=== PATIENT | female | born 1945 | race Caucasian/White ===

== ENCOUNTER 2019-04-10 14:28 | Inpatient (IN) ==
[2019-04-10] MEDS ORDERED: SODIUM CHLORIDE 0.9% 1000ML 1,000 ML IV ONE ×2 (15:07→15:15)
[2019-04-10] MEDS ORDERED: PIPERACILL/TAZOBAC CONSULT ACTIVE PRN ×2 (15:15→19:28)
[2019-04-10] MEDS ORDERED: PIPERACILLIN/TAZOBACTAM 4.5 GM/120 ML BAG IV ONE (15:15)
--- NOTE | 2019-04-10 15:25 | XRay Report ---
XR chest 1V portable HISTORY: 73 years-old Female Sepsis acute sepsis COMPARISON: None available TECHNIQUE: Portable AP view of the chest FINDINGS: Cardiomediastinal and hilar silhouettes are within normal limits. No pneumothorax, pleural effusion, focal airspace consolidation or overt pulmonary edema. Mild right hemidiaphragmatic elevation. Degene rative changes of the shoulders and spine. IMPRESSION: No acute process. The above report was generated using voice recognition software. It may contain grammatical, syntax o r spelling errors. Electronically signed by: Sergio Badillo M.D. 04/10/2019 3:24 PM
[2019-04-10 15:39] LABS: Hematocrit (blood only) 36.5 % (37-47); Hemoglobin 12.3 g/dL (12.0-16.0); Immature Granulocytes # (auto) 0.03 K/uL (0.00-0.02); Immature Granulocytes % (auto) 0.3 %; Lymphocytes # (auto) 0.28 K/uL (1.2-3.4); Mean Corpuscular Hemoglobin 29.4 pg (25-34); Mean Corpuscular Hgb Conc 33.7 g/dL (32-36); Mean Corpuscular Volume 87.3 fL (80-100); Mean Platelet Volume 11.1 fL (7.4-10.4); Monocytes # (auto) 0.51 K/uL (0.11-0.59); Monocytes % (auto) 5.4 %; Neutrophils # (auto) 8.54 K/uL (1.4-6.5); Neutrophils % (auto) 91.3 %; Platelet Count 137 K/uL (130-400); RDW Coefficient of Variation 13.9 % (11.5-14.5); RDW Standard Deviation 44.4 fL (36.4-46.3); Red Blood Count 4.18 M/uL (4.2-5.4); White Blood Count 9.36 K/uL (4.8-10.8)
[2019-04-10 15:49] LABS: INR 1.1 (0.9-1.1); Partial Thromboplastin Ratio 1.1; Partial Thromboplastin Time 29.1 Seconds (21.0-31.0); Prothrombin Time 11.2 Seconds (9.0-12.0)
[2019-04-10 15:56] LABS: Albumin Level 3.6 gm/dl (3.4-5.0); Calcium 8.6 mg/dl (8.5-10.1); Creatinine Clr Calc Pharmacy 35.2 ml/min; Est GFR (African American) 42.1; Est GFR (Non-African American) 36.3; Potassium 3.5 mmol/L (3.5-5.1)
[2019-04-10 15:58] LABS: Albumin Globulin Ratio 0.9 (0.9-2); Bilirubin,Total 0.9 mg/dl (0.2-1); Total Protein 7.6 gm/dl (6.4-8.2)
[2019-04-10] MEDS ORDERED: IOVERSOL 100ml IV PRN (16:42)
--- NOTE | 2019-04-10 17:01 | CT Scan Report ---
CT OF THE ABDOMEN AND PELVIS WITH CONTRAST CLINICAL HISTORY: Abdominal pain and fever. History of bladder mass. COMPARISON STUDY: None. TECHNIQUE: Following IV administration of 92 mL of Optiray-320, axial images of the abdomen and pelvi s were obtained from the lung bases to the proximal femurs. Images were reviewed in the axial, sagitt al, and coronal planes. IV contrast was administered without complication. Automated exposure contro l was utilized for the study. A dose lowering technique was utilized adhering to the principles of A BARBARA. CT DOSE: 518.07 mGy.cm FINDINGS: A few tiny left lower lobe nodules measure up to 4 mm. A 3.8 cm cystic lateral segment hepa tic lesion measures near water attenuation. This contains a thin septation. An additional lateral seg ment lesion measures water attenuation and favors a cyst. There is probable fatty infiltration of the liver with slight nodularity of the liver surface. Mild dilatation of the common bile duct is noted, measuring 7 mm. The gallbladder is moderately distended with mild pericholecystic infiltration. Ther e is no peripancreatic infiltration. There is no pancreatic ductal dilatation. The spleen and adrenal glands are normal. There are bilateral parapelvic cysts. There are numerous subcentimeter bilateral renal lesions which are too small to characterize. No evidence for a bowel obstruction is noted. Ther e is colonic diverticulosis without evidence for acute diverticulitis. No suspicious osseous lesions are noted. There is no lymphadenopathy. Major vasculature is patent. IMPRESSION: 1. Findings highly suggestive of acute cholecystitis. Mild dilatation of the common bile duct. 2. 3.8 cm lateral segment hepatic cystic lesion. This contains a thin septation. This is probably chica ign however a follow-up nonemergent ultrasound is recommended to assess complexity. 3. Fatty infiltration liver with possible early cirrhosis. 4. No bowel obstruction. Colonic diverticulosis without evidence for acute diverticulitis. Electronically signed by: Marcus Bolden M.D. 04/10/2019 5:00 PM
[2019-04-10] MEDS ORDERED: metroNIDAZOLE 500 MG/100 ML BAG IV STA (17:41)
--- NOTE | 2019-04-10 18:43 | History & Physical Report ---
Date of Service April 10, 2019 Assessment & Plan (1) Acute calculous cholecystitis: 73-year-old female with acute calculus cholecystitis Admit to [facility] for laparoscopic cholecystectomy, possible cholangiogram tomorrow in the operating room The risk the procedure were discussed to include but not limited to bleeding, infection, retained stone, bile leak, conversion to open, damage to surrounding structures including common bile duct, need for future or more extensive surgery, and the risks of anesthesia Antibiotics Repeat labs in the morning Clear liquids tonight, n.p.o. after midnight Plan discussed the patient, all questions were answered, the patient expressed understanding agrees the plan of care as stated Present on Admission?: Yes (2) Hypothyroidism: Present on Admission?: Yes (3) Liver cyst: Repeat ultrasound as an outpatient Present on Admission?: Yes History of Present Illness Primary Care Provider: Antonia Harrell MD 73-year-old female presented to the emergency department with 2-day history of abdominal pain. Pain started Saturday. She had pancakes and baca for breakfast. She has had similar but not as severe pain in the past. The pain typically resolved on its own. She also had vomiting could not keep anything down. Her pain is diffuse but seems to be more centered in epigastrium. No prior abdominal surgeries. She is not on any blood thinners and is otherwise healthy except for some hypothyroidism. Allergies Allergy/AdvReac Type Severity Reaction Status Date / Time No Known Allergies Allergy Unverified 04/10/19 14:58 Home Medications Home Medications Medication Instructions Recorded Confirmed Type ibuprofen 800 mg PO DAILY 04/10/19 04/10/19 History levothyroxine [Synthroid] 25 mcg PO DAILY 04/10/19 04/10/19 History Past Med/Surg History Social History Preferred Language: Latvian Feels Safe at Home: Yes Smoking Status: Never smoker Review of Systems Review of Systems: All systems reviewed & are unremarkable except as noted in HPI & below Physical Exam Constitutional: WD/WN, vitals as above Eyes: PERRL, conjunctivae normal, anicteric sclerae ENMT: external ear and nose normal, oropharynx normal Neck: trachea midline, no thyromegaly Respiratory: normal respiratory effort, lungs clear to auscultation Cardiovascular: RRR, no murmur, no edema Gastrointestinal (Abdomen): Percussion/Palpation: + abdomen tender (Tender palpation in the epigastrium and right upper quadrant) and abdomen soft; no guarding, abdomen not rigid and no hepatosplenomegaly Musculoskeletal: no cyanosis or clubbing, extremities motor strength 5/5 Skin: no rashes, warm and dry Neurologic: PERRL, EOMI, accommodation nl, no face palsy, no dysarthria Psychiatric: A+Ox3, euthymic affect Lymphatic: no cervical or axillary lymphadenopathy Results & Data Vital Signs (Past 12 Hours) Vital Signs Temp Pulse Resp BP Pulse Ox 04/10/19 17:15 97 H 24 130/58 L 96 04/10/19 16:30 98 H 24 129/59 L 96 04/10/19 16:00 98 H 24 130/83 97 04/10/19 15:36 96 H 23 120/62 96 04/10/19 14:58 38 C H 111 H 20 105/61 96 Laboratory Results Laboratory Results - last 24 hr 04/10/19 04/10/19 04/10/19 15:26 15:26 15:26 WBC 9.36 RBC 4.18 L Hgb 12.3 Hct 36.5 L MCV 87.3 MCH 29.4 MCHC 33.7 RDW Std Deviation 44.4 RDW Coeff of Marlon 13.9 Plt Count 137 MPV 11.1 H Immature Gran % (Auto) 0.3 Neut % (Auto) 91.3 Lymph % (Auto) 3.0 [place] % (Auto) 5.4 Eos % (Auto) 0.0 Baso % (Auto) 0.0 Immature Gran # (Auto) 0.03 H Neut # (Auto) 8.54 H Lymph # (Auto) 0.28 L [place] # (Auto) 0.51 Eos # (Auto) 0.00 Baso # (Auto) 0.00 PT 11.2 INR 1.1 APTT 29.1 PTT Ratio 1.1 Sodium 133 L Potassium 3.5 Chloride 99 Carbon Dioxide 22 Anion Gap 12.0 H BUN 28 H Creatinine 1.41 H Est Cr Clr Drug Dosing 35.2 Est GFR ( Amer) 42.1 Est GFR (Non-Af Amer) 36.3 BUN/Creatinine Ratio 20.0 Glucose 155 H Lactate Calcium 8.6 Total Bilirubin 0.9 AST 27 ALT 26 Alkaline Phosphatase 64 Total Protein 7.6 Albumin 3.6 Globulin 4.0 Albumin/Globulin Ratio 0.9 04/10/19 15:26 WBC RBC Hgb Hct MCV MCH MCHC RDW Std Deviation RDW Coeff of Marlon Plt Count MPV Immature Gran % (Auto) Neut % (Auto) Lymph % (Auto) [place] % (Auto) Eos % (Auto) Baso % (Auto) Immature Gran # (Auto) Neut # (Auto) Lymph # (Auto) [place] # (Auto) Eos # (Auto) Baso # (Auto) PT INR APTT PTT Ratio Sodium Potassium Chloride Carbon Dioxide Anion Gap BUN Creatinine Est Cr Clr Drug Dosing Est GFR ( Amer) Est GFR (Non-Af Amer) BUN/Creatinine Ratio Glucose Lactate 2.0 Calcium Total Bilirubin AST ALT Alkaline Phosphatase Total Protein Albumin Globulin Albumin/Globulin Ratio Diagnostic Findings CT OF THE ABDOMEN AND PELVIS WITH CONTRAST CLINICAL HISTORY: Abdominal pain and fever. History of bladder mass. COMPARISON STUDY: None. TECHNIQUE: Following IV administration of 92 mL of Optiray-320, axial images of the abdomen and pelvis were obtained from the lung bases to the proximal femurs. Images were reviewed in the axial, sagittal, and coronal planes. IV contrast was administered without complication. Automated exposure control was utilized for the study. A dose lowering technique was utilized adhering to the principles of ALARA. CT DOSE: 518.07 mGy.cm FINDINGS: A few tiny left lower lobe nodules measure up to 4 mm. A 3.8 cm cystic lateral segment hepatic lesion measures near water attenuation. This contains a thin septation. An additional lateral segment lesion measures water attenuation and favors a cyst. There is probable fatty infiltration of the liver with slight nodularity of the liver surface. Mild dilatation of the common bile duct is noted, measuring 7 mm. The gallbladder is moderately distended with mild pericholecystic infiltration. There is no peripancreatic infiltration. There is no pancreatic ductal dilatation. The spleen and adrenal glands are normal. There are bilateral parapelvic cysts. There are numerous subcentimeter bilateral renal lesions which are too small to characterize. No evidence for a bowel obstruction is noted. There is colonic diverticulosis without evidence for acute diverticulitis. No suspicious osseous lesions are noted. There is no lymphadenopathy. Major vasculature is patent. IMPRESSION: 1. Findings highly suggestive of acute cholecystitis. Mild dilatation of the common bile duct. 2. 3.8 cm lateral segment hepatic cystic lesion. This contains a thin septation. This is probably benign however a follow-up nonemergent ultrasound is recommended to assess complexity. 3. Fatty infiltration liver with possible early cirrhosis. 4. No bowel obstruction. Colonic diverticulosis without evidence for acute diverticulitis. Code Status & VTE Plan VTE Prophylaxis Plan VTE Prophylaxis will be ordered: Yes PG Care Time/CCT Total # of Minutes Spent Total Time Spent: 60 Total Time Spent with Patient: Total time spent is greater than 50% in coordination of care (as documented) at patient's floor/unit and/or counseling patient:
[2019-04-10 19:05] LABS: Appearance Urine Clear (Clear); Bacteria Urine Automated Negative (Negative); Bilirubin Urine Negative (Negative); Blood Urine 2+ (Negative); Color Urine Yellow; Epithelial Cell Urine Auto >30 /lpf (0-5); Glucose Urine UA Negative (Negative); Ketones Urine 1+ (Negative); Leukocyte Esterase Urine Trace (Negative); Nitrite Urine Negative (Negative); Protein Urine 1+ (Negative); RBC Urine Automated 0-4 /hpf (0-4); Specific Gravity Urine > 1.045 (1.000-1.030); Urobilinogen Urine Negative (Negative)
[2019-04-10] MEDS: LACTATED RINGER'S 1,000 ML IV SCH (19:28)
[2019-04-10] MEDS ORDERED: MoRPHine SULFATE 4 MG/ML 1 ML CARP\\VIAL IV PRN (19:28)
--- NOTE | 2019-04-10 19:45 | Emergency Department Note ---
Entered by Concha Muniz acting as a scribe for History of Present Illness General Chief complaint: Vomiting Stated complaint: FEVER,VOMITING Source: patient History of Present Illness Onset (ago): day(s) 2 Location: abdomen Pain Consistency: + other (persistent) Quality: + other (vomiting) Exacerbated By: + eating Associated symptoms: + denies other symptoms (dysuria, open wounds or sores), + fever/chills (fever) and + other (rhinorrhea, abdominal pain, back pain); no cough The patient is a 73 year old female who presents to the Emergency Room with complaints of persistent vomiting starting 2 days ago. The patient states that 2 days ago she went to breakfast and when she got home, she started vomiting. She reports that she then developed a fever and rhinorrhea. She reports that today she went to her PCP because she was struggling to keep even water down. She states that while there they told her that her temperature was 103 and told her to come to the ED. The patient complains of abdominal pain that is worse with eating and back pain from vomiting. The patient denies cough, dysuria, and any open wounds or sores. Home Medications Home Medications Medication Instructions Recorded Confirmed Type ibuprofen 800 mg PO DAILY 04/10/19 04/10/19 History levothyroxine [Synthroid] 25 mcg PO DAILY 04/10/19 04/10/19 History Allergies Allergy/AdvReac Type Severity Reaction Status Date / Time No Known Allergies Allergy Unverified 04/10/19 14:58 Past Med/Surg History Medical History No known health problems Family History Other No significant family history Social History Preferred Language: Bengali marital status: Current Living Situation: Spouse current occupational status: retired Feels Safe at Home: Yes Smoking Status: Never smoker Review of Systems See HPI for pertinent positives & negatives. and A total of 10 systems reviewed and were otherwise negative Physical Exam Vital Signs Vital Signs - 24 hr 04/10/19 14:58 04/10/19 15:36 04/10/19 15:40 Temperature 38 C H Temperature Source Oral Sepsis Recent Fever Within 48 Hours Yes Sepsis New/Unexplained Change in Mental Status No Sepsis Action Taken by Nursing No Action Required Pulse Rate 111 H 96 H Pulse Rhythm Regular Pulse Strength Normal Respiratory Rate 20 23 Respiratory Effort / Characteristics Non-Labored Spontaneous Respiratory Depth Normal Respiratory Pattern Regular Blood Pressure 105/61 120/62 Blood Pressure Mean 75 81 Blood Pressure Position Sitting Pulse Oximetry 96 96 Oxygen Delivery Method Room Air Room Air Room Air 04/10/19 16:00 04/10/19 16:30 04/10/19 17:15 Temperature Temperature Source Sepsis Recent Fever Within 48 Hours Sepsis New/Unexplained Change in Mental Status Sepsis Action Taken by Nursing Pulse Rate 98 H 98 H 97 H Pulse Rhythm Pulse Strength Respiratory Rate 24 24 24 Respiratory Effort / Characteristics Respiratory Depth Respiratory Pattern Blood Pressure 130/83 129/59 L 130/58 L Blood Pressure Mean 98 82 82 Blood Pressure Position Pulse Oximetry 97 96 96 Oxygen Delivery Method Room Air Room Air Room Air 04/10/19 17:30 04/10/19 18:00 04/10/19 18:30 Temperature Temperature Source Sepsis Recent Fever Within 48 Hours Sepsis New/Unexplained Change in Mental Status Sepsis Action Taken by Nursing Pulse Rate 95 H 96 H 90 Pulse Rhythm Pulse Strength Respiratory Rate 22 18 12 Respiratory Effort / Characteristics Respiratory Depth Respiratory Pattern Blood Pressure 116/61 116/55 L 95/62 L Blood Pressure Mean 79 75 73 Blood Pressure Position Pulse Oximetry 97 97 96 Oxygen Delivery Method Room Air Room Air Room Air GENERAL: sitting up in bed, holding abdomen, in minimal distress EYE EXAM: normal conjunctiva OROPHARYNX: no exudate, no erythema, lips, buccal mucosa, and tongue normal and mucous membranes are moist NECK: supple, no nuchal rigidity, no adenopathy, non-tender LUNGS: Clear to auscultation. Normal chest wall mechanics HEART: Tachycardic, no murmurs, S1 normal and S2 normal ABDOMEN: abdomen soft, tender to palpation in left lower quadrant, normo-active bowel sounds, no masses, no rebound or guarding. BACK: Back is symmetrical on inspection and there is no deformity, no midline tenderness, no CVA tenderness. SKIN: no rashes and no bruising UPPER EXTREMITIES: upper extremities are grossly normal. LOWER EXTREMITIES: No pitting edema. NEURO EXAM: Normal sensorium, cranial nerves II-XII grossly intact, normal speech, no gross weakness of arms, no gross weakness of legs. Course ED COURSE: Vital signs were reviewed and showed tachycardia and febrile. The patients medical record was reviewed The above diagnostic studies were performed and reviewed. ED treatments and interventions as stated above. 1510: The patient was evaluated in room C2B. A complete history and physical examination was performed. 1722: Upon reevaluation, the patient is resting comfortably. I discussed my findings with the patient and she understands and agrees with the treatment plan. Based on the patients age, coexisting illnesses, exam and lab findings the decision to treat as an inpatient was made. The patient remained stable while under my care. The patient will be evaluated for further management. 1739: I discussed the patient's case with Dr. England- General Surgeon. He will evaluate the patient for further management. Consultations Consultation #1: I discussed the patient's case with Dr. England- General Surgeon. He will evaluate the patient for further management. Time: 17:39 Administered Medications Discontinued Medications Sodium Chloride (Nss 1000ml) 1,000 mls @ 999 mls/hr IV .Q1H1M ONE Stop: 04/10/19 16:07 Last Infusion: 04/10/19 16:29 Dose: 0 mls/hr Documented by: [id number] Admin: 04/10/19 15:26 Dose: 999 mls/hr Documented by: [id number] Piperacillin Sod/Tazobactam Sod (Zosyn) 4.5 gm in 120 mls @ 240 mls/hr IV NOW ONE Stop: 04/10/19 15:44 Last Infusion: 04/10/19 17:40 Dose: 0 mls/hr Documented by: [id number] Admin: 04/10/19 17:10 Dose: 240 mls/hr Documented by: [id number] Sodium Chloride (Nss 1000ml) 1,000 mls @ 999 mls/hr IV .Q1H1M ONE Stop: 04/10/19 16:15 Last Infusion: 04/10/19 18:50 Dose: 0 mls/hr Documented by: [id number] Admin: 04/10/19 17:10 Dose: 999 mls/hr Documented by: [id number] Metronidazole (Flagyl) 500 mg in 100 mls @ 100 mls/hr IV NOW STA Stop: 04/10/19 18:40 Last Admin: 04/10/19 18:50 Dose: 100 mls/hr Documented by: [id number] Ioversol (Optiray 320 100ml) 92 ml IV ONCE PRN PRN Reason: Interaction Checking Stop: 04/14/19 16:41 Last Admin: 04/10/19 16:42 Dose: 92 ml Documented by: [id number] Medical Decision Making Differential Diagnosis Differential diagnosis includes etiologies such as sepsis, UTI, pneumonia, metabolic, electrolyte abnormalities, cardiac sources, intracerebral event, toxicologic, neurologic, as well as others were entertained. Medical Records Attestation: I reviewed the patient's medical records. Home Medications Current Medication List: was personally reviewed by me Laboratory Data Attestation: I reviewed the patient's lab results. Result diagrams: 04/10/19 15:26 04/10/19 15:26 Lab Results 04/10/19 04/10/19 04/10/19 Range/Units 15:26 15:26 15:26 WBC 9.36 (4.8-10.8) K/uL RBC 4.18 L (4.2-5.4) M/uL Hgb 12.3 (12.0-16.0) g/dL Hct 36.5 L (37-47) % MCV 87.3 (80-100) fL MCH 29.4 (25-34) pg MCHC 33.7 (32-36) g/dL RDW Std Deviation 44.4 (36.4-46.3) fL RDW Coeff of Marlon 13.9 (11.5-14.5) % Plt Count 137 (130-400) K/uL MPV 11.1 H (7.4-10.4) fL Immature Gran % (Auto) 0.3 % Neut % (Auto) 91.3 % Lymph % (Auto) 3.0 % [place] % (Auto) 5.4 % Eos % (Auto) 0.0 % Baso % (Auto) 0.0 % Immature Gran # (Auto) 0.03 H (0.00-0.02) K/uL Neut # (Auto) 8.54 H (1.4-6.5) K/uL Lymph # (Auto) 0.28 L (1.2-3.4) K/uL [place] # (Auto) 0.51 (0.11-0.59) K/uL Eos # (Auto) 0.00 (0-0.5) K/uL Baso # (Auto) 0.00 (0-0.2) K/uL PT 11.2 (9.0-12.0) Seconds INR 1.1 (0.9-1.1) APTT 29.1 (21.0-31.0) Seconds PTT Ratio 1.1 Sodium 133 L (136-145) mmol/L Potassium 3.5 (3.5-5.1) mmol/L Chloride 99 (98-107) mmol/L Carbon Dioxide 22 (21-32) mmol/L Anion Gap 12.0 H (3-11) BUN 28 H (7-18) mg/dl Creatinine 1.41 H (0.6-1.2) mg/dl Est Cr Clr Drug Dosing 35.2 ml/min Est GFR ( Amer) 42.1 Est GFR (Non-Af Amer) 36.3 BUN/Creatinine Ratio 20.0 (10-20) Glucose 155 H (70-99) mg/dl Lactate (0.4-2.0) mmol/L Calcium 8.6 (8.5-10.1) mg/dl Total Bilirubin 0.9 (0.2-1) mg/dl AST 27 (15-37) U/L ALT 26 (12-78) U/L Alkaline Phosphatase 64 (45-117) U/L Total Protein 7.6 (6.4-8.2) gm/dl Albumin 3.6 (3.4-5.0) gm/dl Globulin 4.0 (2.5-4.0) gm/dl Albumin/Globulin Ratio 0.9 (0.9-2) 04/10/19 Range/Units 15:26 WBC (4.8-10.8) K/uL RBC (4.2-5.4) M/uL Hgb (12.0-16.0) g/dL Hct (37-47) % MCV (80-100) fL MCH (25-34) pg MCHC (32-36) g/dL RDW Std Deviation (36.4-46.3) fL RDW Coeff of Marlon (11.5-14.5) % Plt Count (130-400) K/uL MPV (7.4-10.4) fL Immature Gran % (Auto) % Neut % (Auto) % Lymph % (Auto) % [place] % (Auto) % Eos % (Auto) % Baso % (Auto) % Immature Gran # (Auto) (0.00-0.02) K/uL Neut # (Auto) (1.4-6.5) K/uL Lymph # (Auto) (1.2-3.4) K/uL [place] # (Auto) (0.11-0.59) K/uL Eos # (Auto) (0-0.5) K/uL Baso # (Auto) (0-0.2) K/uL PT (9.0-12.0) Seconds INR (0.9-1.1) APTT (21.0-31.0) Seconds PTT Ratio Sodium (136-145) mmol/L Potassium (3.5-5.1) mmol/L Chloride (98-107) mmol/L Carbon Dioxide (21-32) mmol/L Anion Gap (3-11) BUN (7-18) mg/dl Creatinine (0.6-1.2) mg/dl Est Cr Clr Drug Dosing ml/min Est GFR ( Amer) Est GFR (Non-Af Amer) BUN/Creatinine Ratio (10-20) Glucose (70-99) mg/dl Lactate 2.0 (0.4-2.0) mmol/L Calcium (8.5-10.1) mg/dl Total Bilirubin (0.2-1) mg/dl AST (15-37) U/L ALT (12-78) U/L Alkaline Phosphatase (45-117) U/L Total Protein (6.4-8.2) gm/dl Albumin (3.4-5.0) gm/dl Globulin (2.5-4.0) gm/dl Albumin/Globulin Ratio (0.9-2) Imaging Data Radiologist's Impression: Radiology results as stated below per my review and the radiologist's interpretation: XR chest 1V portable HISTORY: 73 years-old Female Sepsis acute sepsis COMPARISON: None available TECHNIQUE: Portable AP view of the chest FINDINGS: Cardiomediastinal and hilar silhouettes are within normal limits. No pneumothorax, pleural effusion, focal airspace consolidation or overt pulmonary edema. Mild right hemidiaphragmatic elevation. Degenerative changes of the shoulders and spine. IMPRESSION: No acute process. The above report was generated using voice recognition software. It may contain grammatical, syntax or spelling errors. Electronically signed by: Sergio Badillo M.D. 04/10/2019 3:[address] OF THE ABDOMEN AND PELVIS WITH CONTRAST CLINICAL HISTORY: Abdominal pain and fever. History of bladder mass. COMPARISON STUDY: None. TECHNIQUE: Following IV administration of 92 mL of Optiray-320, axial images of the abdomen and pelvis were obtained from the lung bases to the proximal femurs. Images were reviewed in the axial, sagittal, and coronal planes. IV contrast was administered without complication. Automated exposure control was utilized for the study. A dose lowering technique was utilized adhering to the principles of ALARA. CT DOSE: 518.07 mGy.cm FINDINGS: A few tiny left lower lobe nodules measure up to 4 mm. A 3.8 cm cystic lateral segment hepatic lesion measures near water attenuation. This contains a thin septation. An additional lateral segment lesion measures water attenuation and favors a cyst. There is probable fatty infiltration of the liver with slight nodularity of the liver surface. Mild dilatation of the common bile duct is noted, measuring 7 mm. The gallbladder is moderately distended with mild pericholecystic infiltration. There is no peripancreatic infiltration. There is no pancreatic ductal dilatation. The spleen and adrenal glands are normal. There are bilateral parapelvic cysts. There are numerous subcentimeter bilateral renal lesions which are too small to characterize. No evidence for a bowel obstruction is noted. There is colonic diverticulosis without evidence for acute diverticulitis. No suspicious osseous lesions are noted. There is no lymphadenopathy. Major vasculature is patent. IMPRESSION: 1. Findings highly suggestive of acute cholecystitis. Mild dilatation of the common bile duct. 2. 3.8 cm lateral segment hepatic cystic lesion. This contains a thin septation. This is probably benign however a follow-up nonemergent ultrasound is recommended to assess complexity. 3. Fatty infiltration liver with possible early cirrhosis. 4. No bowel obstruction. Colonic diverticulosis without evidence for acute diverticulitis. Electronically signed by: Marcus Bolden M.D. 04/10/2019 5:00 PM ECG Data Attestation: I personally reviewed and interpreted this ECG as follows: Indication: other (sepsis) Rate (beats per minute): 101 Rhythm: sinus tachycardia Findings: + other (normal axis); no PVC Blood Pressure Blood Pressure Findings: Normal blood pressure Blood Pressure Disposition: did not require urgent referral MDM Narrative Patient is a 73-year-old female who presents the ER febrile and tachycardic. She is complaining of mild abdominal pain and vomiting for the past 2 to 3 days. IV was established blood work was obtained shows no significant leukocytosis or anemia. INR is unremarkable. BMP was unremarkable. LFTs bilirubin was unremarkable as well. UA was contaminated. CT of the abdomen pelvis confirms acute cholecystitis. Patient was given IV fluids, IV Zosyn and Flagyl. Patient did not want anything for pain medications. Patient was updated bedside. Did discuss with hospitalist and patient was admitted for acute cholecystitis. Impression & Plan Cholecystitis, Sepsis Discharge Plan Visit Data *Final* Discharge Date/Time: 04/10/19 18:59 Chief Complaint: Vomiting Stated Complaint: FEVER,VOMITING ED Provider: Kahlil Lu Discharge Problem: Cholecystitis, Sepsis Patient Disposition: Admitted As Inpatient Discharge Instructions Interventions: ED Discharge Assessment Last Done: 04/10/19 18:59 Discharge Problem: Sepsis Qualifiers: Sepsis type: sepsis due to unspecified organism Sepsis acute organ dysfunction status: unspecified Qualified Code(s): A41.9 - Sepsis, unspecified organism The scribe's documentation has been prepared under my direction and personally reviewed by me in its entirety. I confirm that the note above accurately reflects all work, treatment, procedures, and medical decision making performed by me.
[2019-04-10] MEDS: ACETAMINOPHEN 1,000 MG/100 ML VIAL IV PRN (20:16)
[2019-04-10] MEDS: PIPERACILLIN/TAZOBACTAM 3.375 GM in DEXTROSE 5% 100 ML IV SCH (22:03)
[2019-04-11] MEDS: MoRPHine SULFATE 2 MG/ML CARP IV PRN ×2 (01:50→13:46)
[2019-04-11] MEDS: LACTATED RINGER'S 1,000 ML IV SCH ×4 (03:22→23:33)
[2019-04-11] MEDS: PIPERACILLIN/TAZOBACTAM 3.375 GM in DEXTROSE 5% 100 ML IV SCH ×3 (05:40→21:20)
[2019-04-11 06:53] LABS: Basophils # (auto) 0.01 K/uL (0-0.2); Basophils % (auto) 0.1 %; Hematocrit (blood only) 33.8 % (37-47); Hemoglobin 11.3 g/dL (12.0-16.0); Immature Granulocytes # (auto) 0.02 K/uL (0.00-0.02); Immature Granulocytes % (auto) 0.2 %; Lymphocytes # (auto) 0.48 K/uL (1.2-3.4); Lymphocytes % (auto) 5.8 %; Mean Corpuscular Hemoglobin 29.4 pg (25-34); Mean Corpuscular Hgb Conc 33.4 g/dL (32-36); Mean Corpuscular Volume 87.8 fL (80-100); Mean Platelet Volume 11.6 fL (7.4-10.4); Monocytes # (auto) 0.61 K/uL (0.11-0.59); Monocytes % (auto) 7.4 %; Neutrophils # (auto) 7.15 K/uL (1.4-6.5); Neutrophils % (auto) 86.5 %; Platelet Count 105 K/uL (130-400); Red Blood Count 3.85 M/uL (4.2-5.4); White Blood Count 8.27 K/uL (4.8-10.8)
[2019-04-11 07:51] LABS: Albumin Globulin Ratio 0.8 (0.9-2); Albumin Level 2.6 gm/dl (3.4-5.0); BUN Creatinine Ratio 19.5 (10-20); Bilirubin,Total 1.6 mg/dl (0.2-1); Calcium 7.8 mg/dl (8.5-10.1); Creatinine Clr Calc Pharmacy 50.2 ml/min; Est GFR (African American) 64.6; Est GFR (Non-African American) 55.7; Globulin 3.3 gm/dl (2.5-4.0); Potassium 3.2 mmol/L (3.5-5.1); Total Protein 5.9 gm/dl (6.4-8.2)
[2019-04-11] MEDS: ONDANSETRON INJ 2 MG/ML 2 ML VIAL IV PRN ×2 (08:23→15:08)
--- NOTE | 2019-04-11 08:30 | Anesthesiology Consultation ---
Date of Service April 11, 2019 Assessment & Plan (1) Encounter for pre-operative examination: History Surgery Operation Date: 04/11/19 08:30 Proposed Procedures p Laparoscopic Cholecystectomy possible cholangiogram - Malik England DO, FACS Height/Weight Height: 5 ft 5 in Weight: 76.5 kg Allergies Allergy/AdvReac Type Severity Reaction Status Date / Time No Known Allergies Allergy Unverified 04/10/19 14:58 Medications Home Medications Medication Instructions Recorded Confirmed Last Taken ibuprofen 800 mg PO DAILY 04/10/19 04/10/19 04/09/19 21:00 levothyroxine [Synthroid] 25 mcg PO DAILY 04/10/19 04/10/19 04/10/19 Active Medications Generic Name Dose Route Start Last Admin Trade Name Freq PRN Reason Stop Dose Admin Lactated Ringer's 1,000 mls @ 125 mls/hr 04/10/19 19:28 04/11/19 03:22 Lr IV 05/10/19 19:27 125 mls/hr .Q8H GEENA Administration Acetaminophen 1,000 mg in 100 mls @ 400 mls/hr 04/10/19 19:28 04/10/19 20:31 Ofirmev IV 05/10/19 19:27 Infused Q8H PRN Infusion MILD Pain (Scale 1,2,3) Piperacillin Sod/Tazobactam 115 mls @ 28.75 mls/hr 04/10/19 22:00 04/11/19 05:40 Sod 3.375 gm/ Dextrose IV 04/20/19 21:59 28.8 mls/hr Q8H GEENA Administration Protocol Morphine Sulfate 2 mg 04/10/19 19:28 04/11/19 01:50 Morphine Sulfate IV 04/24/19 19:27 2 mg Q3H PRN Administration MODERATE Pain (Scale 4,5,6) Ondansetron HCl 4 mg 04/10/19 19:28 04/11/19 08:23 Zofran IV 05/10/19 19:27 4 mg Q4H PRN Administration Nausea And Vomiting NPO Date Last Intake of Fluids: 04/10/19 Time Last Intake of Fluids: 23:59 Date Last Intake of Solids: 04/10/19 Time Last Intake of Solids: 23:59 Past Medical History Medical History Cholecystitis Hypothyroidism No known health problems Past Family History Family History Other No significant family history Social History Smoking Status: Never smoker Hx Alcohol Use: No Hx Substance Use: No Physical Exam Vital Signs Last Vital Signs Temp 36.4 C L 04/11/19 07:18 Pulse 84 04/11/19 07:18 Resp 16 04/11/19 07:18 BP 105/64 04/11/19 07:18 Pulse Ox 95 04/11/19 07:18 Testing Laboratory Results 04/11/19 05:55 04/11/19 05:55 PT 11.2 Seconds (9.0-12.0) 04/10/19 15:26 INR 1.1 (0.9-1.1) 04/10/19 15:26 APTT 29.1 Seconds (21.0-31.0) 04/10/19 15:26 Urine Color Yellow 04/10/19 18:45 Urine Appearance Clear (Clear) 04/10/19 18:45 Urine pH 5.0 (4.5-7.5) 04/10/19 18:45 Ur Specific Coleman > 1.045 (1.000-1.030) H 04/10/19 18:45 Urine Protein 1+ (Negative) H 04/10/19 18:45 Urine Glucose (UA) Negative (Negative) 04/10/19 18:45 Urine Ketones 1+ (Negative) H 04/10/19 18:45 Urine Nitrite Negative (Negative) 04/10/19 18:45 Ur Leukocyte Esterase Trace (Negative) H 04/10/19 18:45 Urine WBC (Auto) 1-5 /hpf (0-5) 04/10/19 18:45 Urine RBC (Auto) 0-4 /hpf (0-4) 04/10/19 18:45 U Hyaline Cast (Auto) 10-30 /lpf (0-5) H 04/10/19 18:45 U Epithel Cells (Auto) >30 /lpf (0-5) H 04/10/19 18:45 Urine Bacteria (Auto) Negative (Negative) 04/10/19 18:45 04/10/19 15:26 Aerobic Blood Culture - Preliminary Blood Gram negative bacilli Anaerobic Blood Culture - Preliminary Gram negative bacilli 04/10/19 15:13 Aerobic Blood Culture - Preliminary Blood Gram negative bacilli Electrocardiogram Date: 04/10/19 Findings: + ST @ (101) Chest X-Ray Date: 04/10/19 Findings: + NAD
[2019-04-11] MEDS ORDERED: HYDROmorphone INJ 1 MG/ML SYRINGE IV PRN (08:32)
[2019-04-11] MEDS ORDERED: fentaNYL citrate 100 MCG/2 ML VIAL IV PRN (08:32)
[2019-04-11] MEDS ORDERED: ePHEDrine sulfate 50 MG/ML AMP IV PRN (08:32)
[2019-04-11] MEDS ORDERED: ATROPINE SULFATE 0.1 MG/ML 10ML SYR IV PRN (08:32)
[2019-04-11] MEDS ORDERED: ONDANSETRON INJ 2 MG/ML 2 ML VIAL IV PRN (08:32)
[2019-04-11] MEDS ORDERED: LIDOCAINE HCL 2% 2 ML VIAL/AMP(20MG/ML) INFIL ONE (08:37)
[2019-04-11] MEDS ORDERED: ONDANSETRON INJ 2 MG/ML 2 ML VIAL ONE ×2 (08:37→10:27)
[2019-04-11] MEDS ORDERED: fentaNYL citrate 100 MCG/2 ML VIAL ONE (08:37)
[2019-04-11] MEDS ORDERED: ROCURONIUM BROMIDE 10 MG/ML 5 ML VIAL ONE (08:37)
[2019-04-11] MEDS ORDERED: DEXAMETHASONE SOD INJ 4 MG/ML VIAL ONE (08:37)
[2019-04-11] MEDS ORDERED: PROPOFOL IV EMULSION 10 MG/ML 20 ML VIAL IV ONE (08:37)
[2019-04-11] MEDS ORDERED: CONRAY 60% 50 ML VIAL ONE (08:45)
[2019-04-11] MEDS ORDERED: BUPIVACAINE 0.5 % 5 MG/1 ML MPF 30ML VIAL ONE (08:45)
--- NOTE | 2019-04-11 08:48 | Surgery Progress Note ---
Date of Service April 11, 2019 Assessment & Plan (1) Acute calculous cholecystitis: 73-year-old female with acute calculus cholecystitis Plan for laparoscopic cholecystectomy, possible cholangiogram today The risks of the procedure were discussed to include but not limited to bleeding, infection, retained stone, bile leak, conversion to open, damage to surrounding structures including common bile duct, need for future or more extensive surgery, and the risks of anesthesia + blood cultures, consult ID, continue zosyn post op Plan discussed the patient, all questions were answered, the patient expressed understanding agrees the plan of care as stated (2) Hypothyroidism: (3) Liver cyst: Repeat ultrasound as an outpatient (4) Gram negative sepsis: Subjective 73 y/o female admitted with cholecystitis. NO changes overnight. Called with +blood cultures. On abx. Review of Systems Review of Systems: All systems reviewed & are unremarkable except as noted in HPI & below Physical Exam Constitutional: WD/WN, vitals as above Eyes: PERRL, conjunctivae normal, anicteric sclerae ENMT: external ear and nose normal, oropharynx normal Neck: trachea midline, no thyromegaly Respiratory: normal respiratory effort, lungs clear to auscultation Cardiovascular: RRR, no murmur, no edema Gastrointestinal (Abdomen): Percussion/Palpation: + abdomen tender (Tender palpation in the epigastrium and right upper quadrant) and abdomen soft; no guarding, abdomen not rigid and no hepatosplenomegaly Musculoskeletal: no cyanosis or clubbing, extremities motor strength 5/5 Skin: no rashes, warm and dry Neurologic: PERRL, EOMI, accommodation nl, no face palsy, no dysarthria Psychiatric: A+Ox3, euthymic affect Lymphatic: no cervical or axillary lymphadenopathy Results & Data Vital Signs (Past 12 Hours) Vital Signs Temp Pulse Resp BP Pulse Ox 04/11/19 07:18 36.4 C L 84 16 105/64 95 04/10/19 23:13 36.4 C L 69 16 89/53 L 94 Laboratory Results Laboratory Results - last 24 hr 04/10/19 04/10/19 04/10/19 15:26 15:26 15:26 WBC 9.36 RBC 4.18 L Hgb 12.3 Hct 36.5 L MCV 87.3 MCH 29.4 MCHC 33.7 RDW Std Deviation 44.4 RDW Coeff of Marlon 13.9 Plt Count 137 MPV 11.1 H Immature Gran % (Auto) 0.3 Neut % (Auto) 91.3 Lymph % (Auto) 3.0 Gentry % (Auto) 5.4 Eos % (Auto) 0.0 Baso % (Auto) 0.0 Immature Gran # (Auto) 0.03 H Neut # (Auto) 8.54 H Lymph # (Auto) 0.28 L Gentry # (Auto) 0.51 Eos # (Auto) 0.00 Baso # (Auto) 0.00 PT 11.2 INR 1.1 APTT 29.1 PTT Ratio 1.1 Sodium 133 L Potassium 3.5 Chloride 99 Carbon Dioxide 22 Anion Gap 12.0 H BUN 28 H Creatinine 1.41 H Est Cr Clr Drug Dosing 35.2 Est GFR ( Amer) 42.1 Est GFR (Non-Af Amer) 36.3 BUN/Creatinine Ratio 20.0 Glucose 155 H Lactate Calcium 8.6 Total Bilirubin 0.9 AST 27 ALT 26 Alkaline Phosphatase 64 Total Protein 7.6 Albumin 3.6 Globulin 4.0 Albumin/Globulin Ratio 0.9 Urine Color Urine Appearance Urine pH Ur Specific [place] Urine Protein Urine Glucose (UA) Urine Ketones Urine Blood Urine Nitrite Urine Bilirubin Urine Urobilinogen Ur Leukocyte Esterase Urine WBC (Auto) Urine RBC (Auto) U Hyaline Cast (Auto) U Epithel Cells (Auto) Urine Bacteria (Auto) Granular Casts Urine Yeast 04/10/19 04/10/19 04/11/19 15:26 18:45 05:55 WBC 8.27 RBC 3.85 L Hgb 11.3 L Hct 33.8 L MCV 87.8 MCH 29.4 MCHC 33.4 RDW Std Deviation 45.0 RDW Coeff of Marlon 14.0 Plt Count 105 L MPV 11.6 H Immature Gran % (Auto) 0.2 Neut % (Auto) 86.5 Lymph % (Auto) 5.8 Gentry % (Auto) 7.4 Eos % (Auto) 0.0 Baso % (Auto) 0.1 Immature Gran # (Auto) 0.02 Neut # (Auto) 7.15 H Lymph # (Auto) 0.48 L Gentry # (Auto) 0.61 H Eos # (Auto) 0.00 Baso # (Auto) 0.01 PT INR APTT PTT Ratio Sodium Potassium Chloride Carbon Dioxide Anion Gap BUN Creatinine Est Cr Clr Drug Dosing Est GFR ( Amer) Est GFR (Non-Af Amer) BUN/Creatinine Ratio Glucose Lactate 2.0 Calcium Total Bilirubin AST ALT Alkaline Phosphatase Total Protein Albumin Globulin Albumin/Globulin Ratio Urine Color Yellow Urine Appearance Clear Urine pH 5.0 Ur Specific [place] > 1.045 H Urine Protein 1+ H Urine Glucose (UA) Negative Urine Ketones 1+ H Urine Blood 2+ H Urine Nitrite Negative Urine Bilirubin Negative Urine Urobilinogen Negative Ur Leukocyte Esterase Trace H Urine WBC (Auto) 1-5 Urine RBC (Auto) 0-4 U Hyaline Cast (Auto) 10-30 H U Epithel Cells (Auto) >30 H Urine Bacteria (Auto) Negative Granular Casts 1-5 H Urine Yeast Not Reportable 04/11/19 05:55 WBC RBC Hgb Hct MCV MCH MCHC RDW Std Deviation RDW Coeff of Marlon Plt Count MPV Immature Gran % (Auto) Neut % (Auto) Lymph % (Auto) Gentry % (Auto) Eos % (Auto) Baso % (Auto) Immature Gran # (Auto) Neut # (Auto) Lymph # (Auto) Gentry # (Auto) Eos # (Auto) Baso # (Auto) PT INR APTT PTT Ratio Sodium 137 Potassium 3.2 L Chloride 105 Carbon Dioxide 23 Anion Gap 9.0 BUN 19 H Creatinine 0.99 D Est Cr Clr Drug Dosing 50.2 Est GFR ( Amer) 64.6 Est GFR (Non-Af Amer) 55.7 BUN/Creatinine Ratio 19.5 Glucose 105 H Lactate Calcium 7.8 L Total Bilirubin 1.6 H D AST 79 H ALT 44 Alkaline Phosphatase 65 Total Protein 5.9 L D Albumin 2.6 L Globulin 3.3 Albumin/Globulin Ratio 0.8 L Urine Color Urine Appearance Urine pH Ur Specific [place] Urine Protein Urine Glucose (UA) Urine Ketones Urine Blood Urine Nitrite Urine Bilirubin Urine Urobilinogen Ur Leukocyte Esterase Urine WBC (Auto) Urine RBC (Auto) U Hyaline Cast (Auto) U Epithel Cells (Auto) Urine Bacteria (Auto) Granular Casts Urine Yeast Procedure Result Verified Site Blood Culture Aerobic Preliminary 04/11/19-0318 Organism 1 Gram negative bacilli Sens Sensitivities Dependent on Further Identification Blood Culture Anaerobic Preliminary 04/11/19-0200 Organism 1 Gram negative bacilli Sens No Sensitivities to Follow Phoned positive Blood Culture Gram Stain report to JESSICA COBOS on 04/11/19 at 0159 [place] [id number]. [place] [id number]. PG Care Time/CCT Total # of Minutes Spent Total Time Spent with Patient: Total time spent is greater than 50% in coordination of care (as documented) at patient's floor/unit and/or counseling patient:
--- NOTE | 2019-04-11 10:04 | Fluoroscopy Report ---
INTRAOPERATIVE CHOLANGIOGRAM HISTORY: Post cholecystectomy. FLUOROSCOPY TIME: 8 seconds. FINDINGS: Fluoroscopy was provided for an intraoperative cholangiogram status post cholecystectomy. C ontrast was injected through the cystic duct remnant. The common bile duct is normal in course and ca liber. There are no filling defects seen within the common bile duct to suggest a retained stone. Co ntrast extends into the small bowel. There is no intrahepatic bile duct dilatation. IMPRESSION: Fluoroscopy provided for an intraoperative cholangiogram status post cholecystectomy. No filling defects within the common bile duct. Electronically signed by: Savage Wakefield M.D. 04/11/2019 10:02 AM
[2019-04-11] MEDS ORDERED: GLYCOPYRROLATE 0.2 MG/ML VIAL ONE (10:27)
[2019-04-11] MEDS ORDERED: NEOSTIGMINE METHYLSULFATE 5 MG/5 ML SYR ONE (10:27)
--- NOTE | 2019-04-11 10:33 | Operative Report ---
PG Post Operative Report Pre & Post Diagnosis Operation Date: 04/11/19 08:30 Pre-Op Diagnosis: CHOLECYSTITIS Post-Op Diagnosis: CHOLECYSTITIS, possible cirrhosis Procedure Operation Date: 04/11/19 08:30 Laparoscopic cholecystectomy with cholangiogram, liver biopsy Surgeon Malik England DO, FACS Pleating Machine Operator Angela Menon Estimated Blood Loss 15 Findings Consistent with Post-Op Diagnosis Acute cholecystitis. Cholangiogram performed and showed patent biliary system. Critical view of safety obtained, cystic duct and artery doubly clipped and divided. Liver had a mottled appearance to it, a liver biopsy was performed. Good hemostasis. Specimens Gallbladder Liver Anesthesia Type General Complications none Disposition Accompanied Patient To Recovery: No Disposition: Recovery Room Indications 73-year-old female presented to the emergency department with signs and symptoms of acute cholecystitis along with blood cultures growing gram-negative bacteria. She was treated with antibiotics overnight, plan for laparoscopic cholecystectomy with cholangiogram. The risks of the procedure were discussed, all questions were answered, and the patient agreed to proceed with surgery as planned. Description of Procedure The patient was properly identified, consented, and taken to the operating room where she was placed in the supine position. General endotracheal anesthesia was induced. SCDs and a safety belt were placed. Preoperative antibiotics were administered. The patient's abdomen was prepped and draped in the standard sterile fashion. A surgical timeout was performed and all parties were in agreement that this was the correct patient and procedure to be performed and we continued as planned. An incision was made superior and to the left of the umbilicus overlying the rectus muscle and the Veress needle was inserted. Saline drop test confirmed entry into the peritoneum. The abdomen was insufflated with carbon dioxide which the patient tolerated without incident. The abdomen was then entered using the Optiview technique and a 5 mm trocar. The laparoscope was inserted and no damage from initial trocar or Veress needle placement was noted, no gross abnormalities were noted within the 4 quadrants of the abdomen. An 11 mm port was placed in the subxiphoid position and two 5 mm ports were then placed in the right subcostal position. The patient was placed in reverse Trendelenburg position and rotated towards the left. The gallbladder was acutely inflamed and very friable. It tore during retraction and dark bilious liquid was drained. The liver also appeared mottled consistent with signs of possible early cirrhosis. The dome of the gallbladder was retracted towards the left upper quadrant and the infundibulum was retracted toward the right lower quadrant revealing Calot's triangle. Peritoneal attachments were taken down with electrocautery and blunt dissection. The cystic duct and artery were circumferentially dissected. A window of safety was obtained showing the cystic duct entering the gallbladder with no aberrant structures noted. The Espinoza cholangiocatheter was then used to perform an intraoperative cholangiogram which showed no filling defects, and good filling of the duodenum and hepatic radicals with contrast. The cystic duct and artery were doubly clipped and divided. The gallbladder was then lifted off the gallbladder fossa with electrocautery. The gallbladder was placed in an Endo Catch bag and removed through the subxiphoid port site. Using the harmonic scalpel liver biopsy was performed. The right upper quadrant was irrigated and hemostasis was found to be good. 5 mm trochars were removed under direct visualization and the abdomen was allowed to collapse. The subxiphoid port site fascia was closed with 0 Vicryl suture utilizing the Сергей-Vero device. The wound was irrigated, and the skin of all ports was closed with 4-0 Monocryl subcuticular sutures. Dermabond was placed over the wounds. The patient was extubated in the operating room and taken to the PACU where she recovered without apparent incident. All sponge, instrument and needle counts were correct at the conclusion of the procedure. The patient tolerated the procedure well. The physician's orthodontist assistant was present and scrubbed for the entirety of the case and was essential in positioning the patient, prepping and draping, retraction and exposure, driving the laparoscope, removal of the gallbladder, closure the incisions, and placement of the dressings. I attest to the content of the Intraoperative Record and any orders documented therein. Any exceptions are noted below.
--- NOTE | 2019-04-11 11:19 | Anesthesiology Progress Note ---
Date of Service April 11, 2019 Anesthesia Post Procedure Vital Signs Vital Signs: Temp Pulse Pulse Pulse Resp BP BP 04/11/19 11:10 83 18 127/60 04/11/19 11:00 83 18 127/60 04/11/19 10:50 80 16 126/61 04/11/19 10:44 37.1 C 92 H 18 135/67 04/11/19 07:18 36.4 C L 84 16 105/64 04/10/19 23:13 36.4 C L 69 16 89/53 L 04/10/19 19:15 36.9 C 91 H 18 109/68 04/10/19 18:30 90 12 95/62 L 04/10/19 18:00 96 H 18 116/55 L 04/10/19 17:30 95 H 22 116/61 04/10/19 17:15 97 H 24 130/58 L 04/10/19 16:30 98 H 24 129/59 L 04/10/19 16:00 98 H 24 130/83 04/10/19 15:36 96 H 23 120/62 04/10/19 14:58 38 C H 111 H 20 105/61 Pulse Ox 04/11/19 11:10 100 04/11/19 11:00 100 04/11/19 10:50 100 04/11/19 10:44 98 04/11/19 07:18 95 04/10/19 23:13 94 04/10/19 19:15 96 04/10/19 18:30 96 04/10/19 18:00 97 04/10/19 17:30 97 04/10/19 17:15 96 04/10/19 16:30 96 04/10/19 16:00 97 04/10/19 15:36 96 04/10/19 14:58 96 Pain Intensity Back: Pain Intensity: 5 Bilateral Abdomen: Pain Intensity: 5 Transfer of Care Handoff Completed per policy Notes Mental Status: alert / awake / arousable and participated in evaluation Patient Amnestic to Procedure: Yes Nausea / Vomiting: adequately controlled Pain: adequately controlled Airway Patency, RR, SpO2: stable & adequate BP & HR: stable & adequate Hydration State: stable & adequate Anesthetic Complications: no major complications apparent and Pt Satisfied with anesthetic care
[2019-04-11] MEDS ORDERED: OXYCODONE/ACETAMINOPHEN 5mg/325mg TAB PO PRN ×2 (11:44)
[2019-04-11] MEDS: DiphenhydrAMINE HCL 50 MG/ML VIAL IV PRN (22:15)
[2019-04-12 06:08] LABS: Eosinophils # (auto) 0.01 K/uL (0-0.5); Eosinophils % (auto) 0.1 %; Hematocrit (blood only) 28.7 % (37-47); Hemoglobin 9.5 g/dL (12.0-16.0); Immature Granulocytes # (auto) 0.02 K/uL (0.00-0.02); Immature Granulocytes % (auto) 0.3 %; Lymphocytes # (auto) 0.51 K/uL (1.2-3.4); Lymphocytes % (auto) 6.8 %; Mean Corpuscular Hemoglobin 29.1 pg (25-34); Mean Corpuscular Hgb Conc 33.1 g/dL (32-36); Mean Platelet Volume 11.6 fL (7.4-10.4); Monocytes # (auto) 0.65 K/uL (0.11-0.59); Monocytes % (auto) 8.6 %; Neutrophils # (auto) 6.35 K/uL (1.4-6.5); Neutrophils % (auto) 84.2 %; Platelet Count 107 K/uL (130-400); RDW Standard Deviation 45.1 fL (36.4-46.3); Red Blood Count 3.26 M/uL (4.2-5.4); White Blood Count 7.54 K/uL (4.8-10.8)
[2019-04-12] MEDS: PIPERACILLIN/TAZOBACTAM 3.375 GM in DEXTROSE 5% 100 ML IV SCH (06:08)
[2019-04-12] MEDS: LEVOTHYROXINE SODIUM 25 MCG TABLET PO SCH (06:08)
[2019-04-12 06:38] LABS: Albumin Level 2.3 gm/dl (3.4-5.0); BUN Creatinine Ratio 22.9 (10-20); Bilirubin Direct 0.4 mg/dl (0-0.2); Calcium 8.2 mg/dl (8.5-10.1); Est GFR (Non-African American) 39.7; Potassium 3.6 mmol/L (3.5-5.1)
[2019-04-12 06:46] LABS: Bilirubin,Total 0.7 mg/dl (0.2-1); Total Protein 5.4 gm/dl (6.4-8.2)
[2019-04-12] MEDS ORDERED: Nursing to Pharmacy Communication ONE (07:29)
[2019-04-12] MEDS: LACTATED RINGER'S 1,000 ML IV SCH ×2 (07:43→21:39)
--- NOTE | 2019-04-12 07:45 | Infectious Disease Consult ---
Date of Consultation April 12, 2019 Assessment & Plan (1) Gram negative sepsis: repeat blood cultures, change to IV levaquin, stop zosyn. when eating full diet and ready for d/c can change to po levaquin 500mg daily to complete 14 days. suggest probiotics as well. (2) Cholecystitis: History of Present Illness Attending Physician: Malik England DO, FACS pt admitted with abd pain, ct revealed cholecystitis. Underwent lapchole yesterday, tolerated well. In ER had temp 38, blood cultures obtained, growing serritia, intermediate to zosyn only. She is on zosyn and tolerating well. ambulating in room on my exam. wbc normal. creat normal. denies f/c denies cp, sob, cough, no abd pain currently, overall much improved, no n/v/d. no gu symptoms Allergies Allergy/AdvReac Type Severity Reaction Status Date / Time No Known Allergies Allergy Unverified 04/10/19 14:58 Home Medications Home Medications Medication Instructions Recorded Confirmed Type ibuprofen 800 mg PO DAILY 04/10/19 04/10/19 History levothyroxine [Synthroid] 25 mcg PO DAILY 04/10/19 04/10/19 History oxycodone-acetaminophen [Percocet] 1 - 2 tab PO .every 4-6 hours PRN 04/11/19 Rx #15 tab Patient History Medical History Cholecystitis Hypothyroidism No known health problems Family History Other No significant family history Social History Preferred Language: Albanian Communication Ability: Effective Pulping Machine Operator Required: No Beliefs That Will Affect Care: None marital status: Current Living Situation: Spouse current occupational status: retired Feels Safe at Home: Yes Smoking Status: Never smoker Hx Alcohol Use: No Hx Substance Use: No Review of Systems Review of Systems: All systems reviewed & are unremarkable except as noted in HPI & below Physical Exam Constitutional: WD/WN, vitals as above Eyes: PERRL, conjunctivae normal, anicteric sclerae ENMT: external ear and nose normal, oropharynx normal Neck: normal visual inspection Respiratory: normal respiratory effort, lungs clear to auscultation Cardiovascular: RRR, no murmur, no edema Gastrointestinal (Abdomen): normal bowel sounds, soft, nontender, no hepatosplenomegaly Musculoskeletal: no cyanosis or clubbing, extremities motor strength 5/5 Skin: no rashes, warm and dry Psychiatric: A+Ox3, euthymic affect Results & Data Vital Signs (Past 12 Hours) Vital Signs Temp Pulse Resp BP Pulse Ox 04/12/19 07:22 36.5 C 62 18 105/53 L 91 04/12/19 03:03 36.7 C 74 16 96/61 L 93 04/11/19 22:57 36.7 C 71 16 95/60 L 93 Laboratory Results Microbiology 04/10/19 15:26 Blood Aerobic Blood Culture - Preliminary Serratia marcescens 04/10/19 15:26 Blood Anaerobic Blood Culture - Preliminary Serratia marcescens 04/10/19 15:13 Blood Aerobic Blood Culture - Preliminary Serratia marcescens 04/10/19 15:13 Blood Anaerobic Blood Culture - Final 04/10/19 18:45 Urine,Clean Catch Urine Culture - Preliminary No growth - Less than 1,000 colonies/mL, Final report to follow. PG Care Time/CCT Total # of Minutes Spent Total Time Spent with Patient: Total time spent is greater than 50% in coordination of care (as documented) at patient's floor/unit and/or counseling patient:
--- NOTE | 2019-04-12 09:22 | Surgery Progress Note ---
Date of Service April 12, 2019 Assessment & Plan (1) Acute calculous cholecystitis: POD #1 laparoscopic cholecystectomy, doing well. Given her bacteremia, we will keep her for 1 more day with plans for discharge tomorrow morning if she continues to do well. Her antibiotics have been changed to Levaquin, and she will complete a 14-day course. Advance diet as tolerated IV Levaquin today, transition to oral Levaquin tomorrow Repeat labs in a.m. She will need repeat outpatient ultrasound of the liver cysts that was seen on imaging (2) Liver cyst: (3) Gram negative sepsis: Subjective 73-year-old female admitted with cholecystitis, POD #1 laparoscopic cholecystectomy. This morning she is feeling well tolerated her diet. Her blood cultures are growing Serratia marcescens, and infectious disease was consulted and is made recommendations. The symptoms that she had prior to admission are gone. Physical Exam Constitutional: WD/WN, vitals as above Gastrointestinal (Abdomen): normal bowel sounds, soft, nontender, no hepatosplenomegaly Inspection/Auscultation: + abdominal surgical incision (Incisions healing well, no evidence of infection) Results & Data Vital Signs (Past 12 Hours) Vital Signs Temp Pulse Resp BP Pulse Ox Pulse Ox 04/12/19 07:45 91 04/12/19 07:22 36.5 C 62 18 105/53 L 91 04/12/19 03:03 36.7 C 74 16 96/61 L 93 04/11/19 22:57 36.7 C 71 16 95/60 L 93 Laboratory Results Laboratory Results - last 24 hr 04/12/19 04/12/19 05:57 05:57 WBC 7.54 RBC 3.26 L Hgb 9.5 L Hct 28.7 L MCV 88.0 MCH 29.1 MCHC 33.1 RDW Std Deviation 45.1 RDW Coeff of Marlon 14.0 Plt Count 107 L MPV 11.6 H Immature Gran % (Auto) 0.3 Neut % (Auto) 84.2 Lymph % (Auto) 6.8 [place] % (Auto) 8.6 Eos % (Auto) 0.1 Baso % (Auto) 0.0 Immature Gran # (Auto) 0.02 Neut # (Auto) 6.35 Lymph # (Auto) 0.51 L A[place] # (Auto) 0.65 H Eos # (Auto) 0.01 Baso # (Auto) 0.00 Sodium 136 Potassium 3.6 Chloride 104 Carbon Dioxide 26 Anion Gap 7.0 BUN 30 H D Creatinine 1.31 H D Est Cr Clr Drug Dosing 38.0 Est GFR ( Amer) 46.0 Est GFR (Non-Af Amer) 39.7 BUN/Creatinine Ratio 22.9 H Glucose 140 H Calcium 8.2 L Total Bilirubin 0.7 D Direct Bilirubin 0.4 H AST 74 H ALT 59 Alkaline Phosphatase 69 Total Protein 5.4 L Albumin 2.3 L Diagnostic Findings Procedure Result Verified Site Blood Culture Aerobic Preliminary 04/12/19 Organism 1 Serratia marcescens Sens No Sensitivities to Follow Please see culture number [id number] for sensitivities. Blood Culture Anaerobic Preliminary 04/12/19 Organism 1 Serratia marcescens Sens No Sensitivities to Follow Phoned positive Blood Culture Gram Stain report to JESSICA COBOS on 04/11/19 at 0159 [place] [id number]. [place] [id number]. PG Care Time/CCT Total # of Minutes Spent Total Time Spent with Patient: Total time spent is greater than 50% in coordination of care (as documented) at patient's floor/unit and/or counseling patient:
[2019-04-12] MEDS ORDERED: LEVOFLOXACIN/D5W 500 MG/100 ML BAG IV ONE (10:00)
--- NOTE | 2019-04-12 10:37 | Anesthesiology Progress Note ---
Date of Service April 12, 2019 Anesthesia Post Procedure Vital Signs Vital Signs: Temp Pulse Pulse Resp BP Pulse Ox Pulse Ox 04/12/19 07:45 91 04/12/19 07:22 36.5 C 62 18 105/53 L 91 04/12/19 03:03 36.7 C 74 16 96/61 L 93 04/11/19 22:57 36.7 C 71 16 95/60 L 93 04/11/19 19:02 36.7 C 77 17 101/61 92 04/11/19 15:13 37 C 82 18 108/64 95 04/11/19 13:47 73 16 107/65 97 04/11/19 12:49 73 16 115/72 97 04/11/19 12:16 73 16 111/70 97 04/11/19 11:40 36.7 C 78 16 113/69 95 04/11/19 11:28 36.8 C 67 15 118/65 98 04/11/19 11:19 36.8 C 71 16 125/62 100 04/11/19 11:10 83 18 127/60 100 04/11/19 11:00 83 18 127/60 100 04/11/19 10:50 80 16 126/61 100 04/11/19 10:44 37.1 C 92 H 18 135/67 98 Notes Mental Status: alert / awake / arousable and participated in evaluation Nausea / Vomiting: adequately controlled Pain: adequately controlled Airway Patency, RR, SpO2: stable & adequate BP & HR: stable & adequate Hydration State: stable & adequate
[2019-04-12] MEDS: ACETAMINOPHEN 1,000 MG/100 ML VIAL IV PRN (16:26)
[2019-04-12] MEDS: ONDANSETRON INJ 2 MG/ML 2 ML VIAL IV PRN (21:40)
[2019-04-12] MEDS: DiphenhydrAMINE HCL 50 MG/ML VIAL IV PRN (22:45)
[2019-04-12 23:27] VITALS: TEMP 98.6
[2019-04-13] MEDS: LEVOTHYROXINE SODIUM 25 MCG TABLET PO SCH (06:00)
[2019-04-13 06:38] LABS: Hematocrit (blood only) 30.6 % (37-47); Hemoglobin 10.4 g/dL (12.0-16.0); Immature Granulocytes # (auto) 0.02 K/uL (0.00-0.02); Immature Granulocytes % (auto) 0.3 %; Lymphocytes # (auto) 0.77 K/uL (1.2-3.4); Lymphocytes % (auto) 10.9 %; Mean Corpuscular Hemoglobin 29.5 pg (25-34); Mean Corpuscular Volume 86.7 fL (80-100); Mean Platelet Volume 11.7 fL (7.4-10.4); Monocytes # (auto) 0.79 K/uL (0.11-0.59); Monocytes % (auto) 11.2 %; Neutrophils # (auto) 5.46 K/uL (1.4-6.5); Neutrophils % (auto) 77.6 %; Platelet Count 140 K/uL (130-400); RDW Coefficient of Variation 14.3 % (11.5-14.5); RDW Standard Deviation 45.1 fL (36.4-46.3); Red Blood Count 3.53 M/uL (4.2-5.4); White Blood Count 7.04 K/uL (4.8-10.8)
[2019-04-13 07:12] LABS: BUN Creatinine Ratio 24.3 (10-20); Calcium 8.2 mg/dl (8.5-10.1); Creatinine Clr Calc Pharmacy 51.3 ml/min; Est GFR (African American) 66.2; Est GFR (Non-African American) 57.1; Potassium 3.3 mmol/L (3.5-5.1)
--- NOTE | 2019-04-13 07:29 | Anesthesiology Progress Note ---
Date of Service April 13, 2019 Anesthesia Post Procedure Vital Signs Vital Signs: Temp Pulse Resp BP Pulse Ox Pulse Ox 04/12/19 23:24 37.0 C 77 16 147/73 H 97 04/12/19 14:55 36.8 C 63 17 113/60 96 04/12/19 07:45 91 Pain Intensity Back: Pain Intensity: 5 Bilateral Abdomen: Pain Intensity: 2 Notes Mental Status: alert / awake / arousable and participated in evaluation Nausea / Vomiting: adequately controlled Pain: adequately controlled Airway Patency, RR, SpO2: stable & adequate BP & HR: stable & adequate Hydration State: stable & adequate Anesthetic Complications: no major complications apparent and Pt Satisfied with anesthetic care
[2019-04-13 08:25] VITALS: BP 138/77; PULSE 74; O2SAT 95
[2019-04-13] MEDS ORDERED: POTASSIUM CHLORIDE 20 MEQ TABCR PO STA (08:38)
--- NOTE | 2019-04-13 09:52 | Surgery Progress Note ---
Date of Service April 13, 2019 Assessment & Plan (1) Cholecystitis: POD#2 laparoscopic cholecystectomy Progressing well, tolerating regular diet, pain controlled WBC: 7 today; will replete potassium this AM ID saw patient and recommending 14day course of po Levaquin for bacteremia Patient stable for discharge to home with plans to follow up in clinic within 2 weeks Supervising Physician Co-Signing Physician Notes Patient seen and examined, agree with above. Status post laparoscopic cholecystectomy for cholecystitis, also with Serratia marcescens in her blood cultures. Doing well, afebrile, tolerating diet. Transition to oral Levaquin, follow-up in clinic in 2 weeks. Activity restrictions and wound care instructions reviewed. Return precautions given, call with questions or concerns. Place potassium prior to discharge. Subjective Patient feels much better each day and is ambulating the halls. Pain is manageable. She is passing gas, no bowel movement yet. Tolerating a regular diet without nausea/vomiting. Physical Exam Physical Exam: awake/alert/ambulating Respiratory: normal respiratory effort Gastrointestinal (Abdomen): Inspection/Auscultation: + abdominal surgical incision (c/d/i with dermabond overtop); abdomen not distended Percussion/Palpation: abdomen soft; abdomen nontender Results & Data Vital Signs (Past 12 Hours) Vital Signs Temp Pulse Resp BP Pulse Ox 04/13/19 08:24 37.0 C 74 18 138/77 95 04/12/19 23:24 37.0 C 77 16 147/73 H 97 PG Care Time/CCT Total # of Minutes Spent Total Time Spent with Patient: Total time spent is greater than 50% in coordination of care (as documented) at patient's floor/unit and/or counseling patient:
[2019-04-13] MEDS ORDERED: LEVOFLOXACIN/D5W 250 MG/50 ML BAG IV SCH (10:00)
--- NOTE | 2019-04-15 10:04 | Discharge Summary ---
Date of Service April 15, 2019 Admission HPI Per Admitting Provider 73-year-old female presented to the emergency department with 2-day history of abdominal pain. Pain started Saturday. She had pancakes and baca for breakfast. She has had similar but not as severe pain in the past. The pain typically resolved on its own. She also had vomiting could not keep anything down. Her pain is diffuse but seems to be more centered in epigastrium. No prior abdominal surgeries. She is not on any blood thinners and is otherwise healthy except for some hypothyroidism. Principal Diagnosis acute cholecystitis Discharge Exam awake/alert Respiratory normal respiratory effort Gastrointestinal (Abdomen) Inspection/Auscultation: + abdominal surgical incision (c/d/i with dermabond overtop); abdomen not distended Percussion/Palpation: abdomen soft; abdomen nontender Discharge Data Allergies Allergy/AdvReac Type Severity Reaction Status Date / Time No Known Allergies Allergy Unverified 04/10/19 14:58 Consultations 04/10/19 17:41 Consult General Surgery Stat 04/11/19 11:44 Consult Infectious Diseases Routine 04/13/19 10:18 Burn CD for patient Routine Procedures Performed Operation Date: 04/11/19 08:30 Actual Procedures p Laparoscopic Cholecystectomy - Malik England, , FACS Ordered Studies 04/10/19 15:14 CT abd pelvis IV con only Stat 04/11/19 07:00 [place] cholangiogram OR Routine Hospital Course (1) Cholecystitis: This is a 73yF who presented to the [facility] ED on the evening of 04/10/19 with abdominal pain, fevers, nausea/vomiting. Workup in the ED included a CT abd/pelvis that revealed findings concerning for acute cholecystitis. Tbili 0.9 and other LFT's unremarkable. The patient was made NPO with IVF and started on IV zosyn. On the AM of 04/11 the patient went to the OR with Dr. England for a laparoscopic cholecystectomy with intraoperative cholangiogram. Patient tolerated the procedure well, see operative report for full details. Post operatively the patient's diet was advanced as tolerated to regular. Pain was well managed, she was voiding spontaneously, and ambulating the halls without issues. Blood cultures from the ED, taken because she was febrile, returned as positive for serratia marcesens, therefore infectious disease was consulted. Her cultures were sensitive to Levaquin and on POD#1 she was switched from IV zosyn to IV levaquin for 24 hours.On POD#2 (04/13) the patient was deemed stable for discharge to home. She was sent out on 14 days po levaquin to complete a full course for her bacteremia. Subsequent blood cultures returned negative. She was instructed to follow up in clinic within 1-2 weeks for a post op check. Total Time Total Time Spent Total Time Spent (In Minutes): 15 Discharge Plan Discharge Items Patient Disposition: Home - Self-Care Reason For Visit: CHOLECYSTITIS Discharge Diagnosis: laparoscopic cholecystectomy Activity: Per Instructions section Lifting: No more than 10 pounds Bathing Comment: you may shower starting today; no soaking in tubs for 2 weeks Exercise/Sports: Wait until after follow-up appointment Exercise Comment: light activity for 3 weeks Driving/Machine Use: please do not resume driving while taking narcotics for pain Non-emergency contact: Surgeon Call non-emergency contact if: you have any medication questions, your symptoms worsen, your pain is not controlled, your pain is worsening, your pain is unusual for you, you have a fever, your temperature is above 101.5, your wound has increased redness, your wound has increased drainage and your wound pain has increased Follow-up/Referrals: Malik England DO, FACS [Physician] - (Please call to schedule follow up in clinic within 2 weeks. You may call the office sooner if you have any questions/concerns.) Antonia Harrell MD [Primary Care Provider] - Diet: Regular Addtl Attending Provider Instructions: Please complete your full course of antibiotics Pending Studies at Discharge: No Stand-Alone Forms: My [facility] Medications and DC Order Prescriptions: New oxycodone-acetaminophen [Percocet] 5-325 mg tablet 1 - 2 tab PO .every 4-6 hours PRN (Reason: pain, for initial therapy) Qty: 15 RF: 0 levofloxacin [Levaquin] 500 mg tablet 500 mg PO DAILY 14 Days Qty: 14 RF: 0 Continued levothyroxine [Synthroid] 25 mcg tablet 25 mcg PO DAILY RF: 0 ibuprofen 200 mg Tablet 800 mg PO DAILY RF: 0 Discharge Orders: Discharge Order (Routine); Ordered 04/13/19 Ordered By: Angela Naranjo/Other Patient Handouts: Levofloxacin Oral tablet Admission Data Admit Date/Time: 04/10/19 18:36 Attending Provider: Malik England Admit Provider: Malik England Primary Care Provider: Antonia Harrell Other Providers: Toi Mcgovern ; Malik England Other Interventions: Discharge Summary Assessment (RN) Last Done: 04/13/19 10:30 DC Date/Time DO NOT enter until pt leaves facility: 04/13/19 11:39
== END 2019-04-13 11:39 | disposition home or self-care (01) | DRG 854 ==
LOC: ED 14:28 → 3W 18:36

== ENCOUNTER 2020-04-15 09:50 | Inpatient (IN) ==
[2020-04-15] MEDS ORDERED: metroNIDAZOLE 500 MG/100 ML BAG IV STA (10:13)
[2020-04-15] MEDS ORDERED: CEFEPIME 2,000 MG/20 ML VIAL IV STA (10:13)
[2020-04-15] MEDS ORDERED: SODIUM CHLORIDE 0.9% 1000ML 1,000 ML IV SCH ×2 (10:15→11:14)
--- NOTE | 2020-04-15 10:16 | Emergency Department Note ---
History of Present Illness General Chief complaint: Infection Stated complaint: BLOOD INFECTION Time Seen by Provider: 04/15/20 09:58 History of Present Illness This is a 74-year-old female that presents to the emergency department via private vehicle for evaluation of positive blood cultures resulting from blood drawn yesterday where she was evaluated for chief complaint then of "throwing up for 2 days, fever". The patient returned from [place] this past Saturday and she felt okay but then on Saturday evening developed a fever followed by vomiting. At that time her T-max was 101 F orally. Since then she has had chills and nausea with vomiting and was seen here by myself in the emergency department. She had fluids and a work-up at that time and was pending a COVID test. We then called her with positive blood cultures this morning and she came in to be evaluated. She notes that since discharge she now feels a bit more short of breath and overall fatigue. There has been no more vomiting. She notes that she feels very dry and thirsty despite drinking water this morning. She denies any pain at this time, rather noting that she does feels fatigued. Home Medications Home Medications Medication Instructions Recorded Confirmed Type levothyroxine [Synthroid] 25 mcg PO QAM 04/10/19 04/15/20 History ondansetron 4 mg PO Q8H PRN #10 tab 04/14/20 04/15/20 Rx acetaminophen [Tylenol] 325 mg PO QID PRN 04/15/20 04/15/20 History Allergies Allergy/AdvReac Type Severity Reaction Status Date / Time No Known Allergies Allergy Unverified 04/15/20 10:37 Past Med/Surg History Medical History (Updated 04/15/20 @ 14:32 by Charly Burden PA-C) CKD (chronic kidney disease), stage III Hypothyroidism Surgical History History of cholecystectomy 04/11/19 - lap cholecystectomy. Dr England at [facility] Family History (Updated 04/15/20 @ 11:35 by June Guevara PA-C) Other Asthma Diabetes Social History Smoking Status: Never smoker Hx Alcohol Use: No Hx Substance Use: No Preferred Language: Polish Communication Ability: Effective Insurance Collector Required: No Beliefs That Will Affect Care: None marital status: Current Living Situation: Spouse current occupational status: retired Other Information That Helps Us Care for You: No Feels Safe at Home: Yes Safety Concerns: Feels Safe At This Time Assistive Devices: Glasses and Hearing Aid - Bilateral Review of Systems A total of 10 systems reviewed and were otherwise negative Physical Exam Vital Signs Vital Signs - 24 hr 04/15/20 10:14 Temperature 37.6 C H Temperature Source Oral Pulse Rate 101 H Pulse Rhythm Regular Pulse Strength Normal Respiratory Rate 20 Respiratory Effort / Characteristics Non-Labored Spontaneous Respiratory Depth Normal Blood Pressure 138/71 Blood Pressure Mean 93 Blood Pressure Position Right Lateral Pulse Oximetry 98 Oxygen Delivery Method Room Air Sepsis Recent Fever Within 48 Hours No Sepsis New/Unexplained Change in Mental Status N/A Sepsis Action Taken by Nursing No Action Required VITAL SIGNS - Vital signs and nursing notes were reviewed. Mildly tachycardic, otherwise stable. GENERAL - 74-year-old female appearing her stated age who is in no acute distress but appears fatigued/tired and is mildly dyspneic. Communicates well with provider and answers questions appropriately. SKIN - Without rashes. No meningeal or petechial rash. HEAD - NC/AT. EYES - PERRL with EOMI bilaterally. Sclera anicteric. Palpebral conjunctiva pink and moist with no injection noted. EARS - No deformities of external structures noted on gross examination bilaterally. No pain elicited with palpation of the tragus bilaterally. External auditory canals without discharge or otorrhea. Tympanic membranes pearly gomez without retraction or bulging. No fluid or purulent material visualized behind the TM. Handle of malleus, umbo, cone of light, pars tensa/flaccid all easily visualized. NOSE - Midline and without cyanosis. No epistaxis or purulent drainage noted. MOUTH/OROPHARYNX - Without perioral cyanosis. Buccal mucosa pink and moist and without leukoplakia. Tongue midline with equal elevation of palate bilaterally. The teeth are overall in poor repair however there is no evidence of abscess. NECK - Neck with FROM. Supple to palpation. No lymphadenopathy noted. No nuchal rigidity. LUNGS - Chest wall symmetric without accessory muscle use, intercostals retractions, or central cyanosis. Normal vesicular breath sounds CTA B/L. No wheezes, rales, or rhonchi appreciated. CARDIAC - RRR with S1/S2. No murmur, rubs, or gallops appreciated. ABDOMEN - Abdominal contour normal without pulsations or visible masses. BS normoactive all four quadrants. No tenderness, palpable masses, hepatosplenomegaly, or ascites noted. EXTREMITIES - No clubbing or peripheral cyanosis. No pretibial edema present. +5/5 strength noted in UE/LE bilaterally. NEUROLOGIC - Cranial nerves II through XII grossly intact. Sensory intact to light touch throughout. PSYCH - A&O, and cooperates fully with examiner. Pt is very pleasant and interacts well with examiner. Course Administered Medications Discontinued Medications Sodium Chloride (Nss 1000ml) 250 mls @ 999 mls/hr IV .Q16M GEENA Stop: 04/15/20 13:12 Last Infusion: 04/15/20 14:06 Dose: 0 mls/hr Documented by: [id number] Admin: 04/15/20 13:38 Dose: 999 mls/hr Documented by: [id number] Infusion: 04/15/20 13:38 Dose: 999 mls/hr Documented by: [id number] Admin: 04/15/20 13:38 Dose: 999 mls/hr Documented by: [id number] Infusion: 04/15/20 13:38 Dose: 999 mls/hr Documented by: [id number] Admin: 04/15/20 13:38 Dose: 999 mls/hr Documented by: [id number] Infusion: 04/15/20 13:38 Dose: 999 mls/hr Documented by: [id number] Admin: 04/15/20 13:36 Dose: 999 mls/hr Documented by: [id number] Sodium Chloride (Nss 1000ml) 1,000 mls @ 999 mls/hr IV .Q1H1M GEENA Stop: 04/15/20 11:13 Last Infusion: 04/15/20 13:20 Dose: 0 mls/hr Documented by: [id number] Admin: 04/15/20 10:45 Dose: 999 mls/hr Documented by: [id number] Sodium Chloride (Nss 1000ml) 1,000 mls @ 999 mls/hr IV .Q1H1M GEENA Stop: 04/15/20 12:13 Last Infusion: 04/15/20 13:20 Dose: 0 mls/hr Documented by: [id number] Admin: 04/15/20 10:45 Dose: 999 mls/hr Documented by: [id number] Cefepime HCl (Maxipime) 2,000 mg in 20 mls @ 5 mls/min IV NOW STA; Protocol Stop: 04/15/20 10:16 Last Admin: 04/15/20 10:45 Dose: 5 mls/min Documented by: [id number] Metronidazole (Flagyl) 500 mg in 100 mls @ 100 mls/hr IV NOW STA Stop: 04/15/20 11:12 Last Infusion: 04/15/20 13:20 Dose: 0 mls/hr Documented by: [id number] Admin: 04/15/20 10:45 Dose: 100 mls/hr Documented by: [id number] Medical Decision Making Laboratory Data Result diagrams: 04/15/20 10:40 04/15/20 10:40 Lab Results 04/15/20 04/15/20 04/15/20 Range/Units 10:40 10:40 10:40 WBC 7.85 (4.8-10.8) K/uL RBC 3.65 L (4.2-5.4) M/uL Hgb 10.5 L (12.0-16.0) g/dL Hct 31.3 L (37-47) % MCV 85.8 (80-100) fL MCH 28.8 (25-34) pg MCHC 33.5 (32-36) g/dL RDW Std Deviation 45.2 (36.4-46.3) fL RDW Coeff of Marlon 14.3 (11.5-14.5) % Plt Count 108 L (130-400) K/uL MPV 11.3 H (7.4-10.4) fL Immature Gran % (Auto) 0.3 % Neut % (Auto) 87.7 % Lymph % (Auto) 5.2 % Cross % (Auto) 6.8 % Eos % (Auto) 0.0 % Baso % (Auto) 0.0 % Neut # (Auto) 6.89 H (1.4-6.5) K/uL Lymph # (Auto) 0.41 L (1.2-3.4) K/uL Cross # (Auto) 0.53 (0.11-0.59) K/uL Eos # (Auto) 0.00 (0-0.5) K/uL Baso # (Auto) 0.00 (0-0.2) K/uL Immature Gran # (Auto) 0.02 (0.00-0.02) K/uL PT 10.9 (9.0-12.0) Seconds INR 1.0 (0.9-1.1) APTT 28.8 (21.0-31.0) Seconds PTT Ratio 1.0 Sodium 136 (136-145) mmol/L Potassium 3.3 L (3.5-5.1) mmol/L Chloride 103 (98-107) mmol/L Carbon Dioxide 24 (21-32) mmol/L Anion Gap 9.0 (3-11) BUN 25 H (7-18) mg/dl Creatinine 1.20 (0.6-1.2) mg/dl Est Cr Clr Drug Dosing 40.2 ml/min Est GFR ( Amer) 50.8 Est GFR (Non-Af Amer) 43.9 BUN/Creatinine Ratio 20.5 H (10-20) Glucose 177 H (70-99) mg/dl Lactate (0.4-2.0) mmol/L Calcium 8.5 (8.5-10.1) mg/dl Magnesium 2.1 (1.8-2.4) mg/dl Total Bilirubin 1.0 (0.2-1) mg/dl AST 34 (15-37) U/L ALT 51 (12-78) U/L Alkaline Phosphatase 124 H (45-117) U/L Total Protein 6.5 (6.4-8.2) gm/dl Albumin 2.5 L (3.4-5.0) gm/dl Globulin 4.0 (2.5-4.0) gm/dl Albumin/Globulin Ratio 0.6 L (0.9-2) 04/15/20 Range/Units 10:40 WBC (4.8-10.8) K/uL RBC (4.2-5.4) M/uL Hgb (12.0-16.0) g/dL Hct (37-47) % MCV (80-100) fL MCH (25-34) pg MCHC (32-36) g/dL RDW Std Deviation (36.4-46.3) fL RDW Coeff of Marlon (11.5-14.5) % Plt Count (130-400) K/uL MPV (7.4-10.4) fL Immature Gran % (Auto) % Neut % (Auto) % Lymph % (Auto) % Cross % (Auto) % Eos % (Auto) % Baso % (Auto) % Neut # (Auto) (1.4-6.5) K/uL Lymph # (Auto) (1.2-3.4) K/uL Cross # (Auto) (0.11-0.59) K/uL Eos # (Auto) (0-0.5) K/uL Baso # (Auto) (0-0.2) K/uL Immature Gran # (Auto) (0.00-0.02) K/uL PT (9.0-12.0) Seconds INR (0.9-1.1) APTT (21.0-31.0) Seconds PTT Ratio Sodium (136-145) mmol/L Potassium (3.5-5.1) mmol/L Chloride (98-107) mmol/L Carbon Dioxide (21-32) mmol/L Anion Gap (3-11) BUN (7-18) mg/dl Creatinine (0.6-1.2) mg/dl Est Cr Clr Drug Dosing ml/min Est GFR ( Amer) Est GFR (Non-Af Amer) BUN/Creatinine Ratio (10-20) Glucose (70-99) mg/dl Lactate 1.4 (0.4-2.0) mmol/L Calcium (8.5-10.1) mg/dl Magnesium (1.8-2.4) mg/dl Total Bilirubin (0.2-1) mg/dl AST (15-37) U/L ALT (12-78) U/L Alkaline Phosphatase (45-117) U/L Total Protein (6.4-8.2) gm/dl Albumin (3.4-5.0) gm/dl Globulin (2.5-4.0) gm/dl Albumin/Globulin Ratio (0.9-2) Imaging Data Radiologist's Impression: XR chest 1V portable HISTORY: SEPSIS COMPARISON: Chest 04/14/2020. FINDINGS: The lungs are clear. Cardiac silhouette is normal in size. No pleural effusions. No pneumothorax. IMPRESSION: No acute process. ACT 112: Negative or not required by law. Electronically signed by: Savage Wakefield M.D. 04/15/2020 10:48 AM MDM Narrative Patient was seen and evaluated as above in room C4. Review was performed of nursing notes and vital signs. I did review pertinent previous visits and patient history. After obtaining a thorough history and physical examination the above work up was performed. I personally took care of this patient yesterday and ordered blood cultures which resulted today and were both positive. This was for gram-negative bacilli. I did have our case management team checked the [employer] system. The cover test was negative. At this time the patient is bacteremic, and will initiate sepsis order set given presentation here today. This will require inpatient management for further work-up. Case discussed with the attending physician as well as the hospitalist. Please refer to further documentation regarding her stay. Case was discussed with the attending physician. The sepsis order set was added and she was given empiric cefepime/Flagyl for coverage after discussing this with the clinical pharmacist. Weight-based fluids were ordered. No emergent leukocytosis. Hemoglobin is 10.5. Mild hypokalemia at 3.3. Urinalysis does reveal possible UTI however this certainly is a contaminated sample. Continuous cardiac monitoring ordered and reveals sinus rhythm at a rate of 97 bpm. EKG was obtained and reveals normal sinus rhythm at rate of 97 bpm. No ectopy or ischemic change. No significant change compared to yesterday's EKG. QTc 427. No ST elevation. GCS: 15 In the evaluation and treatment of this patient the following differential diagnoses were entertained: Bacteremia, sepsis, UTI, pneumonia, [place], PE, pericarditis, meningitis, encephalitis, postoperative infection, among others Impression & Plan Gram-negative bacteremia Discharge Plan Visit Data Chief Complaint: Infection Stated Complaint: BLOOD INFECTION ED Provider: Derrick Suárez ED Midlevel Provider: Charly Burden Discharge Problem: Gram-negative bacteremia Patient Disposition: Admitted As Inpatient Condition: Good Discharge Instructions Interventions: ED Discharge Assessment Last Done: 04/15/20 11:21
--- NOTE | 2020-04-15 10:49 | XRay Report ---
XR chest 1V portable HISTORY: SEPSIS COMPARISON: Chest 04/14/2020. FINDINGS: The lungs are clear. Cardiac silhouette is normal in size. No pleural effusions. No pneumot horax. IMPRESSION: No acute process. ACT 112: Negative or not required by law. Electronically signed by: Savage Wakefield M.D. 04/15/2020 10:48 AM
[2020-04-15 10:58] LABS: Hematocrit (blood only) 31.3 % (37-47); Hemoglobin 10.5 g/dL (12.0-16.0); Immature Granulocytes # (auto) 0.02 K/uL (0.00-0.02); Immature Granulocytes % (auto) 0.3 %; Lymphocytes # (auto) 0.41 K/uL (1.2-3.4); Lymphocytes % (auto) 5.2 %; Mean Corpuscular Hemoglobin 28.8 pg (25-34); Mean Corpuscular Hgb Conc 33.5 g/dL (32-36); Mean Corpuscular Volume 85.8 fL (80-100); Mean Platelet Volume 11.3 fL (7.4-10.4); Monocytes # (auto) 0.53 K/uL (0.11-0.59); Monocytes % (auto) 6.8 %; Neutrophils # (auto) 6.89 K/uL (1.4-6.5); Neutrophils % (auto) 87.7 %; Platelet Count 108 K/uL (130-400); RDW Coefficient of Variation 14.3 % (11.5-14.5); RDW Standard Deviation 45.2 fL (36.4-46.3); Red Blood Count 3.65 M/uL (4.2-5.4); White Blood Count 7.85 K/uL (4.8-10.8)
[2020-04-15 11:08] LABS: Partial Thromboplastin Time 28.8 Seconds (21.0-31.0); Prothrombin Time 10.9 Seconds (9.0-12.0)
[2020-04-15 11:14] LABS: Albumin Level 2.5 gm/dl (3.4-5.0); BUN Creatinine Ratio 20.5 (10-20); Calcium 8.5 mg/dl (8.5-10.1); Creatinine Clr Calc Pharmacy 40.2 ml/min; Est GFR (African American) 50.8; Est GFR (Non-African American) 43.9; Magnesium 2.1 mg/dl (1.8-2.4); Potassium 3.3 mmol/L (3.5-5.1)
[2020-04-15 11:17] LABS: Albumin Globulin Ratio 0.6 (0.9-2); Total Protein 6.5 gm/dl (6.4-8.2)
--- NOTE | 2020-04-15 11:28 | History & Physical Report ---
Date of Service April 15, 2020 Assessment & Plan (1) Gram-negative bacteremia: This is a 74-year-old female with PMH of hypothyroidism, CKD III and history of cholecystectomy last year who presents to ED after being called back with positive blood cultures from yesterday's visit. -Preliminary blood cultures from 2 sites on 04/14 growing gram-negative bacilli -Temperature elevated at 37.6 C, no leukocytosis, lactic acid within normal limits -COVID negative as of yesterday, chest x-ray without acute abnormality, UA pending -CT abdomen pelvis with contrast from 04/14 with minimal stranding within the cholecystectomy bed, scarring vs. mild inflammation - history of cholecystectomy in Mar 2019 -Started empirically on cefepime and Flagyl in ED. Plan to continue. Follow blood cultures. Continue IV fluids (2) Hypothyroidism: Continue levothyroxine (3) CKD (chronic kidney disease), stage III: Kidney function at baseline. Continue to monitor daily BMP DVT Ppx: SQ heparin Code status: FULL PCP: Julio Cesar Dispo: Admitted to PCU. Plan to return home once medically stable. Patient seen in collaboration with Dr. Garcia. Please see addendum. History of Present Illness Chief Complaint: Positive blood cultures, called back to ER Primary Care Provider: Antonia Harrell MD This is a 74-year-old female with PMH of hypothyroidism, CKD III and history of cholecystectomy last year who presents to ED after being called back with positive blood cultures from yesterday's visit. Patient was recently in [place] and returned this past Saturday. By Saturday, patient developed fever with Tmax of 101 F orally with nausea and vomiting. Had outpatient COVID test that returned negative yesterday. Was seen in ED yesterday and received IV fluids and blood cultures obtained. Also had CT abdomen pelvis at that time that showed minimal stranding within the cholecystectomy bed, decreased since CT of April 18, 2019. Scarring is favored. Mild inflammation could appear similar. No operative bed fluid collection. Preliminary blood cultures resulted today from 2 sites growing gram-negative bacilli. Patient feels more short of breath and fatigued since yesterday with chills. Temperature 37.6 C in ED. Denies any lightheadedness, cough, nausea, vomiting or abdominal pain. Denies any chest pain or palpitations. No dysuria, diarrhea or constipation. Does also endorse tooth ache of left upper molar for the past week. Allergies Allergy/AdvReac Type Severity Reaction Status Date / Time No Known Allergies Allergy Unverified 04/15/20 10:37 Home Medications Home Medications Medication Instructions Recorded Confirmed Type levothyroxine [Synthroid] 25 mcg PO QAM 04/10/19 04/15/20 History ondansetron 4 mg PO Q8H PRN #10 tab 04/14/20 04/15/20 Rx acetaminophen [Tylenol] 325 mg PO QID PRN 04/15/20 04/15/20 History Past Med/Surg History Medical History (Updated 04/15/20 @ 11:36 by June Guevara PA-C) CKD (chronic kidney disease), stage III Hypothyroidism Surgical History History of cholecystectomy 04/11/19 - lap cholecystectomy. Dr England at [facility] Family History (Updated 04/15/20 @ 11:35 by June Guevara PA-C) Other Asthma Diabetes Social History Smoking Status: Never smoker Hx Alcohol Use: No Hx Substance Use: No Preferred Language: Arabic Communication Ability: Effective Boiler Room Operator Required: No Beliefs That Will Affect Care: None marital status: Current Living Situation: Spouse current occupational status: retired Feels Safe at Home: Yes Assistive Devices: Glasses Review of Systems Review of Systems: At least ten systems reviewed and negative except as noted in the HPI. Physical Exam Physical Exam: General Appearance: WD/WN, vitals as above, appears acutely ill, sitting up in bed, pleasant, conversing easily Head: normocephalic, atraumatic Eyes: normal inspection, PERRL, conjunctivae normal, anicteric sclerae ENT: external ear and nose normal, oropharynx normal. + Poor dentition Neck: normal visual inspection, trachea midline, no thyromegaly Respiratory: normal respiratory effort, lungs clear to auscultation, no wheeze, rales, rhonchi. No accessory muscle use Cardiovascular: Tachycardic, regular, rhythm, no murmur, normal peripheral pulses, no BLE edema. Vessels: no JVD Chest: normal inspection of chest Abdomen/GI: normal bowel sounds, soft, nontender, no hepatosplenomegaly Extremities/Musculoskeletal: no cyanosis or clubbing, extremities motor strength 5/5 Neurologic: PERRL, EOMI, accommodation nl, no face palsy, no dysarthria, CN's II-XI intact bilaterally and moves all extremities Psychiatric: A+Ox3, euthymic affect Skin: no rashes, normal color, warm/dry Results & Data Results & Data ([facility]) Vital Signs (Past 12 Hours) Vital Signs Temp Pulse Resp BP Pulse Ox 04/15/20 10:14 37.6 C H 101 H 20 138/71 98 Laboratory Results Short CBC 04/15/20 Range/Units 10:40 WBC 7.85 (4.8-10.8) K/uL Hgb 10.5 L (12.0-16.0) g/dL Hct 31.3 L (37-47) % Plt Count 108 L (130-400) K/uL BMP 04/15/20 10:40 Sodium 136 Potassium 3.3 L Chloride 103 Carbon Dioxide 24 BUN 25 H Creatinine 1.20 Glucose 177 H Calcium 8.5 Liver Function 04/15/20 Range/Units 10:40 Total Bilirubin 1.0 (0.2-1) mg/dl AST 34 (15-37) U/L ALT 51 (12-78) U/L Alkaline Phosphatase 124 H (45-117) U/L Albumin 2.5 L (3.4-5.0) gm/dl Diagnostic Findings CXR: IMPRESSION: No acute process. Code Status & VTE Plan VTE Prophylaxis Plan VTE Prophylaxis will be ordered: Yes Supervising Physician Co-Signing Physician Notes I, Dr. Jose Garcia, have seen and examined the patient Gita Vega and also discussed the plans with physician classroom assistant On Physical Exam General: talking in full sentences and answers all questions appropriately but appears fatigued and sometimes needing more time to concentrate when talking Mouth: multiple teeth fillings Heart: regular rate Lung: no crackles, no wheezing Abdomen: soft, nontender Neuro/Extremities: moves all extremities. Assessment and Plan -that this is a patient with around 1 week of left upper tooth pain, then traveled out of state, and after the travels, patient with vomiting and fever. Patient had outpatient COVID-19 screening test on 04/13/2020 that is negative. patient initially seen in the ED on 04/14/2020 and after supportive care she was discharged. The blood cultures from 04/14/2020 returned as positive for gram negative bacteremia and patient returns to the ED on 04/15/2020 for hospital admission -continue IV antibiotics as IV cefepime, IV metronidazole, IV fluids, prn anti- emetics. -patient has history of cholecystectomy 1 year ago in April 2019. there current abdominal CT does not identify sources of infection but given then gram negative blood cultures, this is why IV metronidazole being continued with the Cefepime for anaerobic coverage -patient has outpatient dental evaluation in 2 weeks. at this time will treat patient to clear bacteremia. give Magic mouthwash to relieve left upper tooth pain. 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 -Full Code Status -agree with other assessment and plans as documented by physician classroom assistant in regards to kidney function and thyroid function -My colleague Dr. Barrera will be the hospitalist attending starting on 04/16/2020
[2020-04-15] MEDS ORDERED: POLYETHYLENE (MIRALAX) 17 GM PACK PO PRN (12:59)
[2020-04-15] MEDS ORDERED: ACETAMINOPHEN 325 MG TAB PO PRN (12:59)
[2020-04-15] MEDS: SODIUM CHLORIDE 0.9% 1000ML 250 ML IV SCH ×2 (13:36→13:38)
[2020-04-15 13:52] LABS: Appearance Urine Turbid (Clear); Bacteria Urine Automated Negative (Negative); Blood Urine 3+ (Negative); Color Urine Dark Yellow; Epithelial Cell Urine Auto >30 /lpf (0-5); Glucose Urine UA Negative (Negative); Ketones Urine Trace (Negative); Leukocyte Esterase Urine 2+ (Negative); Nitrite Urine Negative (Negative); Protein Urine 2+ (Negative); Specific Gravity Urine 1.028 (1.000-1.030); Urobilinogen Urine Negative (Negative)
[2020-04-15 14:11] LABS: Bilirubin Urine Negative (Negative); Ictotest Urine Negative (Negative)
[2020-04-15 14:18] LABS: Mucus Urine Present (None Prsent)
[2020-04-15 14:21] LABS: Amorphous Sediment Urine Present (None Prsent)
[2020-04-15] MEDS: HEPARIN SOD 5,000 UNIT/0.5 ML VIAL SQ SCH ×2 (14:33→20:20)
[2020-04-15] MEDS: metroNIDAZOLE 500 MG/100 ML BAG IV SCH (20:18)
--- NOTE | 2020-04-15 22:54 | Electrocardiogram Report ---
Test Reason : Blood Pressure : / mmHG Vent. Rate : 097 BPM Atrial Rate : 097 BPM P-R Int : 134 ms QRS Dur : 080 ms QT Int : 334 ms P-R-T Axes : 037 031 034 degrees QTc Int : 424 ms Normal sinus rhythm Normal ECG When compared with ECG of 14-APR-2020 09:26, No significant change was found Confirmed by Yuan Floyd ([id number]) on 04/15/2020 10:53:51 PM Referred By: Confirmed By:Yuan Floyd
[2020-04-15] MEDS: CEFEPIME 2,000 MG in SYRINGE 0 ML IV SCH (23:19)
[2020-04-15] MEDS: ONDANSETRON INJ 2 MG/ML 2 ML VIAL IV PRN (23:27)
[2020-04-16] MEDS: metroNIDAZOLE 500 MG/100 ML BAG IV SCH ×3 (03:14→20:06)
[2020-04-16] MEDS: LEVOTHYROXINE SODIUM 25 MCG TABLET PO SCH (06:11)
[2020-04-16 06:20] LABS: Basophils # (auto) 0.01 K/uL (0-0.2); Basophils % (auto) 0.1 %; Eosinophils # (auto) 0.02 K/uL (0-0.5); Eosinophils % (auto) 0.3 %; Hematocrit (blood only) 28.7 % (37-47); Hemoglobin 9.6 g/dL (12.0-16.0); Immature Granulocytes # (auto) 0.01 K/uL (0.00-0.02); Immature Granulocytes % (auto) 0.1 %; Lymphocytes # (auto) 0.89 K/uL (1.2-3.4); Lymphocytes % (auto) 12.1 %; Mean Corpuscular Hemoglobin 28.9 pg (25-34); Mean Corpuscular Hgb Conc 33.4 g/dL (32-36); Mean Corpuscular Volume 86.4 fL (80-100); Mean Platelet Volume 11.3 fL (7.4-10.4); Monocytes # (auto) 1.14 K/uL (0.11-0.59); Monocytes % (auto) 15.6 %; Neutrophils # (auto) 5.26 K/uL (1.4-6.5); Neutrophils % (auto) 71.8 %; Platelet Count 118 K/uL (130-400); RDW Coefficient of Variation 14.7 % (11.5-14.5); Red Blood Count 3.32 M/uL (4.2-5.4); White Blood Count 7.33 K/uL (4.8-10.8)
[2020-04-16] MEDS: HEPARIN SOD 5,000 UNIT/0.5 ML VIAL SQ SCH ×3 (06:40→21:13)
[2020-04-16 06:53] LABS: Albumin Level 1.9 gm/dl (3.4-5.0); BUN Creatinine Ratio 27.4 (10-20); Calcium 8.4 mg/dl (8.5-10.1); Creatinine Clr Calc Pharmacy 52.4 ml/min; Est GFR (African American) 69.2; Est GFR (Non-African American) 59.7; Potassium 3.1 mmol/L (3.5-5.1)
[2020-04-16 06:56] LABS: Albumin Globulin Ratio 0.5 (0.9-2); Bilirubin,Total 0.6 mg/dl (0.2-1); Globulin 3.6 gm/dl (2.5-4.0); Total Protein 5.5 gm/dl (6.4-8.2)
[2020-04-16] MEDS ORDERED: POTASSIUM PHOS 3 MMOL/1 ML INFUSION IV STA (07:54)
[2020-04-16] MEDS ORDERED: POTASSIUM PHOSPHATE 40 MMOL in SODIUM CHLORIDE 0.9% 1000ML 1,000 ML IV ONE (08:00)
[2020-04-16] MEDS: CEFEPIME 2,000 MG in SYRINGE 0 ML IV SCH ×2 (11:29→21:13)
--- NOTE | 2020-04-16 11:57 | Hospitalist Progress Note ---
Date of Service April 16, 2020 Assessment & Plan (1) Gram-negative bacteremia: 74-year-old female with PMH of hypothyroidism, CKD III and history of cholecystectomy last year who presents to ED after being called back with positive blood cultures from prior visit -Preliminary blood cultures from 2 sites on 04/14 growing gram-negative bacilli. Repeat blood culture on admission still growing GNR -On admission, temperature was 37.6 C, no leukocytosis, lactic acid within normal limits -COVID negative from 04/13/20 -chest x-ray without acute abnormality, UA pending -CT abdomen pelvis with contrast from 04/14 with minimal stranding within the cholecystectomy bed, scarring vs. mild inflammation - history of cholecystectomy in Mar 2019 -No significant finding on abdominal exam Patient has GNR bacteremia with unclear source as of now -Continue cefepime and Flagyl for now -UA on admission has leuk esterase, WBC 10-30 -Follow up urine cultures and blood culture speciation/sensitivities (2) Hypothyroidism: Continue levothyroxine (3) CKD (chronic kidney disease), stage III: Kidney function at baseline. Continue to monitor daily BMP DVT Ppx: SQ heparin Code status: FULL PCP: Julio Cesar Discussed with Daughter, Clari who was on the phone about plan of care Admission and Anticipated Discharge Date Admission Date: April 15, 2020 Subjective Patient seen and examined. Reports malaise, fatigue. Stated she had headache earlier in the morning Reports occasional diaphoresis. Denied any chest pain, SOB, MERA Denied any cough, chills Denied any dysuria, freq, urgency, hematuria Denied any dizziness Denied any nausea, vomiting,abd pain, diarrhea Reports she has a tooth ache only when she chews sometimes. No jaw swelling/pain/discharge Physical Exam Constitutional: well nourished and + well hydrated; no acute distress Eyes: PERRL, conjunctivae normal, anicteric sclerae ENMT: Poor dental hygiene. No obvious drainage. No tenderness/swelling on palpation of gum and jaw Respiratory: normal respiratory effort, lungs clear to auscultation Cardiovascular: Rate/Rhythm: regular rate and regular rhythm Heart Sounds: normal S1 and normal S2 Extremities: no pedal edema Gastrointestinal (Abdomen): normal bowel sounds, soft, nontender, no hep atosplenomegaly Musculoskeletal: no cyanosis or clubbing, extremities motor strength 5/5 Neurologic: PERRL, EOMI, accommodation nl, no face palsy, no dysarthria Psychiatric: A+Ox3, euthymic affect Results & Data Results & Data ([facility]) Vital Signs (Past 12 Hours) Vital Signs Temp Pulse Pulse Resp BP Pulse Ox 04/16/20 07:42 65 04/16/20 07:05 36.5 C 61 18 97/60 L 97 04/16/20 05:15 37.1 C 66 18 99/60 L 98 Laboratory Results Laboratory Results - last 24 hr 04/16/20 04/16/20 05:51 05:51 WBC 7.33 RBC 3.32 L Hgb 9.6 L Hct 28.7 L MCV 86.4 MCH 28.9 MCHC 33.4 RDW Std Deviation 47.0 H RDW Coeff of Marlon 14.7 H Plt Count 118 L MPV 11.3 H Immature Gran % (Auto) 0.1 Neut % (Auto) 71.8 Lymph % (Auto) 12.1 [place] % (Auto) 15.6 Eos % (Auto) 0.3 Baso % (Auto) 0.1 Neut # (Auto) 5.26 Lymph # (Auto) 0.89 L [place] # (Auto) 1.14 H Eos # (Auto) 0.02 Baso # (Auto) 0.01 Immature Gran # (Auto) 0.01 Sodium 140 Potassium 3.1 L Chloride 110 H Carbon Dioxide 23 Anion Gap 7.0 BUN 25 H Creatinine 0.93 Est Cr Clr Drug Dosing 52.4 Est GFR ( Amer) 69.2 Est GFR (Non-Af Amer) 59.7 BUN/Creatinine Ratio 27.4 H Glucose 105 H Calcium 8.4 L Total Bilirubin 0.6 AST 25 ALT 37 Alkaline Phosphatase 102 Total Protein 5.5 L Albumin 1.9 L Globulin 3.6 Albumin/Globulin Ratio 0.5 L
[2020-04-17] MEDS: metroNIDAZOLE 500 MG/100 ML BAG IV SCH ×3 (03:00→20:16)
[2020-04-17] MEDS: HEPARIN SOD 5,000 UNIT/0.5 ML VIAL SQ SCH ×3 (05:42→23:05)
[2020-04-17] MEDS: LEVOTHYROXINE SODIUM 25 MCG TABLET PO SCH (05:42)
[2020-04-17 05:53] LABS: Hematocrit (blood only) 29.9 % (37-47); Mean Corpuscular Hemoglobin 28.8 pg (25-34); Mean Corpuscular Hgb Conc 33.4 g/dL (32-36); Mean Corpuscular Volume 86.2 fL (80-100); Platelet Count 160 K/uL (130-400); RDW Coefficient of Variation 14.9 % (11.5-14.5); RDW Standard Deviation 47.1 fL (36.4-46.3); Red Blood Count 3.47 M/uL (4.2-5.4)
[2020-04-17 06:16] LABS: BUN Creatinine Ratio 26.6 (10-20); Calcium 7.8 mg/dl (8.5-10.1); Creatinine Clr Calc Pharmacy 64.1 ml/min; Est GFR (African American) 88.3; Est GFR (Non-African American) 76.2; Magnesium 2.2 mg/dl (1.8-2.4); Potassium 3.5 mmol/L (3.5-5.1)
[2020-04-17 06:17] LABS: Phosphorus 2.6 mg/dl (2.5-4.9)
--- NOTE | 2020-04-17 08:56 | Hospitalist Progress Note ---
Date of Service April 17, 2020 Assessment & Plan (1) Gram-negative bacteremia: 74-year-old female with PMH of hypothyroidism, CKD III and history of cholecystectomy last year who presents to ED after being called back with positive blood cultures from prior visit -Preliminary blood cultures from 2 sites on 04/14 growing gram-negative bacilli. Repeat blood culture on admission 04/15/20 still growing GNR -On admission, temperature was 37.6 C, no leukocytosis, lactic acid within normal limits -COVID negative from 04/13/20 -chest x-ray without acute abnormality -CT abdomen pelvis with contrast from 04/14 with minimal stranding within the cholecystectomy bed, scarring vs. mild inflammation - history of cholecystectomy in Mar 2019 -No significant finding on abdominal exam Patient has GNR bacteremia with unclear source as of now. Possible source Urinary due to UA -Continue cefepime and Flagyl for now -UA on admission has leuk esterase, WBC 10-30 -Awaiting results of urine cultures and blood culture speciation/sensitivities (2) Hypothyroidism: Continue levothyroxine (3) CKD (chronic kidney disease), stage III: Kidney function at baseline. Continue to monitor daily BMP DVT Ppx: SQ heparin Code status: FULL PCP: Julio Cesar Admission and Anticipated Discharge Date Admission Date: April 15, 2020 Subjective Patient seen and examined Reports she is feeling better. Fatigue is improving Had nausea earlier which had resolved and she was able to finish her breakfast Denied any chills, vomiting Denied any abd pain, diarrhea. Reports feeling constipated Denied any dysuria, freq, urgency, hematuria Physical Exam Constitutional: well nourished and + well hydrated; no acute distress Eyes: PERRL, conjunctivae normal, anicteric sclerae Respiratory: normal respiratory effort, lungs clear to auscultation Cardiovascular: Rate/Rhythm: regular rate and regular rhythm Heart Sounds: normal S1 and normal S2 Extremities: no pedal edema Gastrointestinal (Abdomen): normal bowel sounds, soft, nontender, no hepatosplenomegaly Musculoskeletal: no cyanosis or clubbing, extremities motor strength 5/5 Neurologic: PERRL, EOMI, accommodation nl, no face palsy, no dysarthria Psychiatric: A+Ox3, euthymic affect Results & Data Results & Data ([facility]) Vital Signs (Past 12 Hours) Vital Signs Temp Pulse Pulse Resp BP BP Pulse Ox 04/17/20 08:28 36.7 C 61 18 105/63 98 04/17/20 04:27 36.9 C 62 18 115/68 97 04/16/20 23:59 68 04/16/20 23:49 37.2 C 66 18 124/68 97 Laboratory Results Laboratory Results - last 24 hr 04/17/20 04/17/20 05:20 05:20 WBC 7.60 RBC 3.47 L Hgb 10.0 L Hct 29.9 L MCV 86.2 MCH 28.8 MCHC 33.4 RDW Std Deviation 47.1 H RDW Coeff of Marlon 14.9 H Plt Count 160 MPV 11.0 H Sodium 143 Potassium 3.5 Chloride 112 H Carbon Dioxide 24 Anion Gap 7.0 BUN 20 H Creatinine 0.76 Est Cr Clr Drug Dosing 64.1 Est GFR ( Amer) 88.3 Est GFR (Non-Af Amer) 76.2 BUN/Creatinine Ratio 26.6 H Glucose 103 H Calcium 7.8 L Phosphorus 2.6 Magnesium 2.2
[2020-04-17] MEDS: CEFEPIME 2,000 MG in SYRINGE 0 ML IV SCH ×2 (10:36→23:02)
[2020-04-17] MEDS: POLYETHYLENE (MIRALAX) 17 GM PACK PO SCH (12:02)
[2020-04-17] MEDS: ONDANSETRON INJ 2 MG/ML 2 ML VIAL IV PRN (20:17)
[2020-04-18] MEDS: metroNIDAZOLE 500 MG/100 ML BAG IV SCH ×3 (03:56→20:00)
[2020-04-18 05:58] LABS: Hematocrit (blood only) 30.5 % (37-47); Hemoglobin 10.1 g/dL (12.0-16.0); Mean Corpuscular Hemoglobin 28.7 pg (25-34); Mean Corpuscular Hgb Conc 33.1 g/dL (32-36); Mean Corpuscular Volume 86.6 fL (80-100); Mean Platelet Volume 11.1 fL (7.4-10.4); Platelet Count 187 K/uL (130-400); RDW Coefficient of Variation 15.2 % (11.5-14.5); RDW Standard Deviation 48.4 fL (36.4-46.3); Red Blood Count 3.52 M/uL (4.2-5.4); White Blood Count 8.03 K/uL (4.8-10.8)
[2020-04-18] MEDS: LEVOTHYROXINE SODIUM 25 MCG TABLET PO SCH (06:15)
[2020-04-18] MEDS: HEPARIN SOD 5,000 UNIT/0.5 ML VIAL SQ SCH ×3 (06:15→20:15)
[2020-04-18 06:37] LABS: BUN Creatinine Ratio 21.4 (10-20); Calcium 8.5 mg/dl (8.5-10.1); Creatinine Clr Calc Pharmacy 67.1 ml/min; Est GFR (African American) 92.7; Potassium 3.6 mmol/L (3.5-5.1)
[2020-04-18] MEDS: POLYETHYLENE (MIRALAX) 17 GM PACK PO SCH (09:05)
--- NOTE | 2020-04-18 11:35 | Hospitalist Progress Note ---
Date of Service April 18, 2020 Assessment & Plan (1) Gram-negative bacteremia: 74-year-old female with PMH of hypothyroidism, CKD III and history of cholecystectomy last year who presents to ED after being called back with positive blood cultures from prior visit -Preliminary blood cultures from 2 sites on 04/14 growing gram-negative bacilli. Repeat blood culture on admission 04/15/20 still growing GNR -On admission, temperature was 37.6 C, no leukocytosis, lactic acid within normal limits -COVID negative from 04/13/20 -chest x-ray without acute abnormality -CT abdomen pelvis with contrast from 04/14 with minimal stranding within the cholecystectomy bed, scarring vs. mild inflammation - history of cholecystectomy in Mar 2019 -No significant finding on abdominal exam Patient has GNR bacteremia with unclear source as of now. Possible source Urinary due to UA -Continue cefepime and Flagyl for now -UA on admission has leuk esterase, WBC 10-30 -Awaiting results of urine cultures and blood culture speciation/sensitivities. Called lab and was told cultures were sent to outside lab Will follow up with microbiologist in AM Will appreciate ID recommendations (2) Hypothyroidism: Continue levothyroxine (3) CKD (chronic kidney disease), stage III: Kidney function at baseline. Continue to monitor daily BMP DVT Ppx: SQ heparin Code status: FULL PCP: Julio Cesar Admission and Anticipated Discharge Date Admission Date: April 15, 2020 Subjective Patient seen and examined Reports feeling better States she feels stronger today. Fatigue is resolving No fevers, chills, nausea, vomiting No abd pain, dysuria, freq, urgency No diarrhea or constipation No cough, chest pain, SOB, MERA Physical Exam Constitutional: well nourished and + well hydrated; no acute distress Eyes: PERRL, conjunctivae normal, anicteric sclerae Respiratory: normal respiratory effort, lungs clear to auscultation Cardiovascular: Rate/Rhythm: regular rate and regular rhythm Heart Sounds: normal S1 and normal S2 Extremities: no pedal edema Gastrointestinal (Abdomen): normal bowel sounds, soft, nontender, no hepatosp lenomegaly Musculoskeletal: no cyanosis or clubbing, extremities motor strength 5/5 Neurologic: PERRL, EOMI, accommodation nl, no face palsy, no dysarthria Psychiatric: A+Ox3, euthymic affect Results & Data Results & Data ([facility]) Vital Signs (Past 12 Hours) Vital Signs Temp Pulse Pulse Resp BP Pulse Ox 04/18/20 08:02 36.8 C 63 17 108/65 97 04/18/20 08:00 64 04/18/20 04:00 36.6 C 61 16 106/56 L 97 Laboratory Results Laboratory Results - last 24 hr 04/18/20 04/18/20 05:34 05:34 WBC 8.03 RBC 3.52 L Hgb 10.1 L Hct 30.5 L MCV 86.6 MCH 28.7 MCHC 33.1 RDW Std Deviation 48.4 H RDW Coeff of Marlon 15.2 H Plt Count 187 MPV 11.1 H Sodium 141 Potassium 3.6 Chloride 110 H Carbon Dioxide 26 Anion Gap 6.0 BUN 16 Creatinine 0.73 Est Cr Clr Drug Dosing 67.1 Est GFR ( Amer) 92.7 Est GFR (Non-Af Amer) 80.0 BUN/Creatinine Ratio 21.4 H Glucose 106 H Calcium 8.5
[2020-04-18] MEDS: CEFEPIME 2,000 MG in SYRINGE 0 ML IV SCH ×2 (11:59→23:00)
[2020-04-19] MEDS: metroNIDAZOLE 500 MG/100 ML BAG IV SCH ×2 (02:34→11:25)
[2020-04-19] MEDS: HEPARIN SOD 5,000 UNIT/0.5 ML VIAL SQ SCH ×3 (05:22→22:20)
[2020-04-19] MEDS: LEVOTHYROXINE SODIUM 25 MCG TABLET PO SCH (05:50)
[2020-04-19] MEDS: POLYETHYLENE (MIRALAX) 17 GM PACK PO SCH (09:43)
--- NOTE | 2020-04-19 10:50 | Hospitalist Progress Note ---
Date of Service April 19, 2020 Assessment & Plan (1) Gram-negative bacteremia: 74-year-old female with PMH of hypothyroidism, CKD III and history of cholecystectomy last year who presents to ED after being called back with positive blood cultures from prior visit -Preliminary blood cultures from 2 sites on 04/14 growing gram-negative bacilli. Repeat blood culture on admission 04/15/20 still growing GNR -On admission, temperature was 37.6 C, no leukocytosis, lactic acid within normal limits -COVID negative from 04/13/20 -chest x-ray without acute abnormality -CT abdomen pelvis with contrast from 04/14 with minimal stranding within the cholecystectomy bed, scarring vs. mild inflammation - history of cholecystectomy in Mar 2019 -No significant finding on abdominal exam Patient has GNR bacteremia with unclear source as of now. Possible source Urinary due to UA -Continue cefepime and Flagyl for now -UA on admission has leuk esterase, WBC 10-30 -Awaiting results of blood culture speciation/sensitivities. Called lab and was told cultures were sent to outside lab Spoke with DEIDRA Davis, who will evaluate and give recommendations (2) Hypothyroidism: Continue levothyroxine (3) CKD (chronic kidney disease), stage III: Kidney function at baseline. Continue to monitor daily BMP DVT Ppx: SQ heparin Code status: FULL PCP: Julio Cesar Admission and Anticipated Discharge Date Admission Date: April 15, 2020 Subjective Patient seen and examined Reports feeling better No nausea, vomiting, abd pain, diarrhea, constipation No dysuria, freq, urgency, hematuria No fevers, chills Physical Exam Constitutional: well nourished and + well hydrated; no acute distress Eyes: PERRL, conjunctivae normal, anicteric sclerae Respiratory: normal respiratory effort, lungs clear to auscultation Cardiovascular: Rate/Rhythm: regular rate and regular rhythm Heart Sounds: normal S1 and normal S2 Extremities: no pedal edema Gastrointestinal (Abdomen): normal bowel sounds, soft, nontender, no hepatosplenomegaly Musculoskeletal: no cyanosis or clubbing, extremities motor strength 5/5 Neurologic: PERRL, EOMI, accommodation nl, no face palsy, no dysarthria Psychiatric: A+Ox3, euthymic affect Results & Data Results & Data ([facility]) Vital Signs (Past 12 Hours) Vital Signs Temp Pulse Pulse Resp BP Pulse Ox 04/19/20 08:18 36.7 C 62 18 118/60 96 10/06/20 07:45 57 L 04/19/20 03:36 36.4 C L 59 L 16 111/66 98 04/18/20 23:56 36.4 C L 59 L 16 102/53 L 99 04/18/20 23:26 61
[2020-04-19] MEDS: CEFEPIME 2,000 MG in SYRINGE 0 ML IV SCH ×2 (11:25→22:20)
[2020-04-20] MEDS: LEVOTHYROXINE SODIUM 25 MCG TABLET PO SCH (06:06)
[2020-04-20] MEDS: HEPARIN SOD 5,000 UNIT/0.5 ML VIAL SQ SCH ×3 (06:07→21:09)
[2020-04-20] MEDS: POLYETHYLENE (MIRALAX) 17 GM PACK PO SCH (08:43)
[2020-04-20] MEDS: CEFEPIME 2,000 MG in SYRINGE 0 ML IV SCH ×2 (11:51→22:01)
--- NOTE | 2020-04-20 19:34 | Hospitalist Progress Note ---
Date of Service April 20, 2020 Assessment & Plan (1) Gram-negative bacteremia: per Dr. Barrera's notes: 74-year-old female with PMH of hypothyroidism, CKD III and history of cholecystectomy last year who presents to ED after being called back with positive blood cultures from prior visit -Preliminary blood cultures from 2 sites on 04/14 growing gram-negative bacilli. Repeat blood culture on admission 04/15/20 still growing GNR -On admission, temperature was 37.6 C, no leukocytosis, lactic acid within normal limits -COVID negative from 04/13/20 -chest x-ray without acute abnormality -CT abdomen pelvis with contrast from 04/14 with minimal stranding within the cholecystectomy bed, scarring vs. mild inflammation - history of cholecystectomy in Mar 2019 -No significant finding on abdominal exam Patient has GNR bacteremia with unclear source as of now. Possible source Urinary due to UA -Continue cefepime and Flagyl for now -UA on admission has leuk esterase, WBC 10-30 -Awaiting results of blood culture speciation/sensitivities. Called lab and was told cultures were sent to outside lab Spoke with ID , who will evaluate and give recommendations 04/20/20 Blood cultures sent for ID to [facility] (+) Acinetobacter, sens pending patient clinically improving continue IV Cefepime (2) Hypothyroidism: Continue levothyroxine (3) CKD (chronic kidney disease), stage III: Kidney function at baseline. Continue to monitor daily BMP plan of care discussed with patient in detail and at length all questions answered she is understanding, agreeable, comfortable with the plan of care DVT Ppx: SQ heparin Code status: FULL PCP: Julio Cesar Admission and Anticipated Discharge Date Admission Date: April 15, 2020 Subjective ff up for bacteremia seen sitting up in bed, comfortable not in distress states she feels fine overall denies headache, fever/chills, cough, SOB, abdominal pain, problems with urination or BM no other symptoms Review of Systems Review of Systems: All systems reviewed & are unremarkable except as noted in Subjective Physical Exam Physical Exam: General- oriented x 3, not in distress, speaks in sentences with no effort or accessory muscle use Eyes- anicteric Neck- no JVD Lungs- clear breath sounds bilaterally, no rales/wheezes Heart- normal rate, regular rhythm; no murmurs Abdomen- normal bowel sounds, nondistended, soft, nontender Extremities- no pretibial edema, no calf tenderness Neuro- alert, oriented x 3; no gross focal neurologic deficits Skin- warm & dry Results & Data Results & Data ([facility]) Vital Signs (Past 12 Hours) Vital Signs Temp Pulse Resp BP Pulse Ox 04/20/20 15:26 36.5 C 59 L 16 119/68 98 04/20/20 07:37 36.5 C 65 18 122/72 97
[2020-04-21] MEDS: HEPARIN SOD 5,000 UNIT/0.5 ML VIAL SQ SCH ×2 (05:57→13:59)
[2020-04-21] MEDS: LEVOTHYROXINE SODIUM 25 MCG TABLET PO SCH (05:57)
[2020-04-21 06:11] LABS: Hemoglobin 10.2 g/dL (12.0-16.0); Mean Corpuscular Hemoglobin 29.1 pg (25-34); Mean Corpuscular Hgb Conc 32.9 g/dL (32-36); Mean Corpuscular Volume 88.6 fL (80-100); Mean Platelet Volume 10.8 fL (7.4-10.4); Platelet Count 297 K/uL (130-400); RDW Coefficient of Variation 15.3 % (11.5-14.5); RDW Standard Deviation 49.5 fL (36.4-46.3); White Blood Count 9.17 K/uL (4.8-10.8)
[2020-04-21 08:41] LABS: BUN Creatinine Ratio 16.3 (10-20); Calcium 8.7 mg/dl (8.5-10.1); Creatinine Clr Calc Pharmacy 69.9 ml/min; Est GFR (African American) 97.5; Est GFR (Non-African American) 84.2
[2020-04-21] MEDS: POLYETHYLENE (MIRALAX) 17 GM PACK PO SCH (08:54)
[2020-04-21] MEDS: CEFEPIME 2,000 MG in SYRINGE 0 ML IV SCH ×2 (11:36→17:56)
--- NOTE | 2020-04-21 16:16 | Hospitalist Progress Note ---
Date of Service April 21, 2020 Assessment & Plan (1) Gram-negative bacteremia: per Dr. Barrera's notes: 74-year-old female with PMH of hypothyroidism, CKD III and history of cholecystectomy last year who presents to ED after being called back with positive blood cultures from prior visit -Preliminary blood cultures from 2 sites on 04/14 growing gram-negative bacilli. Repeat blood culture on admission 04/15/20 still growing GNR -On admission, temperature was 37.6 C, no leukocytosis, lactic acid within normal limits -COVID negative from 04/13/20 -chest x-ray without acute abnormality -CT abdomen pelvis with contrast from 04/14 with minimal stranding within the cholecystectomy bed, scarring vs. mild inflammation - history of cholecystectomy in Mar 2019 -No significant finding on abdominal exam Patient has GNR bacteremia with unclear source as of now. Possible source Urinary due to UA -Continue cefepime and Flagyl for now -UA on admission has leuk esterase, WBC 10-30 -Awaiting results of blood culture speciation/sensitivities. Called lab and was told cultures were sent to outside lab Spoke with ID , who will evaluate and give recommendations 04/20/20 Blood cultures sent for ID to [facility] (+) Acinetobacter, sens pending patient clinically improving continue IV Cefepime 04/21/20 discussed with Micro Lab [facility] sent in preliminary sensitivities for Acinetobacter: Cefepime < 2, Ceftri Intermediate discussed with patient, she prefers to be discharged today on empiric Cipro PO tomorrow, then start Cefepime IV on Saturday (no home health SVC available tomorrow) if final sensitivities reveal Acinetobacter is sensitive to Cipro, will call patient to change Cefepime to PO Cipro advised to hydrate well, probiotics daily ff up with PCP in 1 week for CBC, BMP (2) Hypothyroidism: Continue levothyroxine (3) CKD (chronic kidney disease), stage III: Kidney function at baseline repeat BMP on ff up with PCP next week plan of care discussed with patient in detail and at length all questions answered she is understanding, agreeable, comfortable with the plan of care Disposition d/c home ff up with PCP next week per DC instructions Admission and Anticipated Discharge Date Admission Date: April 15, 2020 Subjective ff up for bacteremia seen sitting up in bed, comfortable states she feels fine overall denies headache, fever/chills, palpitations, dizzines ambulating with no problems denies other symptoms Review of Systems Review of Systems: All systems reviewed & are unremarkable except as noted in Subjective Physical Exam Physical Exam: General- oriented x 3, not in distress, speaks in sentences with no effort or accessory muscle use Eyes- anicteric Neck- no JVD Lungs- clear breath sounds BL Heart- normal rate, regular rhythm; no murmurs Abdomen- normal bowel sounds, nondistended, soft, nontender Extremities- no pretibial edema, no calf tenderness IV site left antecubital fossa: no issues Neuro- alert, oriented x 3; no gross focal neurologic deficits Skin- warm & dry Results & Data Results & Data ([facility]) Vital Signs (Past 12 Hours) Vital Signs Temp Pulse Resp BP Pulse Ox 04/21/20 07:30 36.5 C 56 L 16 120/70 98
[2020-04-21] MEDS ORDERED: CIPROFLOXACIN 500MG HOME PACK PO ONE (16:45)
--- NOTE | 2020-04-21 16:50 | Discharge Summary ---
Date of Service April 21, 2020 Admission HPI Per Admitting Provider This is a 74-year-old female with PMH of hypothyroidism, CKD III and history of cholecystectomy last year who presents to ED after being called back with positive blood cultures from yesterday's visit. Patient was recently in [place] and returned this past Saturday. By Saturday, patient developed fever with Tmax of 101 F orally with nausea and vomiting. Had outpatient COVID test that returned negative yesterday. Was seen in ED yesterday and received IV fluids and blood cultures obtained. Also had CT abdomen pelvis at that time that showed minimal stranding within the cholecystectomy bed, decreased since CT of April 18, 2019. Scarring is favored. Mild inflammation could appear similar. No operative bed fluid collection. Preliminary blood cultures resulted today from 2 sites growing gram-negative bacilli. Patient feels more short of breath and fatigued since yesterday with chills. Temperature 37.6 C in ED. Denies any lightheadedness, cough, nausea, vomiting or abdominal pain. Denies any chest pain or palpitations. No dysuria, diarrhea or constipation. Does also endorse tooth ache of left upper molar for the past week. Admission Exam Per Admitting Provider General Appearance: WD/WN, vitals as above, appears acutely ill, sitting up in bed, pleasant, conversing easily Head: normocephalic, atraumatic Eyes: normal inspection, PERRL, conjunctivae normal, anicteric sclerae ENT: external ear and nose normal, oropharynx normal. + Poor dentition Neck: normal visual inspection, trachea midline, no thyromegaly Respiratory: normal respiratory effort, lungs clear to auscultation, no wheeze, rales, rhonchi. No accessory muscle use Cardiovascular: Tachycardic, regular, rhythm, no murmur, normal peripheral pul ses, no BLE edema. Vessels: no JVD Chest: normal inspection of chest Abdomen/GI: normal bowel sounds, soft, nontender, no hepatosplenomegaly Extremities/Musculoskeletal: no cyanosis or clubbing, extremities motor strength 5/5 Neurologic: PERRL, EOMI, accommodation nl, no face palsy, no dysarthria, CN's II-XI intact bilaterally and moves all extremities Psychiatric: A+Ox3, euthymic affect Skin: no rashes, normal color, warm/dry Principal Diagnosis ACINETOBACTER BACTEREMIA Discharge Exam General- oriented x 3, not in distress, speaks in sentences with no effort or accessory muscle use Eyes- anicteric Neck- no JVD Lungs- clear breath sounds BL Heart- normal rate, regular rhythm; no murmurs Abdomen- normal bowel sounds, nondistended, soft, nontender Extremities- no pretibial edema, no calf tenderness IV site left antecubital fossa: no issues Neuro- alert, oriented x 3; no gross focal neurologic deficits Skin- warm & dry Discharge Data Allergies Allergy/AdvReac Type Severity Reaction Status Date / Time No Known Allergies Allergy Unverified 04/15/20 10:37 Consultations 04/15/20 10:34 ED Decision to Admit Stat 04/18/20 10:28 Consult Infectious Diseases Routine Hospital Course (1) Gram-negative bacteremia: per Dr. Barrera's notes: 74-year-old female with PMH of hypothyroidism, CKD III and history of cholecystectomy last year who presents to ED after being called back with positive blood cultures from prior visit -Preliminary blood cultures from 2 sites on 04/14 growing gram-negative bacilli. Repeat blood culture on admission 04/15/20 still growing GNR -On admission, temperature was 37.6 C, no leukocytosis, lactic acid within normal limits -COVID negative from 04/13/20 -chest x-ray without acute abnormality -CT abdomen pelvis with contrast from 04/14 with minimal stranding within the cholecystectomy bed, scarring vs. mild inflammation - history of cholecystectomy in Mar 2019 -No significant finding on abdominal exam Patient has GNR bacteremia with unclear source as of now. Possible source Urinary due to UA -Continue cefepime and Flagyl for now -UA on admission has leuk esterase, WBC 10-30 -Awaiting results of blood culture speciation/sensitivities. Called lab and was told cultures were sent to outside lab Spoke with ID , who will evaluate and give recommendations 04/20/20 Blood cultures sent for ID to [facility] (+) Acinetobacter, sens pending patient clinically improving continue IV Cefepime 04/21/20 discussed with Micro Lab [facility] sent in preliminary sensitivities for Acinetobacter: Cefepime < 2, Ceftri Intermediate discussed with patient, she prefers to be discharged today on empiric Cipro PO tomorrow, then start Cefepime IV on Saturday, X 7 days (no home health SVC available tomorrow) if final sensitivities reveal Acinetobacter is sensitive to Cipro, will call patient to change Cefepime to PO Cipro x 7 days advised to hydrate well, probiotics daily ff up with PCP in 1 week for CBC, BMP (2) Hypothyroidism: Continue levothyroxine (3) CKD (chronic kidney disease), stage III: Kidney function at baseline repeat BMP on ff up with PCP next week plan of care discussed with patient in detail and at length all questions answered she is understanding, agreeable, comfortable with the plan of care Disposition d/c home ff up with PCP next week per DC instructions Total Time Total Time Spent Total Time Spent (In Minutes): 55 minutes Discharge Plan Discharge Items Patient Disposition: Home - Home Health Services Reason For Visit: BLOOD INFECTION Discharge Diagnosis: BLOOD STREAM INFECTION Condition on Discharge: Good Activity: Resume your previous activity Non-emergency contact: Primary Care Provider Call non-emergency contact if: you have any medication questions, your symptoms worsen and you have a fever Follow-up/Referrals: Antonia Harrell MD [Primary Care Provider] - 04/25/20 5:40 pm (Date & Time 04/25/2020 5:40 PM Provider Antonia Harrell MD Department Internal Medicine [facility] ) Diet: Heart Healthy Addtl Attending Provider Instructions: YOUR NEW MEDICATIONS INCLUDE: CIPROFLOXACIN- antibiotic for bloodstream infection x 1 day (April 22, 2020) CEFEPIME- antibiotic for bloodstream infection x 7 days (April 23-2019) CULTURELLE- probiotics to prevent diarrhea TAKE A PROBIOTIC, YOGURT DAILY FOR AT LEAST 1 MONTH. CALL YOUR PRIMARY CARE PHYSICIAN OR RETURN TO THE ER IMMEDIATELY IF WITH WORSENING OF SYMPTOMS, FEVER/CHILLS, NAUSEA/VOMITING, WEAKNESS, SWELLING/PAIN/DISCHARGE/REDNESS ON IV SITE. PLEASE FOLLOW UP WITH PRIMARY CARE PHYSICIAN NEXT WEEK OUTLINED ABOVE. Pending Studies at Discharge: Yes Studies:: REPEAT BLOODWORK C/O PRIMARY CARE PHYSICIAN NEXT WEEK: COMPLETE BLOOD COUNT, BASIC METABOLIC PROFILE Stand-Alone Forms: [facility], Smoking Cessation Medications and DC Order Prescriptions: New cefepime 2 gram recon soln 2 g IV Q12H Qty: 14 RF: 0 ciprofloxacin HCl 500 mg tablet 500 mg PO Q12H Qty: 2 RF: 0 Continued levothyroxine [Synthroid] 25 mcg tablet 25 mcg PO QAM RF: 0 acetaminophen [Tylenol] 325 mg Tablet 325 mg PO QID PRN (Reason: Pain) RF: 0 Discontinued ondansetron 4 mg tablet,disintegrating 4 mg PO Q8H PRN (Reason: nausea and vomiting) Qty: 10 RF: 0 Discharge Orders: Discharge Order (Routine); Ordered 04/21/20 Ordered By: Carlos Naranjo/Other Patient Handouts: IV Care: Using IV Antibiotics, Heparin injection Admission Data Admit Date/Time: 04/15/20 10:42 Attending Provider: Carlos Díaz Admit Provider: Jose Garcia Primary Care Provider: Antonia Harrell Other Providers: Jose Garcia ; Neftali Weinstein ; Ambrose Marina ; Chaz Guevara I. ; Ramos Mcmillan II ; Daphney Nails ; Jayjay Charlton ; Tamika Barrera I. ; Rudy,Aydin Other Interventions: Discharge Summary Assessment (RN) Last Done: 04/21/20 16:13
== END 2020-04-21 18:20 | disposition home health service (06) | DRG 872 ==
LOC: ED 09:50 → SUATTDRO 10:42 → 2S 10:42 → 3E 04-19 13:12

== ENCOUNTER 2021-11-06 06:51 | Inpatient (IN) ==
[2021-11-06] MEDS ORDERED: SODIUM CHLORIDE 0.9% 1000ML 1,000 ML IV STA (07:16)
--- NOTE | 2021-11-06 07:25 | Emergency Department Note ---
History of Present Illness General Chief complaint: Fever Stated complaint: WEAKNESS,FEVER,VOMITING Time Seen by Provider: 11/06/21 07:15 History of Present Illness This is a 76-year-old female with a history of hypothyroidism and gram-negative bacteremia that presents to the emergency department via private vehicle with complaints of "weakness, fever, vomiting". Patient notes that in April 2020 she was admitted for gram-negative bacteremia. She was on a course of intravenous antibiotics. She notes that the source of the bacteremia was not identified. She has been doing well since that time up until this past Saturday. She began with vomiting, feeling feverish, and very fatigued. She notes intermittent vomiting and diarrhea. She does state that when she attempts to eat she vomits. She has been able to maintain a regimen of small amounts of toast and water since that time. This does feel similar to her presentation she notes in April of 2020. Temperature last night 101 F. This morning it was 100.4 F. No antipyretics thus far. No chest pain. She does note that she feels weak and may be has a small amount of shortness of breath. She denies any known immunocompromising conditions. She denies any true areas of discomfort other than her feet intermittently hurting. She also notes some abdominal discomfort intermittently. Upon review of the chart it appears that she was see n here and admitted for blood culture positive for Acinetobacter baumannii. Patient denies any allergies but does note that upon discharge from the hospital previously on IV antibiotics for her gram-negative bacteremia the IV antibiotic seem to have caused hives later in the course. Sensitivities performed by [facility] and resulted April 21, 2020. Pansensitive other than intermediate value for ceftriaxone. Home Medications Medication Instructions Recorded Confirmed Type levothyroxine 25 mcg tablet 25 mcg PO QAM 04/10/19 03/03/21 History (Synthroid) acetaminophen 325 mg tablet 325 mg PO QID PRN 04/15/20 03/03/21 History (Tylenol) cefepime 2 gram solution for 2 g IV Q12H #14 ea 04/21/20 03/03/21 Rx injection ciprofloxacin HCl 500 mg tablet 500 mg PO Q12H #2 tab 04/21/20 03/03/21 Rx Allergies Allergy/AdvReac Type Severity Reaction Status Date / Time cefepime Allergy HIVES Verified 11/06/21 10:42 Past Med/Surg History Medical History (Updated 11/06/21 @ 10:45 by Zohreh Jaime PA-C) CKD (chronic kidney disease), stage III Gram-negative bacteremia Hypothyroidism Sensorineural hearing 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 Dr England at [facility] History of colonoscopy History of dilatation and curettage Family History Mother Asthma Father Cancer Prostate cancer Hearing loss Other Diabetes No family history of bleeding disorder Denies family history of Heart disease Hypertension Stroke Social History Smoking Status: Never smoker Hx Alcohol Use: No Hx Substance Use: No Preferred Language: Frisian Communication Ability: Effective Barrel Inspector Tight Required: No Beliefs That Will Affect Care: None marital status: Current Living Situation: Spouse current occupational status: retired Feels Safe at Home: Yes Assistive Devices: Glasses Review of Systems A total of 10 systems reviewed and were otherwise negative Physical Exam Vital Signs Vital Signs - 24 hr 11/06/21 06:55 11/06/21 08:04 11/06/21 08:05 Temperature 37.0 C 37.1 C Temperature Source Temporal Artery Scan Oral Pulse Rate 91 H Pulse Rate [Apical] 82 Pulse Rhythm Regular Pulse Strength Normal Respiratory Rate 20 19 Respiratory Effort / Characteristics Non-Labored Spontaneous Non-Labored Spontaneous Respiratory Depth Normal Normal Respiratory Pattern Regular Blood Pressure 112/64 Blood Pressure [Right Arm] 119/60 Blood Pressure Mean 80 Blood Pressure Mean [Right Arm] 79 Blood Pressure Position Sitting Blood Pressure Position [Right Arm] Pulse Oximetry 95 95 Oxygen Delivery Method Room Air Room Air Sepsis Recent Fever Within 48 Hours No Sepsis New/Unexplained Change in Mental Status No Sepsis Action Taken by Nursing No Action Required 11/06/21 09:45 Temperature Temperature Source Pulse Rate Pulse Rate [Apical] 73 Pulse Rhythm Pulse Strength Respiratory Rate 18 Respiratory Effort / Characteristics Non-Labored Spontaneous Respiratory Depth Normal Respiratory Pattern Blood Pressure Blood Pressure [Right Arm] 112/62 Blood Pressure Mean Blood Pressure Mean [Right Arm] 78 Blood Pressure Position Blood Pressure Position [Right Arm] Sitting Pulse Oximetry 96 Oxygen Delivery Method Room Air Sepsis Recent Fever Within 48 Hours Sepsis New/Unexplained Change in Mental Status Sepsis Action Taken by Nursing VITAL SIGNS - Vital signs and nursing notes were reviewed. Stable and afebrile. GENERAL - 76-year-old female appearing her stated age who is in no acute distress. Communicates well with provider and answers questions appropriately. SKIN - Without rashes. HEAD - NC/AT. EYES - PERRL with EOMI bilaterally. Sclera anicteric. EARS - No deformities of external structures noted on gross examination bilaterally. Hearing aids noted bilaterally. NOSE - Midline and without cyanosis. No epistaxis or purulent drainage noted. Septum midline without deviation or septal hematoma noted. MOUTH/OROPHARYNX - Without perioral cyanosis. Buccal mucosa pink and moist and without leukoplakia. Tongue midline with equal elevation of palate bilaterally. No tonsillar hypertrophy, erythema, or exudates noted. NECK - Neck with FROM. No nuchal rigidity. LUNGS - Chest wall symmetric without accessory muscle use, intercostals retractions, or central cyanosis. Normal vesicular breath sounds CTA B/L. No wheezes, rales, or rhonchi appreciated. CARDIAC - RRR with S1/S2. No murmur, rubs, or gallops appreciated. ABDOMEN - Abdominal contour normal without pulsations or visible masses. BS normoactive all four quadrants. No tenderness, palpable masses, hepatosplenomegaly, or ascites noted. EXTREMITIES - No clubbing or peripheral cyanosis. +5/5 strength noted in UE/LE bilaterally. NEUROLOGIC - Cranial nerves II through XII grossly intact. PSYCH - A&Ox3 and cooperates fully with examiner. Pt is very pleasant and interacts well with examiner. Course Administered Medications Sodium Chloride (Nss 1000ml) 1,000 mls @ 125 mls/hr IV .Q8H STA Stop: 11/06/21 15:15 Last Admin: 11/06/21 08:18 Dose: 125 mls/hr Documented by: [id number] Discontinued Medications Ioversol (Optiray 320 100ml) 94 ml IV ONCE ONE Stop: 11/06/21 10:09 Last Admin: 11/06/21 10:00 Dose: 94 ml Documented by: [id number] Medical Decision Making Laboratory Data Result diagrams: 11/06/21 07:50 11/06/21 07:50 Lab Results 04/11/06/21 11/06/21 Range/Units 07:50 07:50 07:50 WBC 9.98 (4.8-10.8) K/uL RBC 3.81 L (4.2-5.4) M/uL Hgb 11.4 L (12.0-16.0) g/dL Hct 33.6 L (37-47) % MCV 88.2 (80-100) fL MCH 29.9 (25-34) pg MCHC 33.9 (32-36) g/dL RDW Std Deviation 45.4 (36.4-46.3) fL RDW Coeff of Marlon 13.8 (11.5-14.5) % Plt Count 139 (130-400) K/uL MPV 11.5 H (7.4-10.4) fL Immature Gran % (Auto) 0.2 % Neut % (Auto) 84.4 % Lymph % (Auto) 5.9 % [place] % (Auto) 9.4 % Eos % (Auto) 0.0 % Baso % (Auto) 0.1 % Neut # (Auto) 8.42 H (1.4-6.5) K/uL Lymph # (Auto) 0.59 L (1.2-3.4) K/uL [place] # (Auto) 0.94 H (0.11-0.59) K/uL Eos # (Auto) 0.00 (0-0.5) K/uL Baso # (Auto) 0.01 (0-0.2) K/uL Immature Gran # (Auto) 0.02 (0.00-0.02) K/uL Sodium 133 L (136-145) mmol/L Potassium 3.5 (3.5-5.1) mmol/L Chloride 101 (98-107) mmol/L Carbon Dioxide 23 (21-32) mmol/L Anion Gap 9 (3-11) BUN 22 (6-23) mg/dl Creatinine 0.98 (0.6-1.2) mg/dl Est Cr Clr Drug Dosing 46.6 ml/min Est GFR ( Amer) 64.0 ml/min Est GFR (Non-Af Amer) 55.3 ml/min BUN/Creatinine Ratio 22.4 H (10-20) Glucose 136 H (70-99(Fasting)) mg/dl Lactate (0.4-2.0) mmol/L Calcium 8.6 (8.5-10.1) mg/dl Total Bilirubin 1.2 H (0.2-1.0) mg/dl AST 32 (13-39) U/L ALT 33 (7-52) U/L Alkaline Phosphatase 73 (34-104) U/L Troponin I High Sens 3.4 (0-14) pg/ml Total Protein 6.6 (6.0-8.3) gm/dl Albumin 3.6 (3.4-5.0) gm/dl Globulin 3.0 (2.5-4.0) gm/dl Albumin/Globulin Ratio 1.2 (0.9-2) Procalcitonin (0-0.5) ng/ml Urine Color Urine Appearance (Clear) Urine pH (4.5-7.5) Ur Specific [place] (1.000-1.030) Urine Protein (Negative) Urine Glucose (UA) (Negative) Urine Ketones (Negative) Urine Blood (Negative) Urine Nitrite (Negative) Urine Bilirubin (Negative) Urine Urobilinogen (Negative) Ur Leukocyte Esterase (Negative) Urine WBC (Auto) (0-5) /hpf Urine RBC (Auto) (0-4) /hpf U Hyaline Cast (Auto) (0-5) /lpf U Epithel Cells (Auto) (0-5) /lpf Urine Bacteria (Auto) (Negative) Ur Renal Epithelial Cell Granular Casts (0) /lpf Urine Mucus (None Prsent) Urine Yeast Anaplasma Smear See Comment Lyme Disease IgG Ab (Negative) Lyme Disease IgM Ab (Negative) SARS-CoV-2 (PCR) (Negative) Influenza Type A (PCR) (Neg) Influenza Type B (PCR) (Neg) RSV (RT-PCR) (Neg) 11/06/21 11/06/21 11/06/21 Range/Units 07:50 07:50 07:50 WBC (4.8-10.8) K/uL RBC (4.2-5.4) M/uL Hgb (12.0-16.0) g/dL Hct (37-47) % MCV (80-100) fL MCH (25-34) pg MCHC (32-36) g/dL RDW Std Deviation (36.4-46.3) fL RDW Coeff of Marlon (11.5-14.5) % Plt Count (130-400) K/uL MPV (7.4-10.4) fL Immature Gran % (Auto) % Neut % (Auto) % Lymph % (Auto) % [place] % (Auto) % Eos % (Auto) % Baso % (Auto) % Neut # (Auto) (1.4-6.5) K/uL Lymph # (Auto) (1.2-3.4) K/uL [place] # (Auto) (0.11-0.59) K/uL Eos # (Auto) (0-0.5) K/uL Baso # (Auto) (0-0.2) K/uL Immature Gran # (Auto) (0.00-0.02) K/uL Sodium (136-145) mmol/L Potassium (3.5-5.1) mmol/L Chloride (98-107) mmol/L Carbon Dioxide (21-32) mmol/L Anion Gap (3-11) BUN (6-23) mg/dl Creatinine (0.6-1.2) mg/dl Est Cr Clr Drug Dosing ml/min Est GFR ( Amer) ml/min Est GFR (Non-Af Amer) ml/min BUN/Creatinine Ratio (10-20) Glucose (70-99(Fasting)) mg/dl Lactate (0.4-2.0) mmol/L Calcium (8.5-10.1) mg/dl Total Bilirubin (0.2-1.0) mg/dl AST (13-39) U/L ALT (7-52) U/L Alkaline Phosphatase (34-104) U/L Troponin I High Sens (0-14) pg/ml Total Protein (6.0-8.3) gm/dl Albumin (3.4-5.0) gm/dl Globulin (2.5-4.0) gm/dl Albumin/Globulin Ratio (0.9-2) Procalcitonin 3.77 H (0-0.5) ng/ml Urine Color Urine Appearance (Clear) Urine pH (4.5-7.5) Ur Specific [place] (1.000-1.030) Urine Protein (Negative) Urine Glucose (UA) (Negative) Urine Ketones (Negative) Urine Blood (Negative) Urine Nitrite (Negative) Urine Bilirubin (Negative) Urine Urobilinogen (Negative) Ur Leukocyte Esterase (Negative) Urine WBC (Auto) (0-5) /hpf Urine RBC (Auto) (0-4) /hpf U Hyaline Cast (Auto) (0-5) /lpf U Epithel Cells (Auto) (0-5) /lpf Urine Bacteria (Auto) (Negative) Ur Renal Epithelial Cell Granular Casts (0) /lpf Urine Mucus (None Prsent) Urine Yeast Anaplasma Smear Cancelled Lyme Disease IgG Ab Negative (Negative) Lyme Disease IgM Ab Negative (Negative) SARS-CoV-2 (PCR) NEGATIVE (Negative) Influenza Type A (PCR) Negative (Neg) Influenza Type B (PCR) Negative (Neg) RSV (RT-PCR) Negative (Neg) 11/06/21 11/06/21 11/06/21 Range/Units 07:50 08:11 09:19 WBC (4.8-10.8) K/uL RBC (4.2-5.4) M/uL Hgb (12.0-16.0) g/dL Hct (37-47) % MCV (80-100) fL MCH (25-34) pg MCHC (32-36) g/dL RDW Std Deviation (36.4-46.3) fL RDW Coeff of Marlon (11.5-14.5) % Plt Count (130-400) K/uL MPV (7.4-10.4) fL Immature Gran % (Auto) % Neut % (Auto) % Lymph % (Auto) % [place] % (Auto) % Eos % (Auto) % Baso % (Auto) % Neut # (Auto) (1.4-6.5) K/uL Lymph # (Auto) (1.2-3.4) K/uL [place] # (Auto) (0.11-0.59) K/uL Eos # (Auto) (0-0.5) K/uL Baso # (Auto) (0-0.2) K/uL Immature Gran # (Auto) (0.00-0.02) K/uL Sodium (136-145) mmol/L Potassium (3.5-5.1) mmol/L Chloride (98-107) mmol/L Carbon Dioxide (21-32) mmol/L Anion Gap (3-11) BUN (6-23) mg/dl Creatinine (0.6-1.2) mg/dl Est Cr Clr Drug Dosing ml/min Est GFR ( Amer) ml/min Est GFR (Non-Af Amer) ml/min BUN/Creatinine Ratio (10-20) Glucose (70-99(Fasting)) mg/dl Lactate 0.8 (0.4-2.0) mmol/L Calcium (8.5-10.1) mg/dl Total Bilirubin (0.2-1.0) mg/dl AST (13-39) U/L ALT (7-52) U/L Alkaline Phosphatase (34-104) U/L Troponin I High Sens 5.2 (0-14) pg/ml Total Protein (6.0-8.3) gm/dl Albumin (3.4-5.0) gm/dl Globulin (2.5-4.0) gm/dl Albumin/Globulin Ratio (0.9-2) Procalcitonin (0-0.5) ng/ml Urine Color [place] Urine Appearance Cloudy A (Clear) Urine pH 5.0 (4.5-7.5) Ur Specific [place] 1.018 (1.000-1.030) Urine Protein 1+ H (Negative) Urine Glucose (UA) Negative (Negative) Urine Ketones 1+ H (Negative) Urine Blood 3+ H (Negative) Urine Nitrite Negative (Negative) Urine Bilirubin 1+ H (Negative) Urine Urobilinogen Negative (Negative) Ur Leukocyte Esterase Trace H (Negative) Urine WBC (Auto) 5-10 H (0-5) /hpf Urine RBC (Auto) 5-10 H (0-4) /hpf U Hyaline Cast (Auto) 10-30 H (0-5) /lpf U Epithel Cells (Auto) >30 H (0-5) /lpf Urine Bacteria (Auto) 2+ H (Negative) Ur Renal Epithelial Cell Not Reportable Granular Casts 1-5 H (0) /lpf Urine Mucus Present A (None Prsent) Urine Yeast Not Reportable Anaplasma Smear Lyme Disease IgG Ab (Negative) Lyme Disease IgM Ab (Negative) SARS-CoV-2 (PCR) (Negative) Influenza Type A (PCR) (Neg) Influenza Type B (PCR) (Neg) RSV (RT-PCR) (Neg) Imaging Data Radiologist's Impression: Chest X-Ray 11/06/21 07:16 XR chest 1V portable CLINICAL HISTORY: Fever. COMPARISON STUDY: 04/15/2020 TECHNIQUE: 1 view of the chest FINDINGS: Single frontal view of the chest demonstrates the cardiomediastinal silhouette to be within normal limits. The lungs are clear of alveolar opacities. There is no evidence for pleural effusion. There is no evidence for vascular congestion. There is no acute osseous pathology. IMPRESSION: 1. No acute cardiopulmonary disease. ACT 112: Negative or not required by law. Electronically signed by: Jacob Sanford M.D. 11/06/2021 7:30 AM Abdomen/Pelvis CT 11/06/21 07:27 CT OF THE ABDOMEN AND PELVIS WITH CONTRAST CLINICAL HISTORY: fever, nausea, vomiting COMPARISON STUDY: CT of the abdomen and pelvis April 14, 2020. TECHNIQUE: Following IV administration of 94 mL of Optiray, axial images of the abdomen and pelvis were obtained from the lung bases to the proximal femurs. Images were reviewed in the axial, sagittal, and coronal planes. IV contrast was administered without complication. Automated exposure control was utilized for the study. A dose lowering technique was utilized adhering to the principles of ALARA. CT DOSE: 474.44 mGy.cm FINDINGS: Prominent paraesophageal lymph nodes are unchanged. These are likely benign. A 3 mm subpleural left lower lobe nodule is unchanged since CT of April 10, 2019. No pneumatosis, free air or portal venous gas is present. Slight nodularity of the liver surface is noted. A 3 cm hypodense lesion within the lateral segment contains a thin septation. This cystic lesion has slightly decreased in size since initial CT and is likely benign. Biliary ductal dilatation has slightly increased since CT of April 14, 2020. Common bile duct measures 1.3 cm is in caliber. This may be due to cholecystectomy. Pancreatic glandular atrophy is again noted. There is no pancreatic ductal dilatation. There is no peripancreatic infiltration. The spleen, adrenal glands are unremarkable. There are bilateral renal parapelvic cysts. Numerous subcentimeter bilateral renal lesions are too small to characterize. There are no urinary calculi. Trace fluid within the pelvis is similar to prior exam. Colonic diverticulosis is noted without evidence for acute diverticulitis. There is no evidence for a bowel obstruction. The appendix is normal. No abdominal or pelvic lymphadenopathy is present. Major vasculature is patent. IMPRESSION: 1. No bowel obstruction. No bowel wall thickening. Colonic diverticulosis without evidence for acute diverticulitis. 2. Slight increase in biliary ductal dilatation. This is likely related to cholecystectomy although could be correlated with liver function tests. 3. Trace fluid within the pelvis, similar to prior CT. 4. Mild bladder wall thickening with adjacent infiltration. This could be correlated with urinalysis. ACT 112: Negative or not required by law. Electronically signed by: Marcus Bolden M.D. 11/06/2021 10:19 AM [facility] Narrative Patient was seen and evaluated as above in room A10. Review was performed of nursing notes and vital signs. I did review pertinent previous visits and patient history. After obtaining a thorough history and physical examination the above work up was performed. Patient has a history of gram-negative bacteremia. This was in April 2020. She notes that today's presentation is similar. I did care for this patient on her previous visit and presentation also appears to be similar. She feels significantly fatigued. Vital signs at the present time are stable. Options of care were discussed with the patient. IV access was established. Labs were drawn. No leukocytosis. Mild anemia noted with hemoglobin of 11.4. Mild hyponatremia 133. Mild hyperglycemia 136. T bili 1.2. Lactate is normal. Troponin within normal range. Pro-Eric elevated at 3.77. Urinalysis reveals what is likely a contaminated sample. Anaplasmosis testing pending. Lyme testing negative. Influenza and COVID-negative. Patient's presentation is similar to previous bacteremic episode. Previous culture and sensitivity reviewed. This was a send out culture with sensitivity to the [facility] laboratories. This was reported April 21, 2020. Patient also notes she had hives from cefepime and this was confirmed upon review of the [facility] record. Chest x-ray as well as abdomen/pelvis CT at this time without emergent etiology/source of the infection I do believe that further evaluation and management inpatient setting is warranted. Blood cultures pending. EKG reveals normal sinus rhythm at a rate of 84 bpm. QTc 441. QRS 80. There is no ST elevation. No significant change compared to previous EKG on April 15, 2020. Patient empirically treated with meropenem. Patient will be admitted for further evaluation and management. Case discussed with the [facility] hospitalist team here. Please refer to further documentation regarding her stay. GCS: 15 In the evaluation and treatment of this patient the following differential diagnoses were entertained: Meningitis, encephalitis, UTI, acute intra-abdominal process, pneumonia, UTI, sepsis, bacteremia, among others. Impression & Plan Fever of unknown origin, Bilateral foot pain, Abdominal discomfort, Nausea vomiting and diarrhea Discharge Plan Visit Data Chief Complaint: Fever Stated Complaint: WEAKNESS,FEVER,VOMITING ED Midlevel Provider: Charly Burden Discharge Problem: Fever of unknown origin, Bilateral foot pain, Abdominal discomfort, Nausea vomiting and diarrhea Patient Disposition: Admitted As Inpatient Condition: Good Forms Stand Alone Forms: [facility] Prescriptions Prescriptions: No Action levothyroxine [Synthroid] 25 mcg tablet 25 mcg PO QAM RF: 0 acetaminophen [Tylenol] 325 mg Tablet 325 mg PO QID PRN (Reason: Pain) RF: 0 cefepime 2 gram recon soln 2 g IV Q12H Qty: 14 RF: 0 ciprofloxacin HCl 500 mg tablet 500 mg PO Q12H Qty: 2 RF: 0 Referrals Referrals: Antonia Harrell MD [Primary Care Provider] -
--- NOTE | 2021-11-06 07:31 | XRay Report ---
XR chest 1V portable CLINICAL HISTORY: Fever. COMPARISON STUDY: 04/15/2020 TECHNIQUE: 1 view of the chest FINDINGS: Single frontal view of the chest demonstrates the cardiomediastinal silhouette to be within normal li mits. The lungs are clear of alveolar opacities. There is no evidence for pleural effusion. There is no evidence for vascular congestion. There is no acute osseous pathology. IMPRESSION: 1. No acute cardiopulmonary disease. ACT 112: Negative or not required by law. Electronically signed by: Jacob Sanford M.D. 11/06/2021 7:30 AM
[2021-11-06 08:19] LABS: Basophils # (auto) 0.01 K/uL (0-0.2); Basophils % (auto) 0.1 %; Hematocrit (blood only) 33.6 % (37-47); Hemoglobin 11.4 g/dL (12.0-16.0); Immature Granulocytes # (auto) 0.02 K/uL (0.00-0.02); Immature Granulocytes % (auto) 0.2 %; Lymphocytes # (auto) 0.59 K/uL (1.2-3.4); Lymphocytes % (auto) 5.9 %; Mean Corpuscular Hemoglobin 29.9 pg (25-34); Mean Corpuscular Hgb Conc 33.9 g/dL (32-36); Mean Corpuscular Volume 88.2 fL (80-100); Mean Platelet Volume 11.5 fL (7.4-10.4); Monocytes # (auto) 0.94 K/uL (0.11-0.59); Monocytes % (auto) 9.4 %; Neutrophils # (auto) 8.42 K/uL (1.4-6.5); Neutrophils % (auto) 84.4 %; Platelet Count 139 K/uL (130-400); RDW Coefficient of Variation 13.8 % (11.5-14.5); RDW Standard Deviation 45.4 fL (36.4-46.3); Red Blood Count 3.81 M/uL (4.2-5.4); White Blood Count 9.98 K/uL (4.8-10.8)
[2021-11-06 08:24] LABS: Appearance Urine Cloudy (Clear); Blood Urine 3+ (Negative); Color Urine Orange; Epithelial Cell Urine Auto >30 /lpf (0-5); Glucose Urine UA Negative (Negative); Ketones Urine 1+ (Negative); Leukocyte Esterase Urine Trace (Negative); Nitrite Urine Negative (Negative); Protein Urine 1+ (Negative); Specific Gravity Urine 1.018 (1.000-1.030); Urobilinogen Urine Negative (Negative)
[2021-11-06 08:28] LABS: Bilirubin Urine 1+ (Negative)
[2021-11-06 08:33] LABS: Albumin Globulin Ratio 1.2 (0.9-2); Albumin Level 3.6 gm/dl (3.4-5.0); BUN Creatinine Ratio 22.4 (10-20); Bilirubin,Total 1.2 mg/dl (0.2-1.0); Calcium 8.6 mg/dl (8.5-10.1); Creatinine Clr Calc Pharmacy 46.6 ml/min; Est GFR (Non-African American) 55.3 ml/min; Potassium 3.5 mmol/L (3.5-5.1); Total Protein 6.6 gm/dl (6.0-8.3)
[2021-11-06 08:37] LABS: Bacteria Urine Automated 2+ (Negative); Mucus Urine Present (None Prsent)
[2021-11-06 08:55] LABS: Influenza A virus by PCR Negative (Neg); Influenza B virus by PCR Negative (Neg); RSV by PCR Negative (Neg); SARS CoV2 RNA(COVID-19) InHosp NEGATIVE (Negative)
[2021-11-06 08:57] LABS: Procalcitonin 3.77 ng/ml (0-0.5)
[2021-11-06 09:03] LABS: Lyme Ab IgG w/WB Rflx Negative (Negative); Lyme Ab IgM w/WB Rflx Negative (Negative)
[2021-11-06] MEDS ORDERED: OPTIRAY 320 100ml IV ONE (10:08)
--- NOTE | 2021-11-06 10:20 | CT Scan Report ---
CT OF THE ABDOMEN AND PELVIS WITH CONTRAST CLINICAL HISTORY: fever, nausea, vomiting COMPARISON STUDY: CT of the abdomen and pelvis April 14, 2020. TECHNIQUE: Following IV administration of 94 mL of Optiray, axial images of the abdomen and pelvis we re obtained from the lung bases to the proximal femurs. Images were reviewed in the axial, sagittal, and coronal planes. IV contrast was administered without complication. Automated exposure control wa s utilized for the study. A dose lowering technique was utilized adhering to the principles of ALARA . CT DOSE: 474.44 mGy.cm FINDINGS: Prominent paraesophageal lymph nodes are unchanged. These are likely benign. A 3 mm subpleu ral left lower lobe nodule is unchanged since CT of April 10, 2019. No pneumatosis, free air or p ortal venous gas is present. Slight nodularity of the liver surface is noted. A 3 cm hypodense lesion within the lateral segment contains a thin septation. This cystic lesion has slightly decreased in s ize since initial CT and is likely benign. Biliary ductal dilatation has slightly increased since CT of April 14, 2020. Common bile duct measures 1.3 cm is in caliber. This may be due to cholecystectom y. Pancreatic glandular atrophy is again noted. There is no pancreatic ductal dilatation. There is no peripancreatic infiltration. The spleen, adrenal glands are unremarkable. There are bilateral renal parapelvic cysts. Numerous subcentimeter bilateral renal lesions are too small to characterize. There are no urinary calculi. Trace fluid within the pelvis is similar to prior exam. Colonic diverticulos is is noted without evidence for acute diverticulitis. There is no evidence for a bowel obstruction. The appendix is normal. No abdominal or pelvic lymphadenopathy is present. Major vasculature is paten t. IMPRESSION: 1. No bowel obstruction. No bowel wall thickening. Colonic diverticulosis without evidence for acute diverticulitis. 2. Slight increase in biliary ductal dilatation. This is likely related to cholecystectomy although c ould be correlated with liver function tests. 3. Trace fluid within the pelvis, similar to prior CT. 4. Mild bladder wall thickening with adjacent infiltration. This could be correlated with urinalysis. ACT 112: Negative or not required by law. Electronically signed by: Marcus Bolden M.D. 11/06/2021 10:19 AM
[2021-11-06] MEDS ORDERED: MEROPENEM CONSULT ACTIVE PRN ×2 (10:34→12:17)
[2021-11-06] MEDS ORDERED: MEROPENEM 500 MG in SYRINGE 0 ML IV STA (10:34)
--- NOTE | 2021-11-06 10:46 | History & Physical Report ---
Date of Service November 06, 2021 Assessment & Plan (1) Abnormal urinalysis: (2) History of bacteremia: (3) Elevated procalcitonin: (4) Generalized weakness: (5) CKD (chronic kidney disease), stage III: (6) Hypothyroidism: (7) Sepsis: Plan: This is a 76-year-old female who has significant past medical history of hypothyroidism, CKD stage III, allergic rhinitis, history of gram-negative bacteremia April/2022 who presents to the ER with complaints of fever, w eakness and vomiting for 2 to 3 days. She does not meet criteria for SIRS or sepsis. 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 in apr 2020, source unclear, possibly Urine hx of Serratia marcescens bacteremia in March 2019 in setting of acute cholecystitis with removal of gallbladder Continue IV meropenem Await urine and blood culture results UA abnormal concerning for infection, CT abdomen pelvis also revealed mild bladder wall thickening Give gentle hydration with KCl due to poor intake Supportive care Clear liquid diet for now, advance as tolerated Hypothyroidism Continue Synthroid CKD stage III Baseline creatinine 1.0 Avoid nephrotoxic agents DVT prophylaxis: Lovenox Dispo: Telemetry, continue IV antibiotics and await blood and urine culture results, likely discharge to home when medically able PCP: Julio Cesar Full code Patient was seen and examined in collaboration with, Dr. Zambrano, please see addendum History of Present Illness Chief Complaint: Fever, weakness and vomiting x 2-3 days. Primary Care Provider: Antonia Harrell MD This is a 76-year-old female who has significant past medical history of hypothyroidism, CKD stage III, allergic rhinitis, history of gram-negative bacteremia April/2022 who presents to the ER with complaints of fever, weakness and vomiting for 2 to 3 days. Of significance in April 2020 patient had similar symptoms and presented to ED. Initially she was discharged home and then called to return due to positive blood culture results. Culture positive for actinobacter. She was seen and evaluated by infectious disease who recommended discharging home on IV cefepime. Throughout her course of IV cefepime she did develop hives. She had been doing well since that hospitalization up until 2 to 3 days ago. She began feeling feverish, fatigued and had intermittent episodes of emesis and diarrhea. Every time she attempted to eat she would vomit. She has been able to tolerate water and toast. She admits to this feeling similar to her prior presentation in April 2020. She has had intermittent fevers with a T-max of 101.4 last evening. She generally feels weak, complains of joint pain specifically in feet, chills, sweats, nausea and significant fatigue. She denies dizziness, lightheadedness, headache, change in vision, neck pain or stiffness, URI symptoms, cough, hemoptysis, chest pain, shortness of breath, abdominal pain, dysuria, increased urgency or frequency with urination, hematuria, melena or hematochezia. She does admit to one episode of diarrhea after vomiting, but nothing persistent. Did not try anything at home. In ED patient remained hemodynamically stable. Lab work significant for hemoglobin 11.4, hematocrit 33.6, sodium 133, GFR 55, glucose 136, total bilirubin 1.2 and procalcitonin 3.77. Urine suspicious for UTI. Lyme and Anaplasma negative. SARS-CoV-2 and influenza negative. Her prior sensitivities were performed at [facility] which was reviewed by ED provider and pharmacist. Due to prior history of allergy to cefepime it was decided to start patient on IV meropenem. She also received IV fluid. Allergies Allergy/AdvReac Type Severity Reaction Status Date / Time cefepime Allergy HIVES Verified 11/06/21 11:12 Home Medications Medication Instructions Recorded Confirmed Type levothyroxine 25 mcg tablet 25 mcg PO QAM 04/10/19 11/06/21 History (Synthroid) Past Med/Surg History Medical History (Updated 11/06/21 @ 16:00 by Barbara Zambrano DO) CKD (chronic kidney disease), stage III Gram-negative bacteremia Hypothyroidism Sensorineural hearing 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 Dr England at [facility] History of colonoscopy History of dilatation and curettage Family History Mother Asthma Father Cancer Prostate cancer Hearing loss Other Diabetes No family history of bleeding disorder Denies family history of Heart disease Hypertension Stroke Social History Smoking Status: Never smoker Hx Alcohol Use: No Hx Substance Use: No Preferred Language: Syrian Communication Ability: Effective Internet Application Developer Required: No Beliefs That Will Affect Care: None marital status: Current Living Situation: Spouse current occupational status: retired Other Information That Helps Us Care for You: No Feels Safe at Home: Yes Safety Concerns: Feels Safe At This Time Assistive Devices: Glasses Review of Systems Review of Systems: All systems reviewed & are unremarkable except as noted in HPI & below Physical Exam Physical Exam: Constitutional: WD/WN, vitals as above, NAD, sitting up in bed, pleasant, conversing easily Head: Normocephalic, Atraumatic Eyes: PERRL, conjunctivae normal, anicteric sclerae ENMT: external ear and nose normal, oropharynx normal Neck: trachea midline, no thyromegaly normal visual inspection Respiratory: normal respiratory effort, lungs clear to auscultation, no wheeze, rales, rhonchi. Normal insp/exp effort, no accessory muscle use Cardiovascular: RRR, no murmur, no edema Vessels: no JVD or carotid bruit Chest: normal inspection of chest Abdomen: normal bowel sounds, soft, nontender, no hepatosplenomegaly Musculoskeletal: no cyanosis or clubbing, extremities motor strength 5/5 Skin: no rashes, warm and dry normal turgor Neurologic: PERRL, EOMI, accommodation nl, no face palsy, no dysarthria CN's II-XI intact bilaterally and moves all extremities Psychiatric: A+Ox3, euthymic affect Lymphatic: no cervical or axillary lymphadenopathy : deferred Results & Data Results & Data ([facility]) Vital Signs (Past 12 Hours) Vital Signs Temp Pulse Pulse Resp BP BP Pulse Ox 11/06/21 09:45 73 18 112/62 96 11/06/21 08:05 82 19 119/60 95 11/06/21 08:04 37.1 C 11/06/21 06:55 37.0 C 91 H 20 112/64 95 Diagnostic Findings Chest X-Ray 11/06/21 07:16 XR chest 1V portable CLINICAL HISTORY: Fever. COMPARISON STUDY: 04/15/2020 TECHNIQUE: 1 view of the chest FINDINGS: Single frontal view of the chest demonstrates the cardiomediastinal silhouette to be within normal limits. The lungs are clear of alveolar opacities. There is no evidence for pleural effusion. There is no evidence for vascular congestion. There is no acute osseous pathology. IMPRESSION: 1. No acute cardiopulmonary disease. ACT 112: Negative or not required by law. Electronically signed by: Jacob Sanford M.D. 11/06/2021 7:30 AM Abdomen/Pelvis CT 11/06/21 07:27 CT OF THE ABDOMEN AND PELVIS WITH CONTRAST CLINICAL HISTORY: fever, nausea, vomiting COMPARISON STUDY: CT of the abdomen and pelvis April 14, 2020. TECHNIQUE: Following IV administration of 94 mL of Optiray, axial images of the abdomen and pelvis were obtained from the lung bases to the proximal femurs. Images were reviewed in the axial, sagittal, and coronal planes. IV contrast was administered without complication. Automated exposure control was utilized for the study. A dose lowering technique was utilized adhering to the principles of ALARA. CT DOSE: 474.44 mGy.cm FINDINGS: Prominent paraesophageal lymph nodes are unchanged. These are likely benign. A 3 mm subpleural left lower lobe nodule is unchanged since CT of April 10, 2019. No pneumatosis, free air or portal venous gas is present. Slight nodularity of the liver surface is noted. A 3 cm hypodense lesion within the lateral segment contains a thin septation. This cystic lesion has slightly decreased in size since initial CT and is likely benign. Biliary ductal dilatation has slightly increased since CT of April 14, 2020. Common bile duct measures 1.3 cm is in caliber. This may be due to cholecystectomy. Pancreatic glandular atrophy is again noted. There is no pancreatic ductal dilatation. There is no peripancreatic infiltration. The spleen, adrenal glands are unremarkable. There are bilateral renal parapelvic cysts. Numerous subcentimeter bilateral renal lesions are too small to characterize. There are no urinary calculi. Trace fluid within the pelvis is similar to prior exam. Colonic diverticulosis is noted without evidence for acute diverticulitis. There is no evidence for a bowel obstruction. The appendix is normal. No abdominal or pelvic lymphadenopathy is present. Major vasculature is patent. IMPRESSION: 1. No bowel obstruction. No bowel wall thickening. Colonic diverticulosis with out evidence for acute diverticulitis. 2. Slight increase in biliary ductal dilatation. This is likely related to cholecystectomy although could be correlated with liver function tests. 3. Trace fluid within the pelvis, similar to prior CT. 4. Mild bladder wall thickening with adjacent infiltration. This could be correlated with urinalysis. ACT 112: Negative or not required by law. Electronically signed by: Marcus Bolden M.D. 11/06/2021 10:19 AM Medications Administered Medication List Sodium Chloride (Nss 1000ml) 1,000 mls @ 125 mls/hr IV .Q8H STA Stop: 11/06/21 15:15 Last Admin: 11/06/21 08:18 Dose: 125 mls/hr Documented by: [id number] Discontinued Medications Ioversol (Optiray 320 100ml) 94 ml IV ONCE ONE Stop: 11/06/21 10:09 Last Admin: 11/06/21 10:00 Dose: 94 ml Documented by: [id number] ECG Rate (beats per minute): 84 Rhythm: normal sinus COVID-19 Results Results COVID-19 Adm Lab Results: RBC 3.81 M/uL (4.2-5.4) L 11/06/21 WBC 9.98 K/uL (4.8-10.8) 11/06/21 Hgb 11.4 g/dL (12.0-16.0) L 11/06/21 Hct 33.6 % (37-47) L 11/06/21 Plt Count 139 K/uL (130-400) 11/06/21 Neutrophils (%) (Auto) 84.4 % 11/06/21 Lymphocytes (%) (Auto) 5.9 % 11/06/21 Monocytes # (Auto) 0.94 K/uL (0.11-0.59) H 11/06/21 Eosinophils # (Auto) 0.00 K/uL (0-0.5) 11/06/21 Immature Granulocyte % (Auto) 0.2 % 11/06/21 Neutrophils # (Auto) 8.42 K/uL (1.4-6.5) H 11/06/21 Lymphocytes # (Auto) 0.59 K/uL (1.2-3.4) L 11/06/21 Monocytes # (Auto) 0.94 K/uL (0.11-0.59) H 11/06/21 Eosinophils # (Auto) 0.00 K/uL (0-0.5) 11/06/21 Basophils # (Auto) 0.01 K/uL (0-0.2) 11/06/21 Immature Granulocyte # (Auto) 0.02 K/uL (0.00-0.02) 11/06/21 Na 133 mmol/L (136-145) L 11/06/21 K 3.5 mmol/L (3.5-5.1) 11/06/21 Cl 101 mmol/L (98-107) 11/06/21 CO2 23 mmol/L (21-32) 11/06/21 Anion Gap 9 (3-11) 11/06/21 BUN 22 mg/dl (6-23) 11/06/21 Creatinine 0.98 mg/dl (0.6-1.2) 11/06/21 BUN/Creatinine Ratio 22.4 (10-20) H 11/06/21 Glucose Level 136 mg/dl (70-99(Fasting)) H 11/06/21 Ca 8.6 mg/dl (8.5-10.1) 11/06/21 Total Bilirubin 1.2 mg/dl (0.2-1.0) H 11/06/21 AST/SGOT 32 U/L (13-39) 11/06/21 ALT/SGPT 33 U/L (7-52) 11/06/21 Alkaline Phosphatase 73 U/L (34-104) 11/06/21 Total Protein 6.6 gm/dl (6.0-8.3) 11/06/21 Albumin 3.6 gm/dl (3.4-5.0) 11/06/21 Globulin 3.0 gm/dl (2.5-4.0) 11/06/21 Albumin/Globulin Ratio 1.2 (0.9-2) 11/06/21 Procalcitonin 3.77 ng/ml (0-0.5) H 11/06/21 COVID-19 PCR NEGATIVE (Negative) 11/06/21 Influenza Virus Type A (PCR) Negative (Neg) 11/06/21 Influenza Virus Type B (PCR) Negative (Neg) 11/06/21 Chest X-Ray 11/06/21 Code Status & VTE Plan Code Status FULL CODE VTE Prophylaxis Plan VTE Prophylaxis will be ordered: Yes Supervising Physician Co-Signing Physician Notes 76-year-old female with a history of gram-negative bacteremia in April 2022 presents to the ER with fever weakness and vomiting for 2 to 3 days. As noted above she reports intermittent fevers, joint pain, chills, diaphoresis and fatigue. Work-up includes a CBC revealing a normal white blood cell count, anemia with baseline H&H (11.4/33.6), BMP within normal limits aside from a sodium 133. Highly sensitive troponin is normal and procalcitonin is 3.77 she appears to have a grossly positive urinalysis for infection however this may be a contaminant with greater than 30 epis noted. She is notably not having urinary symptoms at this time. Lyme is negative with Anaplasma pending although no recent tick exposure. Imaging includes a CT of the abdomen pelvis with contrast revealing trace fluid in the pelvis similar to prior CT mild bladder wall thickening with adjacent filtration. A chest x-ray is clear. On physical exam she appears well-nourished and well-developed with no acute distress. Lungs are clear to auscultation throughout and cardiac auscultation reveals regular rate and rhythm without any murmur gallops or rubs. No peripheral edema is present and extremities are warm and well-perfused. Mucous membranes are moist and there is no overt rash present but there is some small red erythematous areas on her upper and lower lips that are painful. Skin is warm and dry. No new focal neurologic deficits. She was given meropenem in the ER and was started on IV fluids. On the floor she began to feel worse and spiked a temp of 38.5C. She was treated with APAP. Intravenous fluids were switched to LR in setting of worsening tachycardia likely in response to febrile state. Possible urine source concerning for developing sepsis. Blood and urine cultures are pending. Continue broad- spectrum antibiotics and fluid resuscitation we will repeat lactate and labs at this time. DO Juan Manuel
[2021-11-06] MEDS ORDERED: LEVOTHYROXINE SODIUM 25 MCG TABLET PO STA (11:08)
--- NOTE | 2021-11-06 11:08 | Emergency Department Note ---
ED Visit Note I agree with the diagnosis and management decisions and have been personally involved in the case. Pt was treated with IV meropenem due to h/o actinobacter bacteremia. Blood cultures are pending. Patient's case has been referred to the inpatient hospitalist team. Please see Charly Burden PA-C's notes for further details of the history, physical and visit. .
[2021-11-06] MEDS ORDERED: CONSULT PHARMACY STA (12:01)
[2021-11-06] MEDS ORDERED: ONDANSETRON INJ 2 MG/ML 2 ML VIAL IV PRN (12:01)
[2021-11-06] MEDS ORDERED: MAGNESIUM HYDROXIDE SUSP 30 ML UDC PO PRN (12:01)
[2021-11-06] MEDS ORDERED: POLYETHYLENE (MIRALAX) 17 GM PACK PO PRN (12:01)
[2021-11-06] MEDS ORDERED: ACETAMINOPHEN 325 MG TAB PO PRN (12:01)
[2021-11-06] MEDS ORDERED: ALUMINUM/MAGNESIUM SUSP 30 ML UDC PO PRN (12:01)
[2021-11-06] MEDS ORDERED: NSS + 20MEQ KCL 20 MEQ/1,000 ML BAG IV SCH (12:30)
[2021-11-06] MEDS: valACYclovir HCL 500 MG TABLET PO SCH ×2 (12:55→20:36)
--- NOTE | 2021-11-06 15:37 | Electrocardiogram Report ---
Test Reason : Blood Pressure : / mmHG Vent. Rate : 084 BPM Atrial Rate : 084 BPM P-R Int : 146 ms QRS Dur : 080 ms QT Int : 374 ms P-R-T Axes : 027 037 029 degrees QTc Int : 441 ms Normal sinus rhythm Nonspecific ST abnormality Abnormal ECG When compared with ECG of 15-APR-2020 10:14, No significant change was found Confirmed by Mkiel Monteiro ([id number]) on 11/06/2021 3:37:21 PM Referred By: Confirmed By:Mikel Monteiro
[2021-11-06] MEDS: LACTATED RINGER'S 1,000 ML IV SCH ×2 (15:54→23:56)
[2021-11-06 16:19] LABS: Hematocrit (blood only) 32.4 % (37-47); Mean Corpuscular Hemoglobin 29.9 pg (25-34); Mean Platelet Volume 11.2 fL (7.4-10.4); Platelet Count 127 K/uL (130-400); RDW Coefficient of Variation 13.6 % (11.5-14.5); RDW Standard Deviation 44.2 fL (36.4-46.3); Red Blood Count 3.68 M/uL (4.2-5.4)
[2021-11-06 16:47] LABS: BUN Creatinine Ratio 24.4 (10-20); Calcium 8.3 mg/dl (8.5-10.1); Est GFR (Non-African American) 61.2 ml/min; Potassium 3.6 mmol/L (3.5-5.1)
[2021-11-06] MEDS: MEROPENEM 500 MG in SYRINGE 0 ML IV SCH (17:49)
[2021-11-06] MEDS: ENOXAPARIN INJ 40 MG/0.4 ML SYR SQ SCH (21:37)
[2021-11-07] MEDS: MEROPENEM 500 MG in SYRINGE 0 ML IV SCH ×3 (02:59→19:16)
[2021-11-07] MEDS: LEVOTHYROXINE SODIUM 25 MCG TABLET PO SCH (06:22)
[2021-11-07 06:43] LABS: Basophils # (auto) 0.02 K/uL (0-0.2); Basophils % (auto) 0.2 %; Eosinophils # (auto) 0.07 K/uL (0-0.5); Eosinophils % (auto) 0.8 %; Hematocrit (blood only) 34.6 % (37-47); Hemoglobin 11.6 g/dL (12.0-16.0); Immature Granulocytes # (auto) 0.01 K/uL (0.00-0.02); Immature Granulocytes % (auto) 0.1 %; Lymphocytes % (auto) 14.9 %; Mean Corpuscular Hgb Conc 33.5 g/dL (32-36); Mean Corpuscular Volume 89.4 fL (80-100); Mean Platelet Volume 11.7 fL (7.4-10.4); Monocytes # (auto) 1.12 K/uL (0.11-0.59); Monocytes % (auto) 12.8 %; Neutrophils % (auto) 71.2 %; Platelet Count 184 K/uL (130-400); RDW Coefficient of Variation 13.8 % (11.5-14.5); RDW Standard Deviation 45.6 fL (36.4-46.3); Red Blood Count 3.87 M/uL (4.2-5.4); White Blood Count 8.72 K/uL (4.8-10.8)
[2021-11-07 07:18] LABS: Albumin Globulin Ratio 1.1 (0.9-2); Albumin Level 3.4 gm/dl (3.4-5.0); BUN Creatinine Ratio 22.5 (10-20); Bilirubin,Total 0.9 mg/dl (0.2-1.0); Calcium 8.6 mg/dl (8.5-10.1); Creatinine Clr Calc Pharmacy 51.6 ml/min; Est GFR (African American) 71.9 ml/min; Est GFR (Non-African American) 62.1 ml/min; Magnesium 2.3 mg/dl (1.7-2.4); Potassium 3.4 mmol/L (3.5-5.1); Total Protein 6.4 gm/dl (6.0-8.3)
[2021-11-07] MEDS ORDERED: POTASSIUM CHLORIDE CRTAB 20 MEQ TABCR PO STA (08:23)
[2021-11-07] MEDS: SACCHAROMYCES BOULARDII 250 MG CAP PO SCH ×2 (09:58→20:48)
[2021-11-07] MEDS: valACYclovir HCL 500 MG TABLET PO SCH ×2 (09:59→20:48)
--- NOTE | 2021-11-07 12:15 | Hospitalist Progress Note ---
Date of Service November 07, 2021 Assessment & Plan (1) Abnormal urinalysis: (2) History of bacteremia: (3) Elevated procalcitonin: (4) Generalized weakness: (5) CKD (chronic kidney disease), stage III: (6) Hypothyroidism: (7) Sepsis: Plan: This is a 76-year-old female who has significant past medical history of hypothyroidism, CKD stage III, allergic rhinitis, history of gram-negative bacteremia April/2022 who presents to the ER with complaints of fever, w eakness and vomiting for 2 to 3 days. She does not meet criteria for SIRS or sepsis. Gram Negative Bacteremia -Unclear source, patient with no complaint other than weakness and fever. -Patient with history of bacteremia 04/14/20 which ultimately grew Actinobacter, again at that time source was unknown -will continue meropenem -repeat blood cultures tomorrow to document clearance -follow up blood cultures from today -Will get TTE -CT A/P shows bladder wall thickening. 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 -continue valacyclovir x 3 days Sepsis -Sepsis present on admission with fever and tachycardia Hypokalemia -repleted Hyponatremia -improved DVT ppx SQ lovenox Admission and Anticipated Discharge Date Admission Date: November 06, 2021 Subjective Patient feels better today Patient denies having urinary symptoms, cough, diarrhea, pain anywhere in her body, denies IV drug use, denies skin ulcers, denies hardware Physical Exam Physical Exam: Appears stated age, no acute distress, pleasant Respiratory: breathing comfortably on roomair, no wheezing/rhonchi/rales Cardiovascular: regular rate and rhythm, no murmurs/rubs/gallops Gastrointestinal (Abdomen): soft, non tender, non distended Musculoskeletal: no edema Skin: no redness, no bruising, no ulcers noted. ( I did not examine her sacrum, groin or perineum) Neurologic: awake, alert, spontaneously moving extremities Results & Data Results & Data ([facility]) Vital Signs (Past 12 Hours) Vital Signs Temp Pulse Pulse Resp BP Pulse Ox 11/07/21 11:00 36.7 C 66 18 103/67 97 11/07/21 07:26 64 11/07/21 07:00 37.1 C 65 18 100/66 97 11/07/21 03:14 36.5 C 62 18 107/63 98 11/07/21 01:13 65 Laboratory Results Short CBC 11/06/21 11/07/21 Range/Units 16:06 06:19 WBC 8.30 8.72 (4.8-10.8) K/uL Hgb 11.0 L 11.6 L (12.0-16.0) g/dL Hct 32.4 L 34.6 L (37-47) % Plt Count 127 L 184 (130-400) K/uL BMP 11/06/21 11/07/21 16:06 06:19 Sodium 133 L 139 Potassium 3.6 3.4 L Chloride 104 107 Carbon Dioxide 22 27 BUN 22 20 Creatinine 0.90 0.89 Glucose 121 H 102 H Calcium 8.3 L 8.6 Liver Function 11/07/21 Range/Units 06:19 Total Bilirubin 0.9 (0.2-1.0) mg/dl AST 26 (13-39) U/L ALT 29 (7-52) U/L Alkaline Phosphatase 89 (34-104) U/L Albumin 3.4 (3.4-5.0) gm/dl Medications Administered Current Inpatient Medications Acetaminophen (Acetaminophen 325 Mg Tab) 650 mg PO Q4H PRN PRN Reason: Pain or Fever Stop: 12/06/21 12:00 Last Admin: 11/06/21 15:34 Dose: 650 mg Documented by: Al Hydrox/Mg Hydrox/Simethicone (Aluminum/Magnesium Susp 30 Ml Udc) 15 ml PO Q4H PRN PRN Reason: Dyspepsia Stop: 12/06/21 12:00 Enoxaparin Sodium (Enoxaparin Inj 40 Mg/0.4 Ml Syr) 40 mg SQ Q24H GEENA Stop: 12/06/21 21:59 Last Admin: 11/06/21 21:37 Dose: Not Given Documented by: Meropenem 500 mg/ Syringe 10 mls @ 2 mls/min IV Q8H [facility]; Protocol Stop: 11/08/21 18:59 Last Admin: 11/07/21 10:41 Dose: 2 mls/min Documented by: Levothyroxine Sodium (Levothyroxine Sodium 25 Mcg Tablet) 25 mcg PO DAILYBB [facility] Stop: 12/07/21 06:29 Last Admin: 11/07/21 06:22 Dose: 25 mcg Documented by: Magnesium Hydroxide (Magnesium Hydroxide Susp 30 Ml Udc) 30 ml PO Q12H PRN PRN Reason: Constipation Stop: 12/06/21 12:00 Miscellaneous Information (Meropenem Consult Active) 1 ea N/A UD PRN PRN Reason: Consult Stop: 12/06/21 12:16 Ondansetron HCl (Ondansetron Inj 2 Mg/Ml 2 Ml Vial) 4 mg IV Q6H PRN PRN Reason: Nausea Stop: 12/06/21 12:00 Polyethylene Glycol (Polyethylene (Miralax) 17 Gm Pack) 17 gm PO DAILY PRN PRN Reason: Constipation Stop: 12/06/21 12:00 Saccharomyces Boulardii (Saccharomyces Boulardii 250 Mg Cap) 250 mg PO BID [facility] Stop: 12/07/21 08:59 Last Admin: 11/07/21 09:58 Dose: 250 mg Documented by: Valacyclovir HCl (Valacyclovir Hcl 500 Mg Tablet) 500 mg PO BID [facility] Stop: 11/09/21 12:14 Last Admin: 11/07/21 09:59 Dose: 500 mg Documented by:
[2021-11-07] MEDS: ENOXAPARIN INJ 40 MG/0.4 ML SYR SQ SCH (21:42)
[2021-11-08] MEDS: MEROPENEM 500 MG in SYRINGE 0 ML IV SCH ×3 (03:30→17:33)
[2021-11-08] MEDS: LEVOTHYROXINE SODIUM 25 MCG TABLET PO SCH (06:23)
[2021-11-08 07:54] LABS: BUN Creatinine Ratio 23.8 (10-20); Calcium 8.4 mg/dl (8.5-10.1); Creatinine Clr Calc Pharmacy 57.4 ml/min; Est GFR (African American) 81.8 ml/min; Est GFR (Non-African American) 70.6 ml/min; Potassium 3.9 mmol/L (3.5-5.1)
[2021-11-08 08:33] LABS: Hematocrit (blood only) 33.7 % (37-47); Hemoglobin 11.2 g/dL (12.0-16.0); Mean Corpuscular Hemoglobin 29.2 pg (25-34); Mean Corpuscular Hgb Conc 33.2 g/dL (32-36); Mean Corpuscular Volume 87.8 fL (80-100); Mean Platelet Volume 11.5 fL (7.4-10.4); Platelet Count 202 K/uL (130-400); RDW Standard Deviation 45.4 fL (36.4-46.3); Red Blood Count 3.84 M/uL (4.2-5.4); White Blood Count 5.89 K/uL (4.8-10.8)
[2021-11-08] MEDS: valACYclovir HCL 500 MG TABLET PO SCH ×2 (08:46→21:22)
[2021-11-08] MEDS: SACCHAROMYCES BOULARDII 250 MG CAP PO SCH ×2 (08:47→21:22)
--- NOTE | 2021-11-08 13:27 | Hospitalist Progress Note ---
Date of Service November 08, 2021 Assessment & Plan (1) CKD (chronic kidney disease), stage III: (2) Hypothyroidism: (3) Gram-negative bacteremia: Plan: This is a 76-year-old female who has significant past medical history of hypothyroidism, CKD stage III, allergic rhinitis, history of gram-negative bacteremia April/2022 who presents to the ER with complaints of fever, weakness and vomiting for 2 to 3 days. She does not meet criteria for SIRS or sepsis. Gram Negative Bacteremia - Blood clx 11/06 with GNB in 2/2 bottles, repeat blood clx from today pending. - Unclear source- no presenting complaint other than weakness and fever. CT A/P negative other than mild bladder wall thickening with adjacent infiltration but urine clx negative. TTE with no vegetations. No rash. 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 Admission and Anticipated Discharge Date Admission Date: November 06, 2021 Subjective Seen and examined. She feels fine. Denies any new issues. She had multiple questions about the source of bacteremia and the discharge plan. Results & Data Results & Data ([facility]) Vital Signs (Past 12 Hours) Vital Signs Temp Pulse Pulse Resp BP BP Pulse Ox 11/08/21 07:33 37.1 C 63 111/65 96 11/08/21 06:13 66 11/08/21 03:08 36.8 C 63 18 128/75 98 Laboratory Results Short CBC 11/08/21 Range/Units 06:47 WBC 5.89 (4.8-10.8) K/uL Hgb 11.2 L (12.0-16.0) g/dL Hct 33.7 L (37-47) % Plt Count 202 (130-400) K/uL BMP 11/08/21 06:47 Sodium 139 Potassium 3.9 Chloride 109 H Carbon Dioxide 26 BUN 19 Creatinine 0.80 Glucose 96 Calcium 8.4 L Medications Administered Current Inpatient Medications Acetaminophen (Acetaminophen 325 Mg Tab) 650 mg PO Q4H PRN PRN Reason: Pain or Fever Stop: 12/06/21 12:00 Last Admin: 11/06/21 15:34 Dose: 650 mg Documented by: Al Hydrox/Mg Hydrox/Simethicone (Aluminum/Magnesium Susp 30 Ml Udc) 15 ml PO Q4H PRN PRN Reason: Dyspepsia Stop: 12/06/21 12:00 Enoxaparin Sodium (Enoxaparin Inj 40 Mg/0.4 Ml Syr) 40 mg SQ Q24H GEENA Stop: 12/06/21 21:59 Last Admin: 11/07/21 21:42 Dose: Not Given Documented by: Meropenem 500 mg/ Syringe 10 mls @ 2 mls/min IV Q6H [facility]; Protocol Stop: 11/22/21 17:59 Levothyroxine Sodium (Levothyroxine Sodium 25 Mcg Tablet) 25 mcg PO DAILYBB [facility] Stop: 12/07/21 06:29 Last Admin: 11/08/21 06:23 Dose: 25 mcg Documented by: Magnesium Hydroxide (Magnesium Hydroxide Susp 30 Ml Udc) 30 ml PO Q12H PRN PRN Reason: Constipation Stop: 12/06/21 12:00 Miscellaneous Information (Meropenem Consult Active) 1 ea N/A UD PRN PRN Reason: Consult Stop: 12/06/21 12:16 Ondansetron HCl (Ondansetron Inj 2 Mg/Ml 2 Ml Vial) 4 mg IV Q6H PRN PRN Reason: Nausea Stop: 12/06/21 12:00 Polyethylene Glycol (Polyethylene (Miralax) 17 Gm Pack) 17 gm PO DAILY PRN PRN Reason: Constipation Stop: 12/06/21 12:00 Saccharomyces Boulardii (Saccharomyces Boulardii 250 Mg Cap) 250 mg PO BID [facility] Stop: 12/07/21 08:59 Last Admin: 11/08/21 08:47 Dose: 250 mg Documented by: Valacyclovir HCl (Valacyclovir Hcl 500 Mg Tablet) 500 mg PO BID [facility] Stop: 11/09/21 12:14 Last Admin: 11/08/21 08:46 Dose: 500 mg Documented by:
[2021-11-08] MEDS: ENOXAPARIN INJ 40 MG/0.4 ML SYR SQ SCH (21:23)
[2021-11-09] MEDS: MEROPENEM 500 MG in SYRINGE 0 ML IV SCH ×4 (00:35→18:34)
[2021-11-09] MEDS: LEVOTHYROXINE SODIUM 25 MCG TABLET PO SCH (06:05)
[2021-11-09] MEDS: valACYclovir HCL 500 MG TABLET PO SCH (08:26)
[2021-11-09] MEDS: SACCHAROMYCES BOULARDII 250 MG CAP PO SCH ×2 (08:26→21:13)
[2021-11-09 08:33] LABS: Hematocrit (blood only) 34.7 % (37-47); Hemoglobin 11.4 g/dL (12.0-16.0); Mean Corpuscular Hgb Conc 32.9 g/dL (32-36); Mean Corpuscular Volume 88.3 fL (80-100); Platelet Count 236 K/uL (130-400); RDW Standard Deviation 45.5 fL (36.4-46.3); Red Blood Count 3.93 M/uL (4.2-5.4); White Blood Count 5.73 K/uL (4.8-10.8)
[2021-11-09 08:50] LABS: BUN Creatinine Ratio 28.2 (10-20); Calcium 8.7 mg/dl (8.5-10.1); Creatinine Clr Calc Pharmacy 58.8 ml/min; Est GFR (African American) 84.4 ml/min; Est GFR (Non-African American) 72.8 ml/min; Potassium 4.2 mmol/L (3.5-5.1)
[2021-11-09] MEDS ORDERED: POLYETHYLENE (MIRALAX) 17 GM PACK PO ONE (11:07)
[2021-11-09] MEDS: DOCUSATE SODIUM 100 MG CAP PO SCH ×2 (11:29→21:13)
--- NOTE | 2021-11-09 11:45 | Hospitalist Progress Note ---
Date of Service November 09, 2021 Assessment & Plan (1) CKD (chronic kidney disease), stage III: (2) Hypothyroidism: (3) Gram-negative bacteremia: Plan: This is a 76-year-old female who has significant past medical history of hypothyroidism, CKD stage III, allergic rhinitis, history of gram-negative bacteremia April/2022 who presents to the ER with complaints of fever, weakness and vomiting for 2 to 3 days. She does not meet criteria for SIRS or sepsis. Gram Negative Bacteremia - Blood clx 11/06 with Pantoea agglomerans and GNB, pansensitive except for Ampicillin; repeat blood clx 11/08 NTD. - Currently on meropenem- will continue until all GNB speciated. - Seen by ID and recommendations noted. Will need 2 week ABx course until 11/20 and OP GI evaluation for possible gut translocation. Herpes lesion upper lip -patient gets them intermittently - on valacyclovir x 3 days Sepsis on admission- resolved Hypokalemia- resolved Hyponatremia- resolved DVT ppx- SQ lovenox Dispo- pending final blood clx results. Anticipate discharge tomorrow if blood clx final. Admission and Anticipated Discharge Date Admission Date: November 06, 2021 Subjective No new issues. Asking for a laxative as she has not had a good bowel movement since admission. She was seen by ID yesterday. She is asking when is the earliest she would be able to go home. Physical Exam Physical Exam: General: Lying comfortably in bed, not in distress, on room air HEENT: EOMI, JAZMÍN, MMM Chest: Clear breath sounds bilaterally, no wheezes or crackles CVS: Regular rate and rhythm, normal heart sounds, no murmur Abdomen: Soft, non tender, not distended, normal bowel sounds Neuro: Awake, alert, oriented, conversing well, non focal Extremities: No cyanosis, clubbing or edema Results & Data Results & Data ([facility]) Vital Signs (Past 12 Hours) Vital Signs Temp Pulse Pulse Resp BP BP Pulse Ox 11/09/21 11:09 36.6 C 62 19 109/69 97 11/09/21 07:23 71 11/09/21 06:47 36.3 C L 64 18 98/61 L 96 11/09/21 04:25 36.7 C 65 18 111/64 98 Laboratory Results Short CBC 11/09/21 Range/Units 07:55 WBC 5.73 (4.8-10.8) K/uL Hgb 11.4 L (12.0-16.0) g/dL Hct 34.7 L (37-47) % Plt Count 236 (130-400) K/uL BMP 11/09/21 07:55 Sodium 138 Potassium 4.2 Chloride 106 Carbon Dioxide 28 BUN 22 Creatinine 0.78 Glucose 103 H Calcium 8.7 Medications Administered Current Inpatient Medications Acetaminophen (Acetaminophen 325 Mg Tab) 650 mg PO Q4H PRN PRN Reason: Pain or Fever Stop: 12/06/21 12:00 Last Admin: 11/06/21 15:34 Dose: 650 mg Documented by: Al Hydrox/Mg Hydrox/Simethicone (Aluminum/Magnesium Susp 30 Ml Udc) 15 ml PO Q4H PRN PRN Reason: Dyspepsia Stop: 12/06/21 12:00 Docusate Sodium (Docusate Sodium 100 Mg Cap) 100 mg PO BID [facility] Stop: 12/09/21 11:14 Last Admin: 11/09/21 11:29 Dose: 100 mg Documented by: Enoxaparin Sodium (Enoxaparin Inj 40 Mg/0.4 Ml Syr) 40 mg SQ Q24H [facility] Stop: 12/06/21 21:59 Last Admin: 11/08/21 21:23 Dose: Not Given Documented by: Meropenem 500 mg/ Syringe 10 mls @ 2 mls/min IV Q6H [facility]; Protocol Stop: 11/22/21 17:59 Last Admin: 11/09/21 06:05 Dose: 2 mls/min Documented by: Levothyroxine Sodium (Levothyroxine Sodium 25 Mcg Tablet) 25 mcg PO DAILYBB [facility] Stop: 12/07/21 06:29 Last Admin: 11/09/21 06:05 Dose: 25 mcg Documented by: Magnesium Hydroxide (Magnesium Hydroxide Susp 30 Ml Udc) 30 ml PO Q12H PRN PRN Reason: Constipation Stop: 12/06/21 12:00 Miscellaneous Information (Meropenem Consult Active) 1 ea N/A UD PRN PRN Reason: Consult Stop: 12/06/21 12:16 Ondansetron HCl (Ondansetron Inj 2 Mg/Ml 2 Ml Vial) 4 mg IV Q6H PRN PRN Reason: Nausea Stop: 12/06/21 12:00 Polyethylene Glycol (Polyethylene (Miralax) 17 Gm Pack) 17 gm PO DAILY PRN PRN Reason: Constipation Stop: 12/06/21 12:00 Saccharomyces Boulardii (Saccharomyces Boulardii 250 Mg Cap) 250 mg PO BID [facility] Stop: 12/07/21 08:59 Last Admin: 11/09/21 08:26 Dose: 250 mg Documented by: Valacyclovir HCl (Valacyclovir Hcl 500 Mg Tablet) 500 mg PO BID [facility] Stop: 11/09/21 12:14 Last Admin: 11/09/21 08:26 Dose: 500 mg Documented by:
[2021-11-09] MEDS: ENOXAPARIN INJ 40 MG/0.4 ML SYR SQ SCH ×2 (21:14→21:18)
[2021-11-10] MEDS: MEROPENEM 500 MG in SYRINGE 0 ML IV SCH ×2 (01:01→05:20)
[2021-11-10] MEDS: LEVOTHYROXINE SODIUM 25 MCG TABLET PO SCH (05:21)
[2021-11-10] MEDS: SACCHAROMYCES BOULARDII 250 MG CAP PO SCH (08:10)
[2021-11-10] MEDS: DOCUSATE SODIUM 100 MG CAP PO SCH (08:10)
[2021-11-10 08:59] LABS: Basophils # (auto) 0.03 K/uL (0-0.2); Basophils % (auto) 0.4 %; Eosinophils % (auto) 2.5 %; Hematocrit (blood only) 34.8 % (37-47); Hemoglobin 11.4 g/dL (12.0-16.0); Immature Granulocytes # (auto) 0.03 K/uL (0.00-0.02); Immature Granulocytes % (auto) 0.4 %; Lymphocytes # (auto) 1.88 K/uL (1.2-3.4); Mean Corpuscular Hemoglobin 29.5 pg (25-34); Mean Corpuscular Hgb Conc 32.8 g/dL (32-36); Mean Corpuscular Volume 89.9 fL (80-100); Monocytes # (auto) 0.37 K/uL (0.11-0.59); Monocytes % (auto) 4.5 %; Neutrophils # (auto) 5.65 K/uL (1.4-6.5); Neutrophils % (auto) 69.2 %; Platelet Count 273 K/uL (130-400); RDW Standard Deviation 45.9 fL (36.4-46.3); Red Blood Count 3.87 M/uL (4.2-5.4); White Blood Count 8.16 K/uL (4.8-10.8)
[2021-11-10] MEDS ORDERED: CIPROFLOXACIN 500 MG TAB PO SCH (09:00)
[2021-11-10] MEDS ORDERED: POLYETHYLENE (MIRALAX) 17 GM PACK PO SCH (09:00)
[2021-11-10 09:18] LABS: Calcium 8.9 mg/dl (8.5-10.1); Creatinine Clr Calc Pharmacy 60.8 ml/min; Est GFR (African American) 88.5 ml/min; Est GFR (Non-African American) 76.3 ml/min; Potassium 3.9 mmol/L (3.5-5.1)
--- NOTE | 2021-11-10 14:52 | Discharge Summary ---
Date of Service November 10, 2021 Admission HPI Per Admitting Provider This is a 76-year-old female who has significant past medical history of hypothyroidism, CKD stage III, allergic rhinitis, history of gram-negative bacteremia April/2022 who presents to the ER with complaints of fever, weakness and vomiting for 2 to 3 days. Of significance in April 2020 patient had similar symptoms and presented to ED. Initially she was discharged home and then called to return due to positive blood culture results. Culture positive for actinobacter. She was seen and evaluated by infectious disease who recommended discharging home on IV cefepime. Throughout her course of IV cefepime she did develop hives. She had been doing well since that hospitalization up until 2 to 3 days ago. She began feeling feverish, fatigued and had intermittent episodes of emesis and diarrhea. Every time she attempted to eat she would vomit. She has been able to tolerate water and toast. She admits to this feeling similar to her prior presentation in April 2020. She has had intermittent fevers with a T-max of 101.4 last evening. She generally feels weak, complains of joint pain specifically in feet, chills, sweats, nausea and significant fatigue. She denies dizziness, lightheadedness, headache, change in vision, neck pain or stiffness, URI symptoms, cough, hemoptysis, chest pain, shortness of breath, abdominal pain, dysuria, increased urgency or frequency with urination, hematuria, melena or hematochezia. She does admit to one episode of diarrhea after vomiting, but nothing persistent. Did not try anything at home. In ED patient remained hemodynamically stable. Lab work significant for hemoglobin 11.4, hematocrit 33.6, sodium 133, GFR 55, glucose 136, total bilirubin 1.2 and procalcitonin 3.77. Urine suspicious for UTI. Lyme and Anaplasma negative. SARS-CoV-2 and influenza negative. Her prior sensitivities were performed at [facility] which was reviewed by ED provider and pharmacist. Due to prior history of allergy to cefepime it was decided to start patient on I V meropenem. She also received IV fluid. Admission Exam Per Admitting Provider Constitutional: WD/WN, vitals as above, NAD, sitting up in bed, pleasant, conversing easily Head: Normocephalic, Atraumatic Eyes: PERRL, conjunctivae normal, anicteric sclerae ENMT: external ear and nose normal, oropharynx normal Neck: trachea midline, no thyromegaly normal visual inspection Respiratory: normal respiratory effort, lungs clear to auscultation, no wheeze, rales, rhonchi. Normal insp/exp effort, no accessory muscle use Cardiovascular: RRR, no murmur, no edema Vessels: no JVD or carotid bruit Chest: normal inspection of chest Abdomen: normal bowel sounds, soft, nontender, no hepatosplenomegaly Musculoskeletal: no cyanosis or clubbing, extremities motor strength 5/5 Skin: no rashes, warm and dry normal turgor Neurologic: PERRL, EOMI, accommodation nl, no face palsy, no dysarthria CN's II-XI intact bilaterally and moves all extremities Psychiatric: A+Ox3, euthymic affect Lymphatic: no cervical or axillary lymphadenopathy : deferred Principal Diagnosis Gram negative bacteremia Discharge Exam General: Sitting in chair, comfortable, on room air HEENT: EOMI, JAZMÍN, MMM Chest: Clear breath sounds bilaterally, no wheezes or crackles CVS: Regular rate and rhythm, normal heart sounds, no murmur Abdomen: Soft, non tender, not distended, normal bowel sounds Neuro: Awake, alert, oriented, conversing well, non focal Extremities: No cyanosis, clubbing or edema Ambulating independently Discharge Data Allergies Allergy/AdvReac Type Severity Reaction Status Date / Time cefepime Allergy HIVES Verified 11/06/21 11:12 Consultations 11/06/21 10:34 ED Decision to Admit Stat 11/07/21 12:30 Consult Infectious Diseases Routine Ordered Studies 11/06/21 07:27 CT abd pelvis IV con only Stat Hospital Course (1) Gram-negative bacteremia: This is a 76-year-old female who has significant past medical history of hypothy roidism, CKD stage III, allergic rhinitis, history of gram-negative bacteremia April/2022 who presents to the ER with complaints of fever, weakness and vomiting for 2 to 3 days. Gram Negative Bacteremia - Blood clx 11/06 with Pantoea agglomerans; repeat blood clx 11/08 negative at 48 hrs - On meropenem since admission-> being discharged on cipro bid for total of 2 weeks from negative clx of 11/08. QTc normal, renal function normal. Discussed with ID prior to discharge who agrees. - Recommended OP GI evaluation for possible gut translocation. Herpes lesion upper lip- s/p valacyclovir x 3 days Hypokalemia- resolved Hyponatremia- resolved Constipation- resolved with bowel regimen. Total Time Total Time Spent Total Time Spent (In Minutes): 31 Discharge Plan Discharge Items Patient Disposition: Home - Self-Care Reason For Visit: FEVER Discharge Diagnosis: Gram negative bacteremia (Pantoea agglomerans) Condition on Discharge: Good Activity: Resume your previous activity Non-emergency contact: Primary Care Provider Call non-emergency contact if: you have any medication questions Follow-up/Referrals: Antonia Harrell MD [Primary Care Provider] - (Date & Time 11/14/2021 2:20 PM Provider Antonia Harrell MD Department Family Medicine [facility] ) Diet: Regular Addtl Attending Provider Instructions: Complete the antibiotic course with cipro 1 tab every 12 hours Follow up with GI as your GI tract might be the source of your bacteria in blood Pending Studies at Discharge: No Stand-Alone Forms: My [facility], Smoking Cessation Medications and DC Order Prescriptions: New ciprofloxacin HCl 500 mg Tablet 500 mg PO BID 2 Days Qty: 14 RF: 0 Continued levothyroxine [Synthroid] 25 mcg tablet 25 mcg PO QAM RF: 0 Discharge Orders: Discharge Order (Routine); Ordered 11/10/21 Ordered By: Stevan Shah Admission Data Admit Date/Time: 11/06/21 16:03 Attending Provider: Stevan Shah Admit Provider: Barbara Zambrano Primary Care Provider: Antonia Harrell Other Providers: Barbara Zambrano ; Neftali Weinstein ; Ambrose Marina ; Chaz Guevara I. ; Ramos Mcmillan II ; Daphney Nails ; Jayjay Charlton ; Manjit Eid Other Interventions: Discharge Summary Assessment (RN) Last Done: 11/10/21 09:28
== END 2021-11-10 14:17 | disposition home or self-care (01) | DRG 872 ==
LOC: 2N 06:51 → ED 06:51 → 2N 11:56 → SUATTDRO 16:03 → 2N 11-08 01:23

== ENCOUNTER 2022-02-23 18:48 | Inpatient (IN) ==
[2022-02-23] MEDS ORDERED: SODIUM CHLORIDE 0.9% 1000ML 1,000 ML IV ONE ×2 (19:15→23:01)
[2022-02-23] MEDS ORDERED: MEROPENEM 500 MG in SYRINGE 0 ML IV STA (19:17)
--- NOTE | 2022-02-23 19:20 | Emergency Department Note ---
Impression & Plan Bacteremia, Acute febrile illness ED Provider Note Name: JUNO BARTLETT Age: 76 Sex: F Arrives Via: Walk-In Informant: Patient ED Provider: Thomas Adler MD Chief Complaint: Fever Impression: As per impressions above Medical Decision Making: Pleasant 76-year-old female arrives for evaluation following positive blood cultures from visit last evening. Patient having nonspecific fevers and fatigue over the last 24 to 48 hours. They have continued since getting home. Today the blood cultures grew up gram-negative bacilli which PCR showed as Enterobacter. Patient returns to ER for repeat evaluation. She is not overtly septic appearing she has a soft abdomen clear lungs and is not currently febrile or tachycardic or hypotensive. I did obtain lactic acid which is normal. Along with repeat blood cultures. She was given meropenem which was previously used for the patient. Patient stable and hospitalist consulted for further management. I will note she did have an episode of this several months ago of uncertain etiology as well. Prior Medical Record and Triage/Nursing Notes reviewed by Me Additional history obtained from chart Differentials:Viral syndrome, otitis, pharyngitis, pneumonia, influenza, men ingitis, urinary tract infection, sepsis, bacteremia, as well as other pathologies. Vital Signs: reviewed and remarkable for no significant abnormalities Interventions: Normal saline bolus, meropenem IV Labs:Reviewed and remarkable for no significant abnormalities Imaging:Reviewed chest x-ray and CT of abdomen pelvis from earlier last evening [facility] Plan: Disposition:Hospitalization. Condition: Good History of Present Illness:76-year-old female arrives for evaluation of bacteremia. Patient notes few days of worsening fevers fatigue and some abdominal cramping. She noted it was similar to previous bacteremia from October 2021 of uncertain etiology at that time either. She was seen last night in the ER at extensive work-up including blood cultures and a CAT scan of the abdomen pelvis. CAT scan at that time showed some hydro but no specific other concerning findings and her urine did not show an infection. The blood cultures grew out gram-negative bacilli which PCR reviewed return to Enterobacter and she was called and told to come to the ER. Patient states she just has not been feeling any better today. She did have a fever around 5 PM though has not taken any Tylenol or Motrin. Has not been on any recent antibiotics. Denies any ches t pain, shortness of breath, syncope, headache, neck pain, neck stiffness, current abdominal pain, back pain, urinary symptoms, diarrhea, leg swelling or other concerning signs or symptoms. She does feel she is already had an endoscopy as well as an ultrasound of the heart. She does not think she had an actual colonoscopy which was planned to further evaluate why she had had this episode of bacteremia few months ago. Nothing makes better or worse. ROS: See above HPI for pertinent positives & negatives. A total of 10 systems reviewed and were otherwise negative. Past Medical History:See Below Past Surgical History:See Below Family History:See Below Social History:See Below Home Medications:See Below Allergies:cefepime Vitals:Blood Pressure: 99557, Pulse 89, RR 16, T 37C, O2 97% on RA Physical Exam: GENERAL: Patient is tired appearing and in minimal distress. EYES: No scleral icterus, unremarkable pupils. ENT: Mucous membranes moist, no nasal congestion. NECK: No masses appreciated, nomeningismus, trachea is midline. RESPIRATORY: No dyspnea. Clear to auscultation and equal bilaterally. No wheeze, no rhonchi. CARDIOVASCULAR: Regular rate and rhythm.No murmurs, rubs, gallops appreciated. GASTROINTESTINAL: Abdomen soft, non-tender, no peritonitis.Bowel sounds positive.No masses appreciated. BACK: No midline tenderness, no CVA tenderness EXTREMITIES: Normal motion all extremities, no cyanosis, no edema. NEUROLOGIC: Alert and oriented, no acute motor or sensory deficits, no focal weakness, cranial nerves grossly intact. SKIN: No rash, no jaundice, no diaphoresis. PSYCH: Appropriate GCS: 15 ED Course: Times/Reassessments: Stable comfortable and agreeable to hospitalization. Thomas Adler MD Past Med/Surg History Medical History (Updated 02/24/22 @ 18:08 by Thomas Adler MD) CKD (chronic kidney disease), stage III Gram-negative bacteremia Hypothyroidism Sensorineural hearing 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 Dr England at [facility] History of colonoscopy History of dilatation and curettage Family History Mother Asthma Father Cancer Prostate cancer Hearing loss Other Diabetes No family history of bleeding disorder Denies family history of Heart disease Hypertension Stroke Social History Smoking Status: Never smoker Hx Alcohol Use: No Hx Substance Use: No Preferred Language: Romansh Communication Ability: Effective Bottle Carrier Required: No Beliefs That Will Affect Care: None marital status: Current Living Situation: Spouse current occupational status: retired How many Children do You have: 2 Feels Safe at Home: Yes Safety Concerns: Feels Safe At This Time Assistive Devices: Glasses and Hearing Aid - Bilateral Allergies Allergies Allergy/AdvReac Type Severity Reaction Status Date / Time cefepime Allergy Intermediate HIVES Verified 02/23/22 23:21 Home Meds Home Medications Medication Instructions Recorded Confirmed levothyroxine 25 mcg tablet 25 mcg PO QAM 04/10/19 02/23/22 (Synthroid) Results & Data (ED) Vital Signs Vital Signs - 24 hr 02/23/22 18:53 02/23/22 19:31 02/23/22 20:23 Temperature 37 C Temperature Source Temporal Artery Scan Pulse Rate 89 Pulse Rate [Right Finger] 78 Pulse Rhythm [Right Finger] Regular Respiratory Rate 16 17 17 Respiratory Effort / Characteristics Non-Labored Non-Labored Respiratory Depth Normal Normal Normal Respiratory Pattern Regular Blood Pressure 121/62 Blood Pressure [Left Arm] 134/67 130/57 L Blood Pressure Mean 81 Blood Pressure Mean [Left Arm] 89 81 Blood Pressure Position [Left Arm] Lying Pulse Oximetry 97 98 Oxygen Delivery Method Room Air Room Air Room Air Sepsis Recent Fever Within 48 Hours No Sepsis New/Unexplained Change in Mental Status No Sepsis Action Taken by Nursing No Action Required 02/23/22 22:00 Temperature Temperature Source Pulse Rate Pulse Rate [Right Finger] Pulse Rhythm [Right Finger] Regular Respiratory Rate 16 Respiratory Effort / Characteristics Non-Labored Respiratory Depth Respiratory Pattern Regular Blood Pressure Blood Pressure [Left Arm] 112/59 L Blood Pressure Mean Blood Pressure Mean [Left Arm] 76 Blood Pressure Position [Left Arm] Pulse Oximetry 95 Oxygen Delivery Method Room Air Sepsis Recent Fever Within 48 Hours Sepsis New/Unexplained Change in Mental Status Sepsis Action Taken by Nursing Laboratory Data Result diagrams: 02/24/22 07:19 02/24/22 07:19 Lab Results 02/23/22 02/23/22 02/23/22 Range/Units 19:05 19:15 19:24 WBC (4.8-10.8) K/ul RBC (3.93-5.22) M/uL Hgb (12.0-16.0) g/dl Hct (34.1-44.9) % MCV (80.0-100.0) fL MCH (25.0-34.0) pg MCHC (32.0-36.0) g/dL RDW Std Deviation (36.4-46.3) fL RDW Coeff of Marlon (11.5-14.5) % Plt Count (130-400) K/uL MPV (9.4-12.3) fL Immature Gran % (Auto) % Neut % (Auto) % Lymph % (Auto) % [place] % (Auto) % Eos % (Auto) % Baso % (Auto) % Neut # (Auto) (1.4-6.5) K/uL Lymph # (Auto) (1.2-3.4) K/uL [place] # (Auto) (0.24-0.82) K/uL Eos # (Auto) (0-0.50) K/uL Baso # (Auto) (0-0.2) K/uL Immature Gran # (Auto) (0.00-0.02) K/uL PT (9.0-12.0) Seconds INR (0.9-1.1) Sodium (136-145) mmol/L Potassium (3.5-5.1) mmol/L Chloride (98-107) mmol/L Carbon Dioxide (21-32) mmol/L Anion Gap (3-11) BUN (6-23) mg/dl Creatinine (0.6-1.2) mg/dl Est Cr Clr Drug Dosing ml/min Est GFR ( Amer) ml/min Est GFR (Non-Af Amer) ml/min BUN/Creatinine Ratio (10-20) Glucose (70-99(Fasting)) mg/dl Lactate (0.4-2.0) mmol/L Calcium (8.5-10.1) mg/dl Magnesium (1.7-2.4) mg/dl Total Bilirubin (0.2-1.0) mg/dl Direct Bilirubin AST (13-39) U/L ALT (7-52) U/L Alkaline Phosphatase (34-104) U/L Troponin I High Sens (0-14) pg/ml Total Protein (6.0-8.3) gm/dl Albumin (3.4-5.0) gm/dl Lipase (11-82) U/L Procalcitonin Urine Color Dark Yellow Urine Appearance Clear (Clear) Urine pH 5.0 (4.5-7.5) Ur Specific [place] 1.020 (1.000-1.030) Urine Protein 1+ H (Negative) Urine Glucose (UA) Negative (Negative) Urine Ketones Trace H (Negative) Urine Blood 3+ H (Negative) Urine Nitrite Negative (Negative) Urine Bilirubin Negative (Negative) Urine Urobilinogen Negative (Negative) Ur Leukocyte Esterase 1+ H (Negative) Urine WBC (Auto) 1-5 (0-5) /hpf Urine RBC (Auto) 5-10 H (0-4) /hpf U Hyaline Cast (Auto) 1-5 (0-5) /lpf U Epithel Cells (Auto) >30 H (0-5) /lpf Urine Bacteria (Auto) Negative (Negative) Urine Mucus Present A (None Prsent) Enterobacterales (PCR) DETECTED A (NotDetected) E. cloacae complex PCR DETECTED A (NotDetected) SARS-CoV-2, RNA, NAAT NEGATIVE (NEGATIVE) mcr-1 Colistin Res Gene PCR Not Detected (NotDetected) blaIMP Car res Gene PCR Not Detected (NotDetected) KPC-Carbap Res Gene PCR Not Detected (NotDetected) blaNDM Car Res Gene PCR Not Detected (NotDetected) OXA-48 Carbapenem Resis Gene (PCR) Not Detected (NotDetected) blaVIM Car Res Gene PCR Not Detected (NotDetected) CTX-M Gene Resistance (PCR) Not Detected (NotDetected) Bld Cult ID Panel PCR See PCR Comment (NotDetected) 02/23/22 02/23/22 02/23/22 Range/Units 19:31 19:31 19:31 WBC 9.86 (4.8-10.8) K/ul RBC 3.89 L (3.93-5.22) M/uL Hgb 11.3 L (12.0-16.0) g/dl Hct 33.9 L (34.1-44.9) % MCV 87.1 (80.0-100.0) fL MCH 29.0 (25.0-34.0) pg MCHC 33.3 (32.0-36.0) g/dL RDW Std Deviation 43.3 (36.4-46.3) fL RDW Coeff of Marlon 13.6 (11.5-14.5) % Plt Count 164 (130-400) K/uL MPV 11.3 (9.4-12.3) fL Immature Gran % (Auto) 0.4 % Neut % (Auto) 81.0 % Lymph % (Auto) 7.6 % [place] % (Auto) 10.6 % Eos % (Auto) 0.1 % Baso % (Auto) 0.3 % Neut # (Auto) 7.98 H (1.4-6.5) K/uL Lymph # (Auto) 0.75 L (1.2-3.4) K/uL [place] # (Auto) 1.05 H (0.24-0.82) K/uL Eos # (Auto) 0.01 (0-0.50) K/uL Baso # (Auto) 0.03 (0-0.2) K/uL Immature Gran # (Auto) 0.04 H (0.00-0.02) K/uL PT 10.9 (9.0-12.0) Seconds INR 1.0 (0.9-1.1) Sodium (136-145) mmol/L Potassium (3.5-5.1) mmol/L Chloride (98-107) mmol/L Carbon Dioxide (21-32) mmol/L Anion Gap (3-11) BUN (6-23) mg/dl Creatinine (0.6-1.2) mg/dl Est Cr Clr Drug Dosing ml/min Est GFR ( Amer) ml/min Est GFR (Non-Af Amer) ml/min BUN/Creatinine Ratio (10-20) Glucose (70-99(Fasting)) mg/dl Lactate 0.9 (0.4-2.0) mmol/L Calcium (8.5-10.1) mg/dl Magnesium (1.7-2.4) mg/dl Total Bilirubin (0.2-1.0) mg/dl Direct Bilirubin AST (13-39) U/L ALT (7-52) U/L Alkaline Phosphatase (34-104) U/L Troponin I High Sens (0-14) pg/ml Total Protein (6.0-8.3) gm/dl Albumin (3.4-5.0) gm/dl Lipase (11-82) U/L Procalcitonin Urine Color Urine Appearance (Clear) Urine pH (4.5-7.5) Ur Specific [place] (1.000-1.030) Urine Protein (Negative) Urine Glucose (UA) (Negative) Urine Ketones (Negative) Urine Blood (Negative) Urine Nitrite (Negative) Urine Bilirubin (Negative) Urine Urobilinogen (Negative) Ur Leukocyte Esterase (Negative) Urine WBC (Auto) (0-5) /hpf Urine RBC (Auto) (0-4) /hpf U Hyaline Cast (Auto) (0-5) /lpf U Epithel Cells (Auto) (0-5) /lpf Urine Bacteria (Auto) (Negative) Urine Mucus (None Prsent) Enterobacterales (PCR) (NotDetected) E. cloacae complex PCR (NotDetected) SARS-CoV-2, RNA, NAAT (NEGATIVE) mcr-1 Colistin Res Gene PCR (NotDetected) blaIMP Car res Gene PCR (NotDetected) KPC-Carbap Res Gene PCR (NotDetected) blaNDM Car Res Gene PCR (NotDetected) OXA-48 Carbapenem Resis Gene (PCR) (NotDetected) blaVIM Car Res Gene PCR (NotDetected) CTX-M Gene Resistance (PCR) (NotDetected) Bld Cult ID Panel PCR (NotDetected) 02/23/22 02/23/22 02/23/22 Range/Units 19:31 19:31 22:30 WBC (4.8-10.8) K/ul RBC (3.93-5.22) M/uL Hgb (12.0-16.0) g/dl Hct (34.1-44.9) % MCV (80.0-100.0) fL MCH (25.0-34.0) pg MCHC (32.0-36.0) g/dL RDW Std Deviation (36.4-46.3) fL RDW Coeff of Marlon (11.5-14.5) % Plt Count (130-400) K/uL MPV (9.4-12.3) fL Immature Gran % (Auto) % Neut % (Auto) % Lymph % (Auto) % [place] % (Auto) % Eos % (Auto) % Baso % (Auto) % Neut # (Auto) (1.4-6.5) K/uL Lymph # (Auto) (1.2-3.4) K/uL [place] # (Auto) (0.24-0.82) K/uL Eos # (Auto) (0-0.50) K/uL Baso # (Auto) (0-0.2) K/uL Immature Gran # (Auto) (0.00-0.02) K/uL PT (9.0-12.0) Seconds INR (0.9-1.1) Sodium 132 L (136-145) mmol/L Potassium 3.8 (3.5-5.1) mmol/L Chloride 100 (98-107) mmol/L Carbon Dioxide 23 (21-32) mmol/L Anion Gap 9 (3-11) BUN 17 (6-23) mg/dl Creatinine 0.92 (0.6-1.2) mg/dl Est Cr Clr Drug Dosing 50.1 ml/min Est GFR ( Amer) 69.1 ml/min Est GFR (Non-Af Amer) 59.6 ml/min BUN/Creatinine Ratio 18.5 (10-20) Glucose 164 H (70-99(Fasting)) mg/dl Lactate (0.4-2.0) mmol/L Calcium 8.7 (8.5-10.1) mg/dl Magnesium 1.9 (1.7-2.4) mg/dl Total Bilirubin 0.9 (0.2-1.0) mg/dl Direct Bilirubin TNP 0.2 AST 19 (13-39) U/L ALT 13 (7-52) U/L Alkaline Phosphatase 56 (34-104) U/L Troponin I High Sens 5.4 (0-14) pg/ml Total Protein 7.0 (6.0-8.3) gm/dl Albumin 4.0 (3.4-5.0) gm/dl Lipase 12 (11-82) U/L Procalcitonin Cancelled Urine Color Urine Appearance (Clear) Urine pH (4.5-7.5) Ur Specific [place] (1.000-1.030) Urine Protein (Negative) Urine Glucose (UA) (Negative) Urine Ketones (Negative) Urine Blood (Negative) Urine Nitrite (Negative) Urine Bilirubin (Negative) Urine Urobilinogen (Negative) Ur Leukocyte Esterase (Negative) Urine WBC (Auto) (0-5) /hpf Urine RBC (Auto) (0-4) /hpf U Hyaline Cast (Auto) (0-5) /lpf U Epithel Cells (Auto) (0-5) /lpf Urine Bacteria (Auto) (Negative) Urine Mucus (None Prsent) Enterobacterales (PCR) (NotDetected) E. cloacae complex PCR (NotDetected) SARS-CoV-2, RNA, NAAT (NEGATIVE) mcr-1 Colistin Res Gene PCR (NotDetected) blaIMP Car res Gene PCR (NotDetected) KPC-Carbap Res Gene PCR (NotDetected) blaNDM Car Res Gene PCR (NotDetected) OXA-48 Carbapenem Resis Gene (PCR) (NotDetected) blaVIM Car Res Gene PCR (NotDetected) CTX-M Gene Resistance (PCR) (NotDetected) Bld Cult ID Panel PCR (NotDetected) 02/23/22 Range/Units 22:30 WBC (4.8-10.8) K/ul RBC (3.93-5.22) M/uL Hgb (12.0-16.0) g/dl Hct (34.1-44.9) % MCV (80.0-100.0) fL MCH (25.0-34.0) pg MCHC (32.0-36.0) g/dL RDW Std Deviation (36.4-46.3) fL RDW Coeff of Marlon (11.5-14.5) % Plt Count (130-400) K/uL MPV (9.4-12.3) fL Immature Gran % (Auto) % Neut % (Auto) % Lymph % (Auto) % [place] % (Auto) % Eos % (Auto) % Baso % (Auto) % Neut # (Auto) (1.4-6.5) K/uL Lymph # (Auto) (1.2-3.4) K/uL [place] # (Auto) (0.24-0.82) K/uL Eos # (Auto) (0-0.50) K/uL Baso # (Auto) (0-0.2) K/uL Immature Gran # (Auto) (0.00-0.02) K/uL PT (9.0-12.0) Seconds INR (0.9-1.1) Sodium (136-145) mmol/L Potassium (3.5-5.1) mmol/L Chloride (98-107) mmol/L Carbon Dioxide (21-32) mmol/L Anion Gap (3-11) BUN (6-23) mg/dl Creatinine (0.6-1.2) mg/dl Est Cr Clr Drug Dosing ml/min Est GFR ( Amer) ml/min Est GFR (Non-Af Amer) ml/min BUN/Creatinine Ratio (10-20) Glucose (70-99(Fasting)) mg/dl Lactate (0.4-2.0) mmol/L Calcium (8.5-10.1) mg/dl Magnesium (1.7-2.4) mg/dl Total Bilirubin (0.2-1.0) mg/dl Direct Bilirubin AST (13-39) U/L ALT (7-52) U/L Alkaline Phosphatase (34-104) U/L Troponin I High Sens (0-14) pg/ml Total Protein (6.0-8.3) gm/dl Albumin (3.4-5.0) gm/dl Lipase (11-82) U/L Procalcitonin 1.08 H Urine Color Urine Appearance (Clear) Urine pH (4.5-7.5) Ur Specific [place] (1.000-1.030) Urine Protein (Negative) Urine Glucose (UA) (Negative) Urine Ketones (Negative) Urine Blood (Negative) Urine Nitrite (Negative) Urine Bilirubin (Negative) Urine Urobilinogen (Negative) Ur Leukocyte Esterase (Negative) Urine WBC (Auto) (0-5) /hpf Urine RBC (Auto) (0-4) /hpf U Hyaline Cast (Auto) (0-5) /lpf U Epithel Cells (Auto) (0-5) /lpf Urine Bacteria (Auto) (Negative) Urine Mucus (None Prsent) Enterobacterales (PCR) (NotDetected) E. cloacae complex PCR (NotDetected) SARS-CoV-2, RNA, NAAT (NEGATIVE) mcr-1 Colistin Res Gene PCR (NotDetected) blaIMP Car res Gene PCR (NotDetected) KPC-Carbap Res Gene PCR (NotDetected) blaNDM Car Res Gene PCR (NotDetected) OXA-48 Carbapenem Resis Gene (PCR) (NotDetected) blaVIM Car Res Gene PCR (NotDetected) CTX-M Gene Resistance (PCR) (NotDetected) Bld Cult ID Panel PCR (NotDetected) Administered Medications Enoxaparin Sodium (Enoxaparin Inj 40 Mg/0.4 Ml Syr) 40 mg SQ QAM [facility] Stop: 03/26/22 08:59 Last Admin: 02/24/22 08:19 Dose: Not Given Documented By: JERAMIE Aztreonam 2,000 mg/ Dextrose 110 mls @ 100 mls/hr IV Q8H [facility]; Protocol Stop: 03/10/22 03:59 Last Infusion: 02/24/22 13:38 Dose: 0 mls/hr Documented By: Admin: 02/24/22 12:22 Dose: 100 mls/hr Documented By: Infusion: 02/24/22 06:01 Dose: 0 mls/hr Documented By: Admin: 02/24/22 04:47 Dose: 100 mls/hr Documented By: CLARISSA Levothyroxine Sodium (Levothyroxine Sodium 25 Mcg Tablet) 25 mcg PO DAILYBB [facility] Stop: 03/26/22 06:29 Last Admin: 02/24/22 05:52 Dose: 25 mcg Documented By: CLARISSA Polyethylene Glycol (Polyethylene (Miralax) 17 Gm Pack) 17 gm PO Q12H PRN PRN Reason: Constipation Stop: 03/26/22 17:53 Last Admin: 02/24/22 18:07 Dose: 17 gm Documented By: JERAMIE Discontinued Medications Sodium Chloride (Nss 1000ml) 1,000 mls @ 999 mls/hr IV .[id number] ONE Stop: 02/23/22 20:15 Last Infusion: 02/23/22 21:15 Dose: 0 mls/hr Documented By: Admin: 02/23/22 20:14 Dose: 999 mls/hr Documented By: VAP Meropenem 500 mg/ Syringe 10 mls @ 2 mls/min IV NOW STA; Protocol Stop: 02/23/22 19:21 Last Admin: 02/23/22 20:14 Dose: 2 mls/min Documented By: VAP Sodium Chloride (Nss 1000ml) 1,000 mls @ 60 mls/hr IV .[id number] Stop: 02/24/22 15:40 Last Admin: 02/24/22 01:12 Dose: 60 mls/hr Documented By: KW Discharge Plan Visit Data Chief Complaint: Infection Stated Complaint: BLOOD INFECTION ED Provider: Thomas Adler Discharge Problem: Bacteremia, Acute febrile illness Patient Disposition: Admitted As Inpatient Discharge Instructions Interventions: ED Discharge Assessment Last Done: 02/24/22 00:28
[2022-02-23 19:31] LABS: Appearance Urine Clear (Clear); Bacteria Urine Automated Negative (Negative); Bilirubin Urine Negative (Negative); Blood Urine 3+ (Negative); Color Urine Dark Yellow; Epithelial Cell Urine Auto >30 /lpf (0-5); Glucose Urine UA Negative (Negative); Ketones Urine Trace (Negative); Leukocyte Esterase Urine 1+ (Negative); Nitrite Urine Negative (Negative); Protein Urine 1+ (Negative); Urobilinogen Urine Negative (Negative)
[2022-02-23 19:45] LABS: Basophils # (auto) 0.03 K/uL (0-0.2); Basophils % (auto) 0.3 %; Eosinophils # (auto) 0.01 K/uL (0-0.50); Eosinophils % (auto) 0.1 %; Hematocrit (blood only) 33.9 % (34.1-44.9); Hemoglobin 11.3 g/dl (12.0-16.0); Immature Granulocytes # (auto) 0.04 K/uL (0.00-0.02); Immature Granulocytes % (auto) 0.4 %; Lymphocytes # (auto) 0.75 K/uL (1.2-3.4); Lymphocytes % (auto) 7.6 %; Mean Corpuscular Hgb Conc 33.3 g/dL (32.0-36.0); Mean Corpuscular Volume 87.1 fL (80.0-100.0); Mean Platelet Volume 11.3 fL (9.4-12.3); Monocytes # (auto) 1.05 K/uL (0.24-0.82); Monocytes % (auto) 10.6 %; Neutrophils # (auto) 7.98 K/uL (1.4-6.5); Platelet Count 164 K/uL (130-400); RDW Coefficient of Variation 13.6 % (11.5-14.5); RDW Standard Deviation 43.3 fL (36.4-46.3); Red Blood Count 3.89 M/uL (3.93-5.22); White Blood Count 9.86 K/ul (4.8-10.8)
[2022-02-23 19:48] LABS: Mucus Urine Present (None Prsent)
[2022-02-23 19:55] LABS: Prothrombin Time 10.9 Seconds (9.0-12.0)
[2022-02-23 20:11] LABS: Alanine Aminotransferase 13 U/L (7-52); Alkaline Phosphatase 56 U/L (34-104); Anion Gap 9 (3-11); Aspartate Aminotransferase 19 U/L (13-39); BUN Creatinine Ratio 18.5 (10-20); Bilirubin,Total 0.9 mg/dl (0.2-1.0); Blood Urea Nitrogen 17 mg/dl (6-23); Calcium 8.7 mg/dl (8.5-10.1); Carbon Dioxide 23 mmol/L (21-32); Chloride 100 mmol/L (98-107); Creatinine Clr Calc Pharmacy 50.1 ml/min; Est GFR (African American) 69.1 ml/min; Est GFR (Non-African American) 59.6 ml/min; Glucose 164 mg/dl (70-99(Fasting)); Lipase 12 U/L (11-82); Magnesium 1.9 mg/dl (1.7-2.4); Potassium 3.8 mmol/L (3.5-5.1); Sodium 132 mmol/L (136-145)
[2022-02-23 20:14] LABS: Troponin I High Sensitivity 5.4 pg/ml (0-14)
--- NOTE | 2022-02-23 22:56 | History & Physical Report ---
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 Lovenox subcu Full code Text document was generated using Mevvy voice recognition software. It may contain grammatical or spelling errors. Kindly contact undersigned for clarification of any documentation item in question. History of Present Illness Chief Complaint: Abnormal blood work Primary Care Provider: Antonia Harrell MD History obtained from patient and records. Medical history significant for recurrent gram-negative bacteremia, hypothyroidism. Last [facility] confinement October 2021 for recurrent gram-negative bacteremia (third episode). Pantoea agglomerans on CS. Patient has previously grown Serratia marcescens and Acinetobacter baumannii Patient discharged on 2-week Cipro course after receiving meropenem inpatient. Outpatient GI evaluation recommended to rule out gut translocation as risk factor for recurrent gram-negative bacteremia. Outpatient GI provider recommended EGD/EUS with liver biopsy, colonoscopy and checking liver serologies. Patient underwent upper endoscopy outpatient last month. EGD showed small hiatal hernia. EUS did not show significant ampulla pathology. CBD dilated. Fatty liver infiltration noted. Left lobe liver with cyst. Pancreatic parenchymal abnorm alities consisting of atrophy, hyperechoic strands and hyperechoic foci noted. Pancreatic body cyst without worrisome features. Patient waiting for colonoscopy scheduled. Yesterday, patient noted fever chills with nausea/vomiting symptoms. No abdominal pain, no dysuria symptoms. Generalized weakness. Symptoms reminiscent of bacteremic fracture as per patient. Patient consulted ER yesterday. CT abdomen pelvis results as follows: 1. No acute intra-abdominal or intrapelvic abnormality. 2. Bilateral renal sinus cysts with pelviectasis is unchanged from the comparison study. No urolith or hydronephrosis. 3. Partial distention of the urinary bladder with mild wall thickening. Correlate with urinalysis. 4. Cholecystectomy with unchanged biliary ductal dilation, likely postsurgical. 5. No bowel obstruction. UA WBC 1-5 Patient discharged on Ciprofloxacin course. Gram-negative rods later grew on 2 bottles of blood cultures drawn during ER visit. Patient requested to return to ER for evaluation/management of bacteremia. Meropenem administered at the ER. Medical History as above Surgical History : Cholecystectomy, D&C Family History : DM, breast cancer, asthma Personal/Social history : Non-smoker, no EtOH intake, retired schoolteacher Allergies Allergy/AdvReac Type Severity Reaction Status Date / Time cefepime Allergy Intermediate HIVES Verified 02/23/22 23:21 Home Medications Medication Instructions Recorded Confirmed Type levothyroxine 25 mcg tablet 25 mcg PO QAM 04/10/19 02/23/22 History (Synthroid) Past Med/Surg History Medical History (Updated 02/24/22 @ 03:24 by Daren Mc MD) CKD (chronic kidney disease), stage III Gram-negative bacteremia Hypothyroidism Sensorineural hearing 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 Dr England at [facility] History of colonoscopy History of dilatation and curettage Family History Mother Asthma Father Cancer Prostate cancer Hearing loss Other Diabetes No family history of bleeding disorder Denies family history of Heart disease Hypertension Stroke Social History Smoking Status: Never smoker Hx Alcohol Use: No Hx Substance Use: No Preferred Language: Syriac Communication Ability: Effective Imaging Assistant Required: No Beliefs That Will Affect Care: None marital status: Current Living Situation: Spouse current occupational status: retired How many Children do You have: 2 Feels Safe at Home: Yes Safety Concerns: Feels Safe At This Time Assistive Devices: Glasses and Hearing Aid - Bilateral Review of Systems Review of Systems: As per HPI, all other systems reviewed and negative Physical Exam Physical Exam: GENERAL: Comfortable, pleasant, slightly hard of hearing, no respiratory distress SKIN: Pallor, warm HEENT: Bespectacled, pale palpebral conjunctivae, no ptosis, dry buccal mucosa NECK : Supple, no tenderness CHEST : CTA, no tenderness HEART : RRR, no obvious murmurs ABDOMEN: Some distention, nontender EXTREMITIES : No LE swelling/tenderness, no other conspicuous deformities noted NEUROLOGIC : Coherent, no facial asymmetry, no other gross focality Results & Data Results & Data ([facility]) Vital Signs (Past 12 Hours) Vital Signs Temp Pulse Pulse Resp BP BP Pulse Ox 02/23/22 22:00 16 112/59 L 95 02/23/22 20:23 78 17 130/57 L 98 02/23/22 19:31 17 134/67 02/23/22 18:53 37 C 89 16 121/62 97 O2 Del Method 02/23/22 22:00 Room Air 02/23/22 20:23 Room Air 02/23/22 19:31 Room Air 02/23/22 18:53 Room Air Laboratory Results Laboratory Results WBC 9.86 K/ul (4.8-10.8) 02/23/22 19:31 RBC 3.89 M/uL (3.93-5.22) L 02/23/22 19:31 Hgb 11.3 g/dl (12.0-16.0) L 02/23/22 19:31 Hct 33.9 % (34.1-44.9) L 02/23/22 19:31 MCV 87.1 fL (80.0-100.0) 02/23/22 19: MCH 29.0 pg (25.0-34.0) 02/23/22 19: MCHC 33.3 g/dL (32.0-36.0) 02/23/22 19:31 RDW Std Deviation 43.3 fL (36.4-46.3) 02/23/22 19: RDW Coeff of Marlon 13.6 % (11.5-14.5) 02/23/22 19:31 Plt Count 164 K/uL (130-400) 02/23/22 19:31 MPV 11.3 fL (9.4-12.3) 02/23/22 19:31 Immature Gran % (Auto) 0.4 % 02/23/22 19:31 Neut % (Auto) 81.0 % 02/23/22 19:31 Lymph % (Auto) 7.6 % 02/23/22 19: Wood % (Auto) 10.6 % 02/23/22 19: Eos % (Auto) 0.1 % 02/23/22 19:31 Baso % (Auto) 0.3 % 02/23/22 19:31 Neut # (Auto) 7.98 K/uL (1.4-6.5) H 02/23/22 19:31 Lymph # (Auto) 0.75 K/uL (1.2-3.4) L 02/23/22 19:31 Wood # (Auto) 1.05 K/uL (0.24-0.82) H 02/23/22 19:31 Eos # (Auto) 0.01 K/uL (0-0.50) 02/23/22 19:31 Baso # (Auto) 0.03 K/uL (0-0.2) 02/23/22 19: Immature Gran # (Auto) 0.04 K/uL (0.00-0.02) H 02/23/22 19:31 PT 10.9 Seconds (9.0-12.0) 02/23/22 19: INR 1.0 (0.9-1.1) 02/23/22 19:31 Sodium 132 mmol/L (136-145) L 02/23/22 19:31 Potassium 3.8 mmol/L (3.5-5.1) 02/23/22 19: Chloride 100 mmol/L (98-107) 02/23/22 19: Carbon Dioxide 23 mmol/L (21-32) 02/23/22 19:31 Anion Gap 9 (3-11) 02/23/22 19:31 BUN 17 mg/dl (6-23) 02/23/22 19: Creatinine 0.92 mg/dl (0.6-1.2) 02/23/22 19:31 Est Cr Clr Drug Dosing 50.1 ml/min 02/23/22 19:31 Est GFR ( Amer) 69.1 ml/min 02/23/22 19:31 Est GFR (Non-Af Amer) 59.6 ml/min 02/23/22 19:31 BUN/Creatinine Ratio 18.5 (10-20) 02/23/22 19:31 Glucose 164 mg/dl (70-99(Fasting)) H 02/23/22 19:31 Lactate 0.9 mmol/L (0.4-2.0) 02/23/22 19: Calcium 8.7 mg/dl (8.5-10.1) 02/23/22 19: Magnesium 1.9 mg/dl (1.7-2.4) 02/23/22 19: Total Bilirubin 0.9 mg/dl (0.2-1.0) 02/23/22 19:31 Direct Bilirubin TNP 02/23/22 19: AST 19 U/L (13-39) 02/23/22: ALT 13 U/L (7-52) 02/23/22 19: Alkaline Phosphatase 56 U/L (34-104) 02/23/22 19: Troponin I High Sens 5.4 pg/ml (0-14) 02/23/22: Total Protein 7.0 gm/dl (6.0-8.3) 02/23/22: Albumin 4.0 gm/dl (3.4-5.0) 02/23/22: Lipase 12 U/L (11-82) 02/23/22 19:31 Procalcitonin Cancelled 02/23/22 19:31 Urine Color Dark Yellow 02/23/22 19:05 Urine Appearance Clear (Clear) 02/23/22 19:05 Urine pH 5.0 (4.5-7.5) 02/23/22 19:05 Ur Specific [place] 1.020 (1.000-1.030) 02/23/22 19:05 Urine Protein 1+ (Negative) H 02/23/22 19:05 Urine Glucose (UA) Negative (Negative) 02/23/22 19:05 Urine Ketones Trace (Negative) H 02/23/22 19:05 Urine Blood 3+ (Negative) H 02/23/22 19:05 Urine Nitrite Negative (Negative) 02/23/22 19:05 Urine Bilirubin Negative (Negative) 02/23/22 19:05 Urine Urobilinogen Negative (Negative) 02/23/22 19:05 Ur Leukocyte Esterase 1+ (Negative) H 02/23/22 19:05 Urine WBC (Auto) 1-5 /hpf (0-5) 02/23/22 19:05 Urine RBC (Auto) 5-10 /hpf (0-4) H 02/23/22 19:05 U Hyaline Cast (Auto) 1-5 /lpf (0-5) 02/23/22 19:05 U Epithel Cells (Auto) >30 /lpf (0-5) H 02/23/22 19:05 Urine Bacteria (Auto) Negative (Negative) 02/23/22 19:05 Urine Mucus Present (None Prsent) A 02/23/22 19:05 SARS-CoV-2, RNA, NAAT NEGATIVE (NEGATIVE) 02/23/22 19:15
[2022-02-24] MEDS ORDERED: IBUPROFEN 200 MG TAB PO PRN (01:11)
[2022-02-24] MEDS ORDERED: ACETAMINOPHEN 325 MG TAB PO PRN (01:11)
[2022-02-24] MEDS ORDERED: PROMETHAZINE HCL 12.5 MG in SODIUM CHLORIDE 0.9% 50 ML IV PRN (01:11)
[2022-02-24] MEDS: AZTREONAM 2,000 MG in DEXTROSE 5% 100 ML IV SCH ×3 (04:47→19:58)
[2022-02-24] MEDS: LEVOTHYROXINE SODIUM 25 MCG TABLET PO SCH (05:52)
[2022-02-24 07:31] LABS: Basophils # (auto) 0.02 K/uL (0-0.2); Basophils % (auto) 0.3 %; Eosinophils # (auto) 0.05 K/uL (0-0.50); Eosinophils % (auto) 0.7 %; Hematocrit (blood only) 31.9 % (34.1-44.9); Hemoglobin 10.5 g/dl (12.0-16.0); Immature Granulocytes # (auto) 0.03 K/uL (0.00-0.02); Immature Granulocytes % (auto) 0.4 %; Lymphocytes # (auto) 1.05 K/uL (1.2-3.4); Lymphocytes % (auto) 15.4 %; Mean Corpuscular Hemoglobin 29.5 pg (25.0-34.0); Mean Corpuscular Hgb Conc 32.9 g/dL (32.0-36.0); Mean Corpuscular Volume 89.6 fL (80.0-100.0); Mean Platelet Volume 11.1 fL (9.4-12.3); Monocytes # (auto) 0.87 K/uL (0.24-0.82); Monocytes % (auto) 12.7 %; Neutrophils # (auto) 4.82 K/uL (1.4-6.5); Neutrophils % (auto) 70.5 %; Platelet Count 141 K/uL (130-400); RDW Coefficient of Variation 13.3 % (11.5-14.5); RDW Standard Deviation 43.8 fL (36.4-46.3); Red Blood Count 3.56 M/uL (3.93-5.22); White Blood Count 6.84 K/ul (4.8-10.8)
[2022-02-24 07:52] LABS: BUN Creatinine Ratio 16.5 (10-20); Calcium 8.1 mg/dl (8.5-10.1); Creatinine Clr Calc Pharmacy 49.1 ml/min; Est GFR (African American) 76.1 ml/min; Est GFR (Non-African American) 65.6 ml/min; Potassium 3.4 mmol/L (3.5-5.1)
[2022-02-24] MEDS: ENOXAPARIN INJ 40 MG/0.4 ML SYR SQ SCH (08:19)
--- NOTE | 2022-02-24 09:25 | Hospitalist Progress Note ---
Date of Service February 24, 2022 Assessment & Plan (1) Gram-negative bacteremia: Plan: Recurrent gram-negative bacteremia (4th episode) Likely enteric etiology with current gram negative enteric pathogen being isolated in the blood and vomiting, however, actual source is unclear. Patient still has to go for colonoscopy as part of GI work-up to rule out gut translocation as potential etiology Cont Aztreonam ID consult pending . Hypothyroidism, chronic, stable. Cont Synthroid per home regimen. DVT prophylaxis. Lovenox subcu Full code Barbara Zambrano DO [facility] Hospitalist Admission and Anticipated Discharge Date Admission Date: February 23, 2022 Subjective 76-year-old female with recurrent bacteremia. She initially had cholecystitis in 2018 and underwent a laparoscopic cholecystectomy. At that time she had Serratia marcescens bacteremia and was treated. She was then admitted to [facility] in April 2020 for vomiting fevers and chills with blood cultures positive for Acinetobacter. She was placed on cefepime for total of 14 days. No obvious source was found. She was again admitted in October 2021 for weakness fever and vomiting and blood cultures positive for panacea. She was placed on ciprofloxacin for 7 days after several days of meropenem in the hospital. She now presents again with worsening fevers fatigue and some abdominal cramping and blood cultures are currently positive for Enterobacter cloacae which is a gram- negative enteric pathogen. She has been placed on aztreonam. Notably, she is scheduled for outpatient GI endoscopy out of concern for translocation of bacteria from her GI tract which may be causing recurrent bacteremia. Today she is reporting improvement generally since starting the Aztreonam. No further vomiting and she is tolerating PO No fevers or chills Ambulating Review of Systems Review of Systems: All systems were reviewed and negative except as indicated in subjective above. Physical Exam Physical Exam: CONSTITUTIONAL: WNWD, vitals as above, generally well- appearing, NAD EYES: normal conjunctivae, no scleral icterus ENT: external ear and nose normal, MMM NECK: trachea midline RESPIRATORY: clear to auscultation bilaterally except for trace rales at bases of lungs bilaterally, no crackles or wheezes, normal respiratory effort CARDIOVASCULAR: regular rate and rhythm, S1 and 2 heard without murmurs, gallops or rubs, no JVD, no peripheral edema CHEST: inspection of chest was normal GASTROINTESTINAL: soft, nontender, ND, no guarding MUSCULOSKELETAL: strength 5/5 throughout, head is normocephalic and atraumatic SKIN: warm and dry NEUROLOGIC: CN 2-12 grossly intact, no sensory deficit, normal cognition, normal speech, no tremor PSYCHIATRIC: alert cooperative and oriented to person, place and time. Euthymic mood, makes good eye contact, language grossly intact, recent and remote memory grossly intact. Results & Data Results & Data ([facility]) Vital Signs (Past 12 Hours) Vital Signs Temp Pulse Pulse Resp BP BP Pulse Ox 02/24/22 07:48 36.8 C 66 16 104/64 98 02/24/22 00:50 37.4 C 85 16 138/73 97 02/24/22 00:28 37.5 C 83 20 143/78 H 97 02/23/22 22:00 16 112/59 L 95 O2 Del Method 02/24/22 07:48 Room Air 02/24/22 00:50 Room Air 02/24/22 00:28 Room Air 02/23/22 22:00 Room Air Laboratory Results Short CBC 02/23/22 02/24/22 Range/Units 19:31 07:19 WBC 9.86 6.84 (4.8-10.8) K/ul Hgb 11.3 L 10.5 L (12.0-16.0) g/dl Hct 33.9 L 31.9 L (34.1-44.9) % Plt Count 164 141 (130-400) K/uL BMP 02/23/22 02/24/22 19:31 07:19 Sodium 132 L 136 Potassium 3.8 3.4 L Chloride 100 106 Carbon Dioxide 23 25 BUN 17 14 Creatinine 0.92 0.85 Glucose 164 H 152 H Calcium 8.7 8.1 L Liver Function 02/23/22 02/23/22 Range/Units 19:31 22:30 Total Bilirubin 0.9 (0.2-1.0) mg/dl Direct Bilirubin TNP 0.2 AST 19 (13-39) U/L ALT 13 (7-52) U/L Alkaline Phosphatase 56 (34-104) U/L Albumin 4.0 (3.4-5.0) gm/dl Urine 02/23/22 Range/Units 19:05 Urine Color Dark Yellow Urine Appearance Clear (Clear) Urine pH 5.0 (4.5-7.5) Ur Specific [place] 1.020 (1.000-1.030) Urine Protein 1+ H (Negative) Urine Glucose (UA) Negative (Negative) Medications Administered Current Inpatient Medications Acetaminophen (Acetaminophen 325 Mg Tab) 650 mg PO Q4H PRN PRN Reason: pain/fever Stop: 03/26/22 01:10 Enoxaparin Sodium (Enoxaparin Inj 40 Mg/0.4 Ml Syr) 40 mg SQ QAM COUNTS INCLUDE 234 BEDS AT THE [facility] Stop: 03/26/22 08:59 Last Admin: 02/24/22 08:19 Dose: Not Given Sodium Chloride (Nss 1000ml) 1,000 mls @ 60 mls/hr IV .[id number] ONE Stop: 02/24/22 15:40 Last Admin: 02/24/22 01:12 Dose: 60 mls/hr Promethazine HCl 12.5 mg/ (Sodium Chloride) 50.5 mls @ 202 mls/hr IV Q6H PRN PRN Reason: Nausea And Vomiting Stop: 03/26/22 01:10 Aztreonam 2,000 mg/ Dextrose 110 mls @ 100 mls/hr IV Q8H COUNTS INCLUDE 234 BEDS AT THE [facility]; Protocol Stop: 03/10/22 03:59 Last Infusion: 02/24/22 06:01 Dose: Infused Ibuprofen (Ibuprofen 200 Mg Tab) 200 mg PO Q6H PRN PRN Reason: Mild Pain Stop: 03/26/22 01:10 Levothyroxine Sodium (Levothyroxine Sodium 25 Mcg Tablet) 25 mcg PO DAILYBB COUNTS INCLUDE 234 BEDS AT THE [facility] Stop: 03/26/22 06:29 Last Admin: 02/24/22 05:52 Dose: 25 mcg
[2022-02-24 11:50] LABS: A calco-baum cmplx NotReported Not Detected (NotDetected); Bact fragilis Not Reported Not Detected (NotDetected); C auris Not Reported Not Detected (NotDetected); CTX-M Resistant Gene Not Detected (NotDetected); Calbicans Not Reported Not Detected (NotDetected); Candida glabrata Not Reported Not Detected (NotDetected); Candida krusei Not Reported Not Detected (NotDetected); Cneoformans/gatti Not Reported Not Detected (NotDetected); Cparapsilosis Not Reported Not Detected (NotDetected); Ctropicalis Not Reported Not Detected (NotDetected); E cloacae compx Not Reported DETECTED (NotDetected); Efaecalis Not Reported Not Detected (NotDetected); Efaecium Not Reported Not Detected (NotDetected); Enterobacterales DETECTED (NotDetected); Enterobacterales Not Reported DETECTED (NotDetected); Escherichia coli Not Reported Not Detected (NotDetected); H influenzae Not Reported Not Detected (NotDetected); IMP Resistant Gene Not Detected (NotDetected); K aerogenes Not Reported Not Detected (NotDetected); KPC Resistant Gene Not Detected (NotDetected); Koxytoca Not Reported Not Detected (NotDetected); Kpneumoniae grp Not Reported Not Detected (NotDetected); Lmonocyt Not Reported Not Detected (NotDetected); N meningitidis Not Reported Not Detected (NotDetected); NDM Resistant Gene Not Detected (NotDetected); OXA 48 Like Resistant Gene Not Detected (NotDetected); P aeruginosa Not Reported Not Detected (NotDetected); Proteus spp Not Reported Not Detected (NotDetected); Salmonella spp Not Reported Not Detected (NotDetected); Smarcescens Not Reported Not Detected (NotDetected); Staph lugdunensis Not Reported Not Detected (NotDetected); Staph spp. Not Reported Not Detected (NotDetected); Staphaureus Not Reported Not Detected (NotDetected); Staphepi Not Reported Not Detected (NotDetected); Stenmaltophilia Not Reported Not Detected (NotDetected); Strep agal(GrpB) Not Reported Not Detected (NotDetected); Strep pneum Not Reported Not Detected (NotDetected); Strep pyog (GrpA) Not Reported Not Detected (NotDetected); Strep spp Not Reported Not Detected (NotDetected); VIM Resistant Gene Not Detected (NotDetected); mcr-1 Colistin Resistant Gene Not Detected (NotDetected)
[2022-02-24 12:03] LABS: Enterobacter cloacae complex DETECTED (NotDetected)
[2022-02-24] MEDS: POLYETHYLENE (MIRALAX) 17 GM PACK PO PRN (18:07)
[2022-02-25] MEDS: AZTREONAM 2,000 MG in DEXTROSE 5% 100 ML IV SCH ×3 (04:59→20:51)
[2022-02-25] MEDS: LEVOTHYROXINE SODIUM 25 MCG TABLET PO SCH (05:00)
[2022-02-25 06:24] LABS: Hematocrit (blood only) 33.5 % (34.1-44.9); Hemoglobin 10.7 g/dl (12.0-16.0); Mean Corpuscular Hemoglobin 29.1 pg (25.0-34.0); Mean Corpuscular Hgb Conc 31.9 g/dL (32.0-36.0); Mean Platelet Volume 11.2 fL (9.4-12.3); Platelet Count 160 K/uL (130-400); RDW Coefficient of Variation 13.5 % (11.5-14.5); RDW Standard Deviation 45.7 fL (36.4-46.3); Red Blood Count 3.68 M/uL (3.93-5.22); White Blood Count 6.32 K/ul (4.8-10.8)
[2022-02-25 06:36] LABS: BUN Creatinine Ratio 22.6 (10-20); Calcium 8.3 mg/dl (8.5-10.1); Creatinine Clr Calc Pharmacy 49.7 ml/min; Est GFR (African American) 77.2 ml/min; Est GFR (Non-African American) 66.6 ml/min; Potassium 3.8 mmol/L (3.5-5.1)
[2022-02-25] MEDS: ENOXAPARIN INJ 40 MG/0.4 ML SYR SQ SCH (07:50)
--- NOTE | 2022-02-25 09:56 | CT Scan Report ---
CT chest diagnostic wo con CLINICAL HISTORY: right apical density suspicious for right upper lung nodule vs pna COMPARISON STUDY: Portable chest from 02/23/2022 CT DOSE: 258.07 mGy.cm TECHNIQUE: Standard CT of the Chest was performed without IV contrast. A dose lowering technique was utilized adhering to the principles of ALARA. FINDINGS: Airway: The airway is clear. No endobronchial lesion is identified. Lungs: There is no evidence for right apical lung density is suspected radiographically. The finding seen radiographically represent superimposed lung densities. The lungs are clear of acute alveolar op acities, air bronchograms or pulmonary nodules. Pleura: There is no evidence for pleural effusion. There is no evidence for pneumothorax. Mediastinum: There is no evidence for pathologic adenopathy on these limited noncontrast images. The heart size is within normal limits. The thoracic aorta is within normal limits. There is no evidence for pericardial effusion. Upper abdomen: The adrenal glands are normal bilaterally. There is a small hiatal hernia. Osseous structures: There is no acute osseous pathology. IMPRESSION: 1. No evidence for right upper lobe density. 2. There is no acute chest disease on these noncontrast images. ACT 112: Negative or not required by law. Electronically signed by: Jacob Sanford M.D. 02/25/2022 9:54 AM
--- NOTE | 2022-02-25 15:08 | Hospitalist Progress Note ---
Date of Service February 25, 2022 Assessment & Plan (1) Gram-negative bacteremia: Plan: Recurrent gram-negative bacteremia (4th episode) Likely enteric etiology with current gram negative enteric pathogen being isolated in the blood and vomiting, however, actual source is unclear. Patient still has to go for colonoscopy as part of GI work-up to rule out gut translocation as potential etiology Cont Aztreonam ID consult pending . Hypothyroidism, chronic, stable. Cont Synthroid per home regimen. DVT prophylaxis. Lovenox subcu Full code Barbara Zambrano DO [facility] Hospitalist Admission and Anticipated Discharge Date Admission Date: February 23, 2022 Subjective 76-year-old female with recurrent bacteremia. She initially had cholecystitis in 2018 and underwent a laparoscopic cholecystectomy. At that time she had Serratia marcescens bacteremia and was treated. She was then admitted to [facility] in April 2020 for vomiting fevers and chills with blood cultures positive for Acinetobacter. She was placed on cefepime for total of 14 days. No obvious source was found. She was again admitted in October 2021 for weakness fever and vomiting and blood cultures positive for panacea. She was placed on ciprofloxacin for 7 days after several days of meropenem in the hospital. She now presents again with worsening fevers fatigue and some abdominal cramping and blood cultures are currently positive for Enterobacter cloacae which is a gram- negative enteric pathogen. She has been placed on aztreonam. Notably, she is scheduled for outpatient GI endoscopy out of concern for translocation of bacteria from her GI tract which may be causing recurrent bacteremia. Today she is reporting improvement generally since starting the Aztreonam. No further vomiting and she is tolerating PO No fevers or chills Ambulating Review of Systems Review of Systems: All systems were reviewed and negative except as indicated in subjective above. Physical Exam Physical Exam: CONSTITUTIONAL: WNWD, vitals as above, generally well- appearing, NAD EYES: normal conjunctivae, no scleral icterus ENT: external ear and nose normal, MMM NECK: trachea midline RESPIRATORY: clear to auscultation bilaterally except for trace rales at bases of lungs bilaterally, no crackles or wheezes, normal respiratory effort CARDIOVASCULAR: regular rate and rhythm, S1 and 2 heard without murmurs, gallops or rubs, no JVD, no peripheral edema CHEST: inspection of chest was normal GASTROINTESTINAL: soft, nontender, ND, no guarding MUSCULOSKELETAL: strength 5/5 throughout, head is normocephalic and atraumatic SKIN: warm and dry NEUROLOGIC: CN 2-12 grossly intact, no sensory deficit, normal cognition, normal speech, no tremor PSYCHIATRIC: alert cooperative and oriented to person, place and time. Euthymic mood, makes good eye contact, language grossly intact, recent and remote memory grossly intact. Results & Data Results & Data ([facility]) Vital Signs (Past 12 Hours) Vital Signs Temp Pulse Resp BP Pulse Ox O2 Del Method 02/25/22 07:51 36.5 C 68 16 109/59 L 98 Room Air Laboratory Results Short CBC 02/25/22 Range/Units 06:04 WBC 6.32 (4.8-10.8) K/ul Hgb 10.7 L (12.0-16.0) g/dl Hct 33.5 L (34.1-44.9) % Plt Count 160 (130-400) K/uL BMP 02/25/22 06:04 Sodium 138 Potassium 3.8 Chloride 109 H Carbon Dioxide 25 BUN 19 Creatinine 0.84 Glucose 121 H Calcium 8.3 L Diagnostic Findings Chest CT 02/25/22 08:17 CT chest diagnostic wo con CLINICAL HISTORY: right apical density suspicious for right upper lung nodule vs pna COMPARISON STUDY: Portable chest from 02/23/2022 CT DOSE: 258.07 mGy.cm TECHNIQUE: Standard CT of the Chest was performed without IV contrast. A dose lowering technique was utilized adhering to the principles of ALARA. FINDINGS: Airway: The airway is clear. No endobronchial lesion is identified. Lungs: There is no evidence for right apical lung density is suspected radiographically. The finding seen radiographically represent superimposed lung densities. The lungs are clear of acute alveolar opacities, air bronchograms or pulmonary nodules. Pleura: There is no evidence for pleural effusion. There is no evidence for pneumothorax. Mediastinum: There is no evidence for pathologic adenopathy on these limited noncontrast images. The heart size is within normal limits. The thoracic aorta is within normal limits. There is no evidence for pericardial effusion. Upper abdomen: The adrenal glands are normal bilaterally. There is a small hiatal hernia. Osseous structures: There is no acute osseous pathology. IMPRESSION: 1. No evidence for right upper lobe density. 2. There is no acute chest disease on these noncontrast images. ACT 112: Negative or not required by law. Electronically signed by: Jacob Sanford M.D. 02/25/2022 9:54 AM Medications Administered Current Inpatient Medications Acetaminophen (Acetaminophen 325 Mg Tab) 650 mg PO Q4H PRN PRN Reason: pain/fever Stop: 03/26/22 01:10 Enoxaparin Sodium (Enoxaparin Inj 40 Mg/0.4 Ml Syr) 40 mg SQ QAM [facility] Stop: 03/26/22 08:59 Last Admin: 02/25/22 07:50 Dose: Not Given Promethazine HCl 12.5 mg/ (Sodium Chloride) 50.5 mls @ 202 mls/hr IV Q6H PRN PRN Reason: Nausea And Vomiting Stop: 03/26/22 01:10 Aztreonam 2,000 mg/ Dextrose 110 mls @ 100 mls/hr IV Q8H [facility]; Protocol Stop: 03/10/22 03:59 Last Admin: 02/25/22 12:53 Dose: 100 mls/hr Ibuprofen (Ibuprofen 200 Mg Tab) 200 mg PO Q6H PRN PRN Reason: Mild Pain Stop: 03/26/22 01:10 Levothyroxine Sodium (Levothyroxine Sodium 25 Mcg Tablet) 25 mcg PO DAILYBB [facility] Stop: 03/26/22 06:29 Last Admin: 02/25/22 05:00 Dose: 25 mcg Polyethylene Glycol (Polyethylene (Miralax) 17 Gm Pack) 17 gm PO Q12H PRN PRN Reason: Constipation Stop: 03/26/22 17:53 Last Admin: 02/24/22 18:07 Dose: 17 gm
[2022-02-25] MEDS: POLYETHYLENE (MIRALAX) 17 GM PACK PO PRN (21:34)
[2022-02-26] MEDS: AZTREONAM 2,000 MG in DEXTROSE 5% 100 ML IV SCH ×3 (05:07→20:19)
[2022-02-26] MEDS: LEVOTHYROXINE SODIUM 25 MCG TABLET PO SCH (05:07)
[2022-02-26 06:12] LABS: Hematocrit (blood only) 33.4 % (34.1-44.9); Mean Corpuscular Hemoglobin 29.4 pg (25.0-34.0); Mean Corpuscular Hgb Conc 32.9 g/dL (32.0-36.0); Mean Corpuscular Volume 89.3 fL (80.0-100.0); Mean Platelet Volume 11.4 fL (9.4-12.3); Platelet Count 193 K/uL (130-400); RDW Coefficient of Variation 13.5 % (11.5-14.5); RDW Standard Deviation 44.2 fL (36.4-46.3); Red Blood Count 3.74 M/uL (3.93-5.22); White Blood Count 5.65 K/ul (4.8-10.8)
[2022-02-26 07:03] LABS: BUN Creatinine Ratio 25.3 (10-20); Calcium 8.5 mg/dl (8.5-10.1); Creatinine Clr Calc Pharmacy 55.6 ml/min; Est GFR (African American) 88.5 ml/min; Est GFR (Non-African American) 76.3 ml/min; Potassium 3.8 mmol/L (3.5-5.1)
[2022-02-26] MEDS: ENOXAPARIN INJ 40 MG/0.4 ML SYR SQ SCH (09:12)
--- NOTE | 2022-02-26 13:04 | Hospitalist Progress Note ---
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 Patient still has to go for colonoscopy as part of GI work-up to rule out gut translocation as potential etiology Cont Aztreonam ID consult pending . Hypothyroidism, chronic, stable. Cont Synthroid per home regimen. DVT prophylaxis. Lovenox subcu Full code Barbara Zambrano DO [facility] Hospitalist Admission and Anticipated Discharge Date Admission Date: February 23, 2022 Subjective 76-year-old female with recurrent bacteremia. She initially had cholecystitis in 2018 and underwent a laparoscopic cholecystectomy. At that time she had Serratia marcescens bacteremia and was treated. She was then admitted to [facility] in April 2020 for vomiting fevers and chills with blood cultures positive for Acinetobacter. She was placed on cefepime for total of 14 days. No obvious source was found. She was again admitted in October 2021 for weakness fever and vomiting and blood cultures positive for panacea. She was placed on ciprofloxacin for 7 days after several days of meropenem in the hospital. She now presents again with worsening fevers fatigue and some abdominal cramping and blood cultures are currently positive for Enterobacter cloacae which is a gram- negative enteric pathogen. She has been placed on aztreonam. Notably, she is scheduled for outpatient GI endoscopy out of concern for translocation of bacteria from her GI tract which may be causing recurrent bacteremia. No further vomiting and she is tolerating PO No fevers or chills Ambulating Awaiting ID consult later today Review of Systems Review of Systems: All systems were reviewed and negative except as indicated in subjective above. Physical Exam Physical Exam: CONSTITUTIONAL: WNWD, vitals as above, generally well- appearing, NAD EYES: normal conjunctivae, no scleral icterus ENT: external ear and nose normal, MMM NECK: trachea midline RESPIRATORY: clear to auscultation bilaterally except for trace rales at bases of lungs bilaterally, no crackles or wheezes, normal respiratory effort CARDIOVASCULAR: regular rate and rhythm, S1 and 2 heard without murmurs, gallops or rubs, no JVD, no peripheral edema CHEST: inspection of chest was normal GASTROINTESTINAL: soft, nontender, ND, no guarding MUSCULOSKELETAL: strength 5/5 throughout, head is normocephalic and atraumatic SKIN: warm and dry NEUROLOGIC: CN 2-12 grossly intact, no sensory deficit, normal cognition, normal speech, no tremor PSYCHIATRIC: alert cooperative and oriented to person, place and time. Euth ymic mood, makes good eye contact, language grossly intact, recent and remote memory grossly intact. Results & Data Results & Data ([facility]) Vital Signs (Past 12 Hours) Vital Signs Temp Pulse Resp BP Pulse Ox O2 Del Method 02/26/22 06:50 36.9 C 57 L 16 115/69 97 Room Air Laboratory Results Short CBC 02/26/22 Range/Units 05:47 WBC 5.65 (4.8-10.8) K/ul Hgb 11.0 L (12.0-16.0) g/dl Hct 33.4 L (34.1-44.9) % Plt Count 193 (130-400) K/uL BMP 02/26/22 05:47 Sodium 139 Potassium 3.8 Chloride 108 H Carbon Dioxide 24 BUN 19 Creatinine 0.75 Glucose 106 H Calcium 8.5 Medications Administered Current Inpatient Medications Acetaminophen (Acetaminophen 325 Mg Tab) 650 mg PO Q4H PRN PRN Reason: pain/fever Stop: 03/26/22 01:10 Enoxaparin Sodium (Enoxaparin Inj 40 Mg/0.4 Ml Syr) 40 mg SQ QAM [facility] Stop: 03/26/22 08:59 Last Admin: 02/26/22 09:12 Dose: Not Given Promethazine HCl 12.5 mg/ (Sodium Chloride) 50.5 mls @ 202 mls/hr IV Q6H PRN PRN Reason: Nausea And Vomiting Stop: 03/26/22 01:10 Aztreonam 2,000 mg/ Dextrose 110 mls @ 100 mls/hr IV Q8H [facility]; Protocol Stop: 03/10/22 03:59 Last Admin: 02/26/22 12:04 Dose: 100 mls/hr Ibuprofen (Ibuprofen 200 Mg Tab) 200 mg PO Q6H PRN PRN Reason: Mild Pain Stop: 03/26/22 01:10 Levothyroxine Sodium (Levothyroxine Sodium 25 Mcg Tablet) 25 mcg PO DAILYBB [facility] Stop: 03/26/22 06:29 Last Admin: 02/26/22 05:07 Dose: 25 mcg Polyethylene Glycol (Polyethylene (Miralax) 17 Gm Pack) 17 gm PO Q12H PRN PRN Reason: Constipation Stop: 03/26/22 17:53 Last Admin: 02/25/22 21:34 Dose: 17 gm
[2022-02-27] MEDS: AZTREONAM 2,000 MG in DEXTROSE 5% 100 ML IV SCH ×2 (04:31→12:02)
[2022-02-27] MEDS: LEVOTHYROXINE SODIUM 25 MCG TABLET PO SCH (04:33)
[2022-02-27 07:34] LABS: Creatinine Clr Calc Pharmacy 54.9 ml/min; Est GFR (African American) 87.1 ml/min; Est GFR (Non-African American) 75.1 ml/min
[2022-02-27] MEDS: ENOXAPARIN INJ 40 MG/0.4 ML SYR SQ SCH (07:50)
--- NOTE | 2022-02-27 11:02 | Discharge Summary ---
Date of Service February 27, 2022 Admission HPI Per Admitting Provider History obtained from patient and records. Medical history significant for recurrent gram-negative bacteremia, hypothyroidism. Last [facility] confinement October 2021 for recurrent gram-negative bacteremia (third episode). Pantoea agglomerans on CS. Patient has previously grown Serratia marcescens and Acinetobacter baumannii Patient discharged on 2-week Cipro course after receiving meropenem inpatient. Outpatient GI evaluation recommended to rule out gut translocation as risk factor for recurrent gram-negative bacteremia. Outpatient GI provider recommended EGD/EUS with liver biopsy, colonoscopy and checking liver serologies. Patient underwent upper endoscopy outpatient last month. EGD showed small hiatal hernia. EUS did not show significant ampulla pathology. CBD dilated. Fatty liver infiltration noted. Left lobe liver with cyst. Pancreatic parenchymal abnormalities consisting of atrophy, hyperechoic strands and hyperechoic foci noted. Pancreatic body cyst without worrisome features. Patient waiting for colonoscopy scheduled. Yesterday, patient noted fever chills with nausea/vomiting symptoms. No abdominal pain, no dysuria symptoms. Generalized weakness. Symptoms reminiscent of bacteremic fracture as per patient. Patient consulted ER yesterday. CT abdomen pelvis results as follows: 1. No acute intra-abdominal or intrapelvic abnormality. 2. Bilateral renal sinus cysts with pelviectasis is unchanged from the comparison study. No urolith or hydronephrosis. 3. Partial distention of the urinary bladder with mild wall thickening. Correlate with urinalysis. 4. Cholecystectomy with unchanged biliary ductal dilation, likely postsurgical. 5. No bowel obstruction. UA WBC 1-5 Patient discharged on Ciprofloxacin course. Gram-negative rods later grew on 2 bottles of blood cultures drawn during ER visit. Patient requested to return to ER for evaluation/management of bacteremia. Meropenem administered at the ER. Medical History as above Surgical History : Cholecystectomy, D&C Family History : DM, breast cancer, asthma Personal/Social history : Non-smoker, no EtOH intake, retired schoolteacher Principal Diagnosis Bacteremia 2/2 Enterobacter Discharge Exam CONSTITUTIONAL: WNWD, vitals as above, generally well-appearing, NAD EYES: normal conjunctivae, no scleral icterus ENT: external ear and nose normal, MMM NECK: trachea midline RESPIRATORY: clear to auscultation bilaterally except for trace rales at bases of lungs bilaterally, no crackles or wheezes, normal respiratory effort CARDIOVASCULAR: regular rate and rhythm, S1 and 2 heard without murmurs, gallops or rubs, no JVD, no peripheral edema CHEST: inspection of chest was normal GASTROINTESTINAL: soft, nontender, ND, no guarding MUSCULOSKELETAL: strength 5/5 throughout, head is normocephalic and atraumatic SKIN: warm and dry NEUROLOGIC: CN 2-12 grossly intact, no sensory deficit, normal cognition, normal speech, no tremor PSYCHIATRIC: alert cooperative and oriented to person, place and time. Euthymic mood, makes good eye contact, language grossly intact, recent and remote memory grossly intact. 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 Enterobacter cloacae isolated in 1 of 4 bottles. Patient still has to go for colonoscopy as part of GI work-up to rule out gut translocation as potential etiology Aztreonam given since admission ID consult recommended cipro to complete the course which was given at time of discharge. Close primary care follow-up was recommended. Total Time Total Time Spent Total Time Spent (In Minutes): 60 Discharge Plan Discharge Items Patient Disposition: Home - Self-Care Reason For Visit: BACTEREMIA Discharge Diagnosis: Bacteremia 2/2 Enterobacter Condition on Discharge: Good Activity: Resume your previous activity Non-emergency contact: Primary Care Provider Call non-emergency contact if: you have any medication questions, your symptoms worsen and your temperature is above 101.5 Follow-up/Referrals: Antonia Harrell MD [Primary Care Provider] - (Date & Time 03/05/2022 1:00 PM Provider Paul Segura MD Department Family Medicine [facility] ) Diet: Regular Addtl Attending Provider Instructions: Please take all medications as instructed on discharge list below. Please follow-up wtih your primary care physician within one week of hospital discharge in order to ensure you are tolerating the medication without difficulty and make sure things are going well since discharge. You must take 14 days of antibiotic since the date of your first cleared blood culture, which was 02/23. However, these blood cultures are only a preliminary result with final reading pending. Your physician can assist you with ensuring the final reading is negative. Please continue to pursue the endoscopy workup to investigate the source of recurrent bacteremia. An outpatient Infectious Disease consultation (or second opinion at [facility]) may be helpful. It was a pleasure taking care of you! Please call if you have any questions or problems. You can reach a [facility] hospitalist on duty at [facility] 24 hours a day by calling [phone]. Take care of yourself. Barbara Zambrano, DO [facility] Hospitalist Pending Studies at Discharge: No Stand-Alone Forms: My [facility] Medications and DC Order Prescriptions: New ciprofloxacin HCl [Cipro] 500 mg tablet 500 mg PO Q12H Qty: 24 0RF Continued levothyroxine [Synthroid] 25 mcg tablet 25 mcg PO QAM Discharge Orders: Discharge Order (Routine); Ordered 02/27/22 Ordered By: Barbara Naranjo/Other Patient Handouts: ED Bacteremia, Suspected (Adult) Admission Data Admit Date/Time: 02/23/22 22:58 Attending Provider: Barbara Zambrano Admit Provider: Daren Mc Primary Care Provider: Antonia Harrell Other Providers: Daren Mc ; Neftali Weinstein ; Ambrose Marina ; Chaz Guevara I. ; Ramos Mcmillan II ; Daphney Nails ; Jayjay Charlton ; Manjit Eid Other Interventions: Discharge Summary Assessment (RN) Last Done: 02/27/22 12:14
== END 2022-02-27 13:26 | disposition home or self-care (01) | DRG 872 ==
LOC: ED 18:48 → 3E 22:58 → SUATTDRO 22:58 → 3E 02-24 00:28

== ENCOUNTER 2022-03-29 10:47 | Inpatient (IN) ==
[2022-03-29] MEDS ORDERED: ALBUT/IPRATROP 3MG/0.5MG NEB 3 ML VIAL NEB STA (10:53)
--- NOTE | 2022-03-29 10:53 | Communication Note ---
I saw this patient with Dr. Hernandez and was a part of the medical decision making team. Date of Service: March 29, 2022 Resident Activity Tracking Resident Involvement: Resident Care Provided Care Provided: Adult ED
--- NOTE | 2022-03-29 10:56 | Emergency Department Note ---
Impression & Plan Aspiration into airway, Hypoxia ED Provider Note NAME: JUNO BARTLETT AGE: 76 SEX: F : 1945 ARRIVES VIA: Ambulance INFORMANT: Patient, ED PROVIDER(S): Mikel Hernandez DO CHIEF COMPLAINT: Shortness of breath HPI: The patient is a 76-year-old female who presented to the emergency department for an evaluation of shortness of breath. The patient was scheduled for an outpatient ERCP today. She had the ERCP after receiving fentanyl. She did require [id number] when she had the fentanyl. The patient was having ERCP and appeared to have aspirated. There was bile noted in the oropharynx in the upper airway. I received a phone call from the anesthesiologist [facility]. The patient initially had significant rhonchi. She was treated with a DuoNeb treatment. The patient's symptoms did improve but her oxygen saturation was still below 90. She was felt to be a good candidate for transportation to the emergency department for reevaluation and possible observation for continued improvement. At this time the patient states her symptoms are significantly improved. She denies having any chest pain. She denies having any hemoptysis. ROS: See above HPI for pertinent positives & negatives. A total of 10 systems reviewed and were otherwise negative. PAST MEDICAL HISTORY: See Below PAST SURGICAL HISTORY: See Below FAMILY HISTORY: See Below SOCIAL HISTORY: See Below HOME MEDICATIONS: See Below ALLERGIES: See Below VITALS: See Below PHYSICAL EXAMINATION: GENERAL: Patient is awake alert in no acute distress patient is resting comfortably and showing no signs of anxiety EYES: The conjunctivae are clear. The pupils are round and reactive. EARS, NOSE, MOUTH AND THROAT: The nose is without any evidence of any deformity. Mucous membranes are moist. Tongue is midline. NECK: The neck is nontender and supple. RESPIRATORY: Diminished breath sounds are noted with rhonchi at the right base. There is no tachypnea or conversational dyspnea. CARDIOVASCULAR: Regular rate and rhythm noted there no murmurs rubs or gallops normal S1 normal S2. GASTROINTESTINAL: The abdomen is soft. Abdomen is nontender. MUSCULOSKELETAL/EXTREMITIES: There is no evidence of gross deformity full range of motion is noted in the hips and shoulders. SKIN: There is no obvious evidence of any rash. There are no petechiae, pallor or cyanosis noted. NEUROLOGIC: Patient is awake alert and oriented x3 MEDICAL DECISION MAKING: Is a 76-year-old female who presented to the emergency department for an evaluation of difficulty breathing. The patient had a ERCP this morning patient had aspiration into her airway during this procedure. The patient was treated with a DuoNeb prior to arrival at the surgery center. She was placed on supplemental oxygen but upon arrival here her oxygen demand was diminished. She still has abnormal lung sounds which could be consistent with aspiration and after discussion with the patient's anesthesiologist it would be more prudent for the patient to be observed to determine if she will have an oxygen requi rement or will start to worsen with her condition. For this reason I discussed her case with the on[facility]call [facility]. They have agreed to evaluate the patient in the emergency department Triage Nursing notes reviewed. Prior medical records reviewed Vital Signs: reviewed and remarkable for initial hypoxia and bradycardia. Differential diagnosis: Reactive airway disease, pneumonia, pneumothorax, COPD, CHF, infections, cardiac ischemia, pulmonary embolism, musculoskeletal, gastrointestinal, as well as other pathologies. ER treatment provided: See below Diagnostics interpreted by me: ECG: EKG was obtained in the emergency department. My interpretation is normal sinus rhythm at 61 bpm. There is no ectopy. There is no acute ST segment abnormalities noted. This was compared to a tracing from February 23, 2022. No changes were noted. Cardiac Monitoring: An order was placed for continuous cardiac monitoring. The monitor shows a rate of 59 bpm with sinus bradycardia. Laboratory studies: As stated above and show below. Imaging studies: See below Consultation(s): I discussed this case with Zohreh who is on for the [facility] group. Past Med/Surg History Medical History Bacteremia CKD (chronic kidney disease), stage III Gram-negative bacteremia Hypothyroidism Sensorineural hearing loss (SNHL) of left ear with restricted hearing of right ear Surgical History History of cholecystectomy 04/11/19 - lap cholecystectomy. Dr England at [facility] History of colonoscopy History of dilatation and curettage Family History Mother Asthma Father Cancer Prostate cancer Hearing loss Other Diabetes No family history of bleeding disorder Denies family history of Heart disease Hypertension Stroke Social History Smoking Status: Never smoker Hx Alcohol Use: No Hx Substance Use: No Preferred Language: Swedish Communication Ability: Effective Director Private Music Therapy Agency Required: No Beliefs That Will Affect Care: None marital status: Current Living Situation: Spouse current occupational status: retired How many Children do You have: 2 Feels Safe at Home: Yes Assistive Devices: None Allergies Allergies Allergy/AdvReac Type Severity Reaction Status Date / Time cefepime Allergy Intermediate HIVES Verified 02/23/22 23:21 Home Meds Home Medications Medication Instructions Recorded Confirmed levothyroxine 25 mcg tablet 25 mcg PO QAM 04/10/19 02/23/22 (Synthroid) Previous Rx's Medication Instructions Recorded ciprofloxacin HCl 500 mg tablet 500 mg PO Q12H #24 tabs 02/27/22 (Cipro) Results & Data (ED) Vital Signs Vital Signs - 24 hr 03/29/22 11:09 03/29/22 11:09 03/29/22 11:13 Temperature 36.5 C Temperature Source Oral Pulse Rate 62 Pulse Rate [Apical] Respiratory Rate 22 Respiratory Effort / Characteristics Non-Labored Non-Labored Respiratory Depth Normal Normal Respiratory Pattern Regular Blood Pressure 157/65 H Blood Pressure [Right Arm] Blood Pressure Mean 95 Blood Pressure Mean [Right Arm] Pulse Oximetry 93 97 Oxygen Delivery Method Room Air Nasal Cannula Oxygen Flow Rate 2 Sepsis Recent Fever Within 48 Hours No Sepsis New/Unexplained Change in Mental Status No Sepsis Action Taken by Nursing No Action Required 03/29/22 11:13 03/29/22 11:42 Temperature Temperature Source Pulse Rate Pulse Rate [Apical] 59 L Respiratory Rate 20 Respiratory Effort / Characteristics Respiratory Depth Respiratory Pattern Blood Pressure Blood Pressure [Right Arm] 138/59 L Blood Pressure Mean Blood Pressure Mean [Right Arm] 85 Pulse Oximetry 99 Oxygen Delivery Method Room Air Nebulizer Oxygen Flow Rate Sepsis Recent Fever Within 48 Hours Sepsis New/Unexplained Change in Mental Status Sepsis Action Taken by [facility] Medications Current Medication List: was personally reviewed by me Laboratory Data Attestation: I reviewed the patient's lab results. Result diagrams: 03/29/22 11:36 03/29/22 11:36 Lab Results 03/29/22 03/29/22 03/29/22 Range/Units 11:36 11:36 11:36 WBC 12.40 H (4.8-10.8) K/ul RBC 4.00 (3.93-5.22) M/uL Hgb 11.7 L (12.0-16.0) g/dl Hct 35.8 (34.1-44.9) % MCV 89.5 (80.0-100.0) fL MCH 29.3 (25.0-34.0) pg MCHC 32.7 (32.0-36.0) g/dL RDW Std Deviation 44.6 (36.4-46.3) fL RDW Coeff of Marlon 13.5 (11.5-14.5) % Plt Count 190 (130-400) K/uL MPV 11.5 (9.4-12.3) fL Immature Gran % (Auto) 0.3 % Neut % (Auto) 87.3 % Lymph % (Auto) 7.1 % [place] % (Auto) 4.9 % Eos % (Auto) 0.2 % Baso % (Auto) 0.2 % Neut # (Auto) 10.83 H (1.4-6.5) K/uL Lymph # (Auto) 0.88 L (1.2-3.4) K/uL [place] # (Auto) 0.61 (0.24-0.82) K/uL Eos # (Auto) 0.02 (0-0.50) K/uL Baso # (Auto) 0.02 (0-0.2) K/uL Immature Gran # (Auto) 0.04 H (0.00-0.02) K/uL PT 10.3 (9.0-12.0) Seconds INR 1.0 (0.9-1.1) APTT 24.5 (21.0-31.0) Seconds PTT Ratio 0.9 Sodium 139 (136-145) mmol/L Potassium 4.3 (3.5-5.1) mmol/L Chloride 107 (98-107) mmol/L Carbon Dioxide 24 (21-32) mmol/L Anion Gap 8 (3-11) BUN 20 (6-23) mg/dl Creatinine 0.86 (0.6-1.2) mg/dl Est Cr Clr Drug Dosing Not Reportable Est GFR ( Amer) 75.0 ml/min Est GFR (Non-Af Amer) 64.7 ml/min BUN/Creatinine Ratio 23.3 H (10-20) Glucose 168 H (70-99(Fasting)) mg/dl Calcium 8.5 (8.5-10.1) mg/dl Magnesium 1.9 (1.7-2.4) mg/dl Total Bilirubin 0.7 (0.2-1.0) mg/dl AST 138 H (13-39) U/L ALT 67 H (7-52) U/L Alkaline Phosphatase 81 (34-104) U/L Troponin I High Sens 2.4 (0-14) pg/ml Total Protein 6.4 (6.0-8.3) gm/dl Albumin 3.8 (3.4-5.0) gm/dl Globulin 2.6 (2.5-4.0) gm/dl Albumin/Globulin Ratio 1.5 (0.9-2) Administered Medications Discontinued Medications Albuterol (Albut/Ipratrop 3mg/0.5mg Neb 3 Ml Vial) 3 ml NEB NOW STA; Protocol Stop: 03/29/22 10:54 Last Admin: 03/29/22 11:36 Dose: 3 ml Documented By: Imaging Data Radiologist's Impression: Chest X-Ray 03/29/22 10:53 XR chest 1V portable CLINICAL HISTORY: Dyspnea TECHNIQUE: Single frontal radiograph of the chest was obtained. Comparison: Comparison is made to chest radiograph 02/23/2022 FINDINGS: No lines and tubes are seen. The cardiomediastinal silhouette is normal. The lungs are clear. No evidence of pleural effusion or pneumothorax. IMPRESSION: No acute chest disease. ACT 112: Negative or not required by law. Electronically signed by: Jeff Lee M.D. 03/29/2022 11:33 AM Discharge Plan Visit Data Chief Complaint: Respiratory Problems Stated Complaint: ASPIRATION ED Provider: Mikel Hernandez Discharge Problem: Aspiration into airway, Hypoxia Patient Disposition: Being Evaluated by Hospitalist Forms Stand Alone Forms: My [facility] [employer] Prescriptions Prescriptions: No Action levothyroxine [Synthroid] 25 mcg tablet 25 mcg PO QAM ciprofloxacin HCl [Cipro] 500 mg tablet 500 mg PO Q12H Qty: 24 0RF Referrals Referrals: Antonia Harrell MD [Primary Care Provider] -
--- NOTE | 2022-03-29 11:35 | XRay Report ---
XR chest 1V portable CLINICAL HISTORY: Dyspnea TECHNIQUE: Single frontal radiograph of the chest was obtained. Comparison: Comparison is made to chest radiograph 02/23/2022 FINDINGS: No lines and tubes are seen. The cardiomediastinal silhouette is normal. The lungs are clear. No evid ence of pleural effusion or pneumothorax. IMPRESSION: No acute chest disease. ACT 112: Negative or not required by law. Electronically signed by: Jeff Lee M.D. 03/29/2022 11:33 AM
[2022-03-29 11:49] LABS: Basophils # (auto) 0.02 K/uL (0-0.2); Basophils % (auto) 0.2 %; Eosinophils # (auto) 0.02 K/uL (0-0.50); Eosinophils % (auto) 0.2 %; Hematocrit (blood only) 35.8 % (34.1-44.9); Hemoglobin 11.7 g/dl (12.0-16.0); Immature Granulocytes # (auto) 0.04 K/uL (0.00-0.02); Immature Granulocytes % (auto) 0.3 %; Lymphocytes # (auto) 0.88 K/uL (1.2-3.4); Lymphocytes % (auto) 7.1 %; Mean Corpuscular Hemoglobin 29.3 pg (25.0-34.0); Mean Corpuscular Hgb Conc 32.7 g/dL (32.0-36.0); Mean Corpuscular Volume 89.5 fL (80.0-100.0); Mean Platelet Volume 11.5 fL (9.4-12.3); Monocytes # (auto) 0.61 K/uL (0.24-0.82); Monocytes % (auto) 4.9 %; Neutrophils # (auto) 10.83 K/uL (1.4-6.5); Neutrophils % (auto) 87.3 %; Platelet Count 190 K/uL (130-400); RDW Coefficient of Variation 13.5 % (11.5-14.5); RDW Standard Deviation 44.6 fL (36.4-46.3)
[2022-03-29 12:01] LABS: Partial Thromboplastin Ratio 0.9; Partial Thromboplastin Time 24.5 Seconds (21.0-31.0); Prothrombin Time 10.3 Seconds (9.0-12.0)
[2022-03-29 12:14] LABS: Troponin I High Sensitivity 2.4 pg/ml (0-14)
[2022-03-29 12:15] LABS: Alanine Aminotransferase 67 U/L (7-52); Albumin Globulin Ratio 1.5 (0.9-2); Albumin Level 3.8 gm/dl (3.4-5.0); Alkaline Phosphatase 81 U/L (34-104); Anion Gap 8 (3-11); Aspartate Aminotransferase 138 U/L (13-39); BUN Creatinine Ratio 23.3 (10-20); Bilirubin,Total 0.7 mg/dl (0.2-1.0); Blood Urea Nitrogen 20 mg/dl (6-23); Calcium 8.5 mg/dl (8.5-10.1); Carbon Dioxide 24 mmol/L (21-32); Chloride 107 mmol/L (98-107); Est GFR (Non-African American) 64.7 ml/min; Globulin 2.6 gm/dl (2.5-4.0); Glucose 168 mg/dl (70-99(Fasting)); Magnesium 1.9 mg/dl (1.7-2.4); Potassium 4.3 mmol/L (3.5-5.1); Sodium 139 mmol/L (136-145); Total Protein 6.4 gm/dl (6.0-8.3)
[2022-03-29] MEDS ORDERED: AMPICILLIN/SULBACTAM SOD 3,000 MG in 0.9 % SODIUM CHLORIDE 100 ML IV STA (13:33)
--- NOTE | 2022-03-29 13:50 | History & Physical Report ---
Date of Service March 29, 2022 Assessment & Plan (1) Aspiration into airway: (2) Hypoxia: Plan This is a 76-year-old female who has a significant past medical history of hypothyroidism, CKD stage IIIa, recurrent gram-negative bacteremia, fatty liver, elevated LFTs who presents to ED after being referred from outpatient endoscopy suite status post ERCP with concern for aspiration into airway. Aspiration into airway S/P ERCP Secondary to sphincter of Oddi dysfunction/spasm, acquired biliary duct dilatation with biliary sphincterotomy, biliary tree swept and nothing found, 1 plastic pancreatic stent placed in the ventral pancreatic duct hypoxia - resolved admit to telemetry continue prn nebs encourage incentive spirometry, flutter valve prn delsym for cough suppression Empiric IV unasyn for aspiration aspiration precautions repeat cxr in a.m. likely d/c tomorrow if continuing to improve Elevated LFTS repeat in a.m. obtain tsh/t4 pt following GI for elevated LFTS, s/p ERCP also had autoimmune w/u as OP recommend continue OP GI follow up hx of gram negative bacteremia x 4 currently undergoing GI w/u had OP c scope which revealed tubular adenoma polyp Had ERCP today, await patholoy Hypothyroidism continue levothyroxine DVT ppx: SCDS, likely d/c in a.m., if to remain hospitalized recommend initiating chemical ppx Dispo: tele PCP: Julio Cesar FULL CODE Pt was seen and examined in collaboration with Dr. Fischer, please see addendum History of Present Illness Chief Complaint: S/p ERCP and aspiration into airway during procedure. Primary Care Provider: Antonia Harrell MD This is a 76-year-old female who has a significant past medical history of hypothyroidism, CKD stage IIIa, recurrent gram-negative bacteremia, fatty liver, elevated LFTs who presents to ED after being referred from outpatient endoscopy suite status post ERCP with concern for aspiration into airway. She underwent ERCP after receiving fentanyl. She did require [id number] after receiving fentanyl. During ERCP she appeared to have aspirated and there was bile noted in the oropharynx and upper airway. She was referred over by anesthesiology from the [facility] due to initially having significant rhonchi And hypoxia. She was treated in the field with DuoNeb and symptoms did improve but continued to remain mildly hypoxic. She was transported to ED for further evaluation. In ED she continued to remain rhonchorous and therefore received additional nebulizer treatment. She was able to be weaned off oxygen. She continues to have a mild dry cough but otherwise denies feeling short of breath or wheezing. She denies any fever, chills, sweats, lightheadedness, dizziness, chest pain, palpitations, hemoptysis, nausea, vomiting, abdominal pain. She does report mild epigastric discomfort rated a 2/10. She feels this may be asso ciated to being hungry as she has been n.p.o. since midnight. She did receive indomethacin suppository post ERCP to prevent post ercp pancreatitis. Allergies Allergy/AdvReac Type Severity Reaction Status Date / Time cefepime Allergy Intermediate HIVES Verified 03/29/22 13:50 Home Medications Medication Instructions Recorded Confirmed Type levothyroxine 25 mcg tablet 25 mcg PO QAM 04/10/19 03/29/22 History (Synthroid) Past Med/Surg History Medical History Bacteremia CKD (chronic kidney disease), stage III Gram-negative bacteremia Hypothyroidism Sensorineural hearing loss (SNHL) of left ear with restricted hearing of right ear Surgical History History of cholecystectomy 04/11/19 - lap cholecystectomy. Dr England at [facility] History of colonoscopy History of dilatation and curettage Family History Mother Asthma Father Cancer Prostate cancer Hearing loss Other Diabetes No family history of bleeding disorder Denies family history of Heart disease Hypertension Stroke Social History Smoking Status: Never smoker Hx Alcohol Use: No Hx Substance Use: No Preferred Language: Omani Communication Ability: Effective Equities Analyst Required: Yes Beliefs That Will Affect Care: None marital status: Current Living Situation: Spouse current occupational status: retired How many Children do You have: 2 Feels Safe at Home: Yes Assistive Devices: None Review of Systems Review of Systems: All systems reviewed & are unremarkable except as noted in HPI & below Physical Exam Physical Exam: Constitutional: WD/WN, vitals as above, NAD, sitting up in bed, pleasant, conversing easily Head: Normocephalic, Atraumatic Eyes: PERRL, conjunctivae normal, anicteric sclerae ENMT: external ear and nose normal, oropharynx normal Neck: trachea midline, no thyromegaly normal visual inspection Respiratory: normal respiratory effort, lungs clear to auscultation with mild bibasilar crackles, no wheeze, or rhonchi. Normal insp/exp effort, no accessory muscle use Cardiovascular: RRR, no murmur, no edema Vessels: no JVD or carotid bruit Chest: normal inspection of chest Abdomen: normal bowel sounds, soft, nontender, no hepatosplenomegaly Musculoskeletal: no cyanosis or clubbing, extremities motor strength 5/5 Skin: no rashes, warm and dry normal turgor Neurologic: PERRL, EOMI, accommodation nl, no face palsy, no dysarthria CN's II-XI intact bilaterally and moves all extremities Psychiatric: A+Ox3, euthymic affect Lymphatic: no cervical or axillary lymphadenopathy : deferred Results & Data Results & Data ([facility]) Vital Signs (Past 12 Hours) Vital Signs Temp Pulse Pulse Resp BP BP Pulse Ox 03/29/22 11:42 59 L 20 138/59 L 99 03/29/22 11:13 03/29/22 11:09 97 03/29/22 11:09 36.5 C 62 22 157/65 H 93 O2 Del Method O2 Flow Rate 03/29/22 11:42 Nebulizer 03/29/22 11:13 Room Air 03/29/22 11:09 Nasal Cannula 2 03/29/22 11:09 Room Air Diagnostic Findings Chest X-Ray 03/29/22 10:53 XR chest 1V portable CLINICAL HISTORY: Dyspnea TECHNIQUE: Single frontal radiograph of the chest was obtained. Comparison: Comparison is made to chest radiograph 02/23/2022 FINDINGS: No lines and tubes are seen. The cardiomediastinal silhouette is normal. The lungs are clear. No evidence of pleural effusion or pneumothorax. IMPRESSION: No acute chest disease. ACT 112: Negative or not required by law. Electronically signed by: Jeff Lee M.D. 03/29/2022 11:33 AM Medications Administered Medication List Discontinued Medications Albuterol (Albut/Ipratrop 3mg/0.5mg Neb 3 Ml Vial) 3 ml NEB NOW STA; Protocol Stop: 03/29/22 10:54 Last Admin: 03/29/22 11:36 Dose: 3 ml Documented By: VAMSI ECG Rate (beats per minute): 61 Rhythm: normal sinus COVID-19 Results Results COVID-19 Adm Lab Results: RBC 4.00 M/uL (3.93-5.22) 03/29/22 WBC 12.40 K/ul (4.8-10.8) H 03/29/22 Hgb 11.7 g/dl (12.0-16.0) L 03/29/22 Hct 35.8 % (34.1-44.9) 03/29/22 Plt Count 190 K/uL (130-400) 03/29/22 Neutrophils (%) (Auto) 87.3 % 03/29/22 Lymphocytes (%) (Auto) 7.1 % 03/29/22 Monocytes # (Auto) 0.61 K/uL (0.24-0.82) 03/29/22 Eosinophils # (Auto) 0.02 K/uL (0-0.50) 03/29/22 Immature Granulocyte % (Auto) 0.3 % 03/29/22 Neutrophils # (Auto) 10.83 K/uL (1.4-6.5) H 03/29/22 Lymphocytes # (Auto) 0.88 K/uL (1.2-3.4) L 03/29/22 Monocytes # (Auto) 0.61 K/uL (0.24-0.82) 03/29/22 Eosinophils # (Auto) 0.02 K/uL (0-0.50) 03/29/22 Basophils # (Auto) 0.02 K/uL (0-0.2) 03/29/22 Immature Granulocyte # (Auto) 0.04 K/uL (0.00-0.02) H 03/29 Na 139 mmol/L (136-145) 03/29/22 K 4.3 mmol/L (3.5-5.1) 03/29/22 Cl 107 mmol/L (98-107) 03/29/22 CO2 24 mmol/L (21-32) 03/29/22 Anion Gap 8 (3-11) 03/29/22 BUN 20 mg/dl (6-23) 03/29/22 Creatinine 0.86 mg/dl (0.6-1.2) 03/29/22 BUN/Creatinine Ratio 23.3 (10-20) H 03/29/22 Glucose Level 168 mg/dl (70-99(Fasting)) H 03/29/22 Ca 8.5 mg/dl (8.5-10.1) 03/29/22 Total Bilirubin 0.7 mg/dl (0.2-1.0) 03/29/22 AST/SGOT 138 U/L (13-39) H 03/29/22 ALT/SGPT 67 U/L (7-52) H 03/29/22 Alkaline Phosphatase 81 U/L (34-104) 03/29/22 Total Protein 6.4 gm/dl (6.0-8.3) 03/29/22 Albumin 3.8 gm/dl (3.4-5.0) 03/29/22 Globulin 2.6 gm/dl (2.5-4.0) 03/29/22 Albumin/Globulin Ratio 1.5 (0.9-2) 03/29/22 PTT 24.5 Seconds (21.0-31.0) 03/29/22 INR 1.0 (0.9-1.1) 03/29/22 SARS-CoV-2, RNA, NAAT NEGATIVE (NEGATIVE) 03/29/22 Chest X-Ray 03/29/22 Code Status & VTE Plan Code Status Full code VTE Prophylaxis Plan VTE Prophylaxis will be ordered: Yes Supervising Physician Co-Signing Physician Notes Patient is a 76-year-old female with history of hypothyroidism, CKD stage III, fatty liver and other medical problems presents after having ERCP presents with concern for aspiration. Patient had fentanyl during the procedure and did require [id number]. Postprocedure, patient aspirated and was noted to have bile in the oropharynx and upper airways. She was noted to have coarse breath sounds with rhonchi and was hypoxic and so was sent to ED for further evaluation. Currently she is saturating on room air. Patient denies any please review HPI for complete details of presentation. Blood pressure is elevated in ED likely secondary to distress. Blood work showed WBC 12.4, hemoglobin 11.7, glucose 168, AST 138, ALT 67, TSH 2.3 . Urine analysis within normal limits. Chest x-ray showed no acute process. On exam patient is moderately built and nourished, no apparent chills, normocephalic atraumatic, EOMI, normal breath so unds, minimal scattered crackles noted, S1-S2, no murmur, no pedal edema, abdomen soft, nontender, normal bowel sounds, alert, awake, oriented, grossly no focal deficits. Transient hypoxia, aspiration secondary to ERCP. Empirically started on Unasyn. Nebs as needed. Aspiration precautions. Monitor LFTs. Antiemetics as needed. Check HbA1c. I personally reviewed the record. Patient is interviewed and examined at bedside. Patient's care is coordinated with Zohreh Jaime PA-C. Please refer to the documentation above for details of patient's presentation and for discussion of other issues. (1) Aspiration into airway Encounter type: initial encounter Qualified Code(s): T17.908A - Unspecified foreign body in respiratory tract, part unspecified causing other injury, initial encounter
[2022-03-29 14:09] LABS: Appearance Urine Clear (Clear); Bilirubin Urine Negative (Negative); Blood Urine Negative (Negative); Color Urine Yellow; Glucose Urine UA Negative (Negative); Ketones Urine Negative (Negative); Leukocyte Esterase Urine Negative (Negative); Nitrite Urine Negative (Negative); Protein Urine Negative (Negative); Specific Gravity Urine 1.023 (1.000-1.030); Urobilinogen Urine Negative (Negative)
[2022-03-29] MEDS ORDERED: ALBUTEROL 0.083% NEBU SOLN 3 ML VIAL NEB PRN (15:22)
[2022-03-29] MEDS ORDERED: DEXTROMETHORPHAN POLYMR COMPLX 60 MG/10 ML UDP PO PRN (15:22)
[2022-03-29] MEDS ORDERED: ALUMINUM/MAGNESIUM SUSP 30 ML UDC PO PRN (15:22)
[2022-03-29] MEDS ORDERED: POLYETHYLENE (MIRALAX) 17 GM PACK PO PRN (15:22)
[2022-03-29] MEDS ORDERED: ACETAMINOPHEN 325 MG TAB PO PRN (15:22)
[2022-03-29] MEDS ORDERED: ONDANSETRON INJ 2 MG/ML 2 ML VIAL IV PRN (15:22)
[2022-03-29] MEDS ORDERED: MoRPHine SULFATE 4 MG/ML 1 ML CARP\\VIAL IV PRN (21:18)
[2022-03-29] MEDS: AMPICILLIN/SULBACTAM SOD 3,000 MG in 0.9 % SODIUM CHLORIDE 100 ML IV SCH (22:08)
[2022-03-30] MEDS: AMPICILLIN/SULBACTAM SOD 3,000 MG in 0.9 % SODIUM CHLORIDE 100 ML IV SCH ×2 (05:43→10:04)
--- NOTE | 2022-03-30 05:56 | Electrocardiogram Report ---
Test Reason : Blood Pressure : / mmHG Vent. Rate : 061 BPM Atrial Rate : 061 BPM P-R Int : 184 ms QRS Dur : 082 ms QT Int : 432 ms P-R-T Axes : 041 046 053 degrees QTc Int : 434 ms Normal sinus rhythm Low voltage QRS Borderline ECG When compared with ECG of 23-Feb-2022 00:56, No significant change Confirmed by Yuan Floyd ([id number]) on 03/30/2022 5:56:25 AM Referred By: Confirmed By:Yuan Floyd
[2022-03-30] MEDS ORDERED: LEVOTHYROXINE SODIUM 25 MCG TABLET PO SCH (06:30)
[2022-03-30 08:32] LABS: Basophils # (auto) 0.04 K/uL (0-0.2); Basophils % (auto) 0.3 %; Eosinophils # (auto) 0.06 K/uL (0-0.50); Eosinophils % (auto) 0.5 %; Hematocrit (blood only) 36.2 % (34.1-44.9); Immature Granulocytes # (auto) 0.04 K/uL (0.00-0.02); Immature Granulocytes % (auto) 0.3 %; Lymphocytes # (auto) 1.29 K/uL (1.2-3.4); Mean Corpuscular Hemoglobin 28.7 pg (25.0-34.0); Mean Corpuscular Hgb Conc 33.1 g/dL (32.0-36.0); Mean Corpuscular Volume 86.6 fL (80.0-100.0); Mean Platelet Volume 11.7 fL (9.4-12.3); Monocytes # (auto) 0.89 K/uL (0.24-0.82); Monocytes % (auto) 7.6 %; Neutrophils % (auto) 80.3 %; Platelet Count 197 K/uL (130-400); RDW Coefficient of Variation 13.6 % (11.5-14.5); RDW Standard Deviation 42.9 fL (36.4-46.3); Red Blood Count 4.18 M/uL (3.93-5.22); White Blood Count 11.72 K/ul (4.8-10.8)
[2022-03-30 08:50] LABS: Estimated Average Glucose 131 mg/dl; Hemoglobin A1C 6.2 % (4.5-5.6)
[2022-03-30 09:00] LABS: Albumin Globulin Ratio 1.6 (0.9-2); Albumin Level 3.9 gm/dl (3.4-5.0); BUN Creatinine Ratio 22.4 (10-20); Bilirubin,Total 5.4 mg/dl (0.2-1.0); Calcium 8.8 mg/dl (8.5-10.1); Creatinine Clr Calc Pharmacy 56.7 ml/min; Est GFR (African American) 76.1 ml/min; Est GFR (Non-African American) 65.6 ml/min; Globulin 2.4 gm/dl (2.5-4.0); Potassium 3.8 mmol/L (3.5-5.1); Total Protein 6.3 gm/dl (6.0-8.3)
--- NOTE | 2022-03-30 09:52 | XRay Report ---
XR chest 1V portable CLINICAL HISTORY: asp pna TECHNIQUE: Single frontal radiograph of the chest was obtained. Comparison: Comparison is made to chest radiograph 03/29/2022 FINDINGS: No lines and tubes are seen. The cardiomediastinal silhouette is normal. The lungs are clear. No evid ence of pleural effusion or pneumothorax. IMPRESSION: No acute abnormalities and in particular no evidence of pneumonia. ACT 112: Negative or not required by law. Electronically signed by: Jeff Lee M.D. 03/30/2022 9:50 AM
[2022-03-30] MEDS ORDERED: CIPROFLOXACIN 500 MG TAB PO SCH (10:30)
--- NOTE | 2022-03-30 12:05 | Hospitalist Progress Note ---
Date of Service March 30, 2022 Assessment & Plan (1) Aspiration into airway: (2) Hypoxia: Plan This is a 76-year-old female who has a significant past medical history of hypothyroidism, CKD stage IIIa, recurrent gram-negative bacteremia, fatty liver, elevated LFTs who presents to ED after being referred from outpatient endoscopy suite status post ERCP with concern for aspiration into airway. Aspiration into airway-ruled out S/P ERCP Secondary to sphincter of Oddi dysfunction/spasm, acquired biliary duct dilatation with biliary sphincterotomy, biliary tree swept and nothing found, 1 plastic pancreatic stent placed in the ventral pancreatic duct hypoxia - resolved continue prn nebs encourage incentive spirometry, flutter valve prn delsym for cough suppression Empiric IV unasyn for aspiration Clinically much better and denies any respiratory symptoms Initial chest x-ray yesterday and repeat chest x-ray this morning did not show any evidence of aspiration She will not require any antibiotic for suspected aspiration which has been ruled out She will be discharged home this afternoon Elevated LFTS pt following GI for elevated LFTS, s/p ERCP Expected to have abnormal LFTs following ERCP No signs of infection Discussed with the GI and was advised to put Cipro for 5 days She will be discharged home and will get an outpatient appointment with the GI hx of gram negative bacteremia x 4 currently undergoing GI w/u had OP c scope which revealed tubular adenoma polyp Had ERCP today, await patholoy Hypothyroidism continue levothyroxine DVT ppx: SCDS, likely d/c in a.m., if to remain hospitalized recommend initiating chemical ppx Dispo: tele PCP: Julio Cesar FULL CODE Discharge home this afternoon Admission and Anticipated Discharge Date Admission Date: March 29, 2022 Subjective 03/30/2022 The patient was seen and examined in medical telemetry unit She complains of epigastric discomfort but did not have any respiratory symptoms No cough no shortness of breath at rest No nausea and or vomiting She has been ambulating in the room without any symptoms Review of Systems Review of Systems: All systems reviewed and are unremarkable except as noted below Gastrointestinal: Minimal epigastric pain Physical Exam Physical Exam: Sitting on the bed without any acute distress Constitutional: + ill appearing and average body habitus Eyes: PERRL, conjunctivae normal, anicteric sclerae ENMT: external ear and nose normal, oropharynx normal Neck: trachea midline, no thyromegaly Respiratory: no respiratory distress Auscultation: lungs clear to auscultation bilaterally Cardiovascular: Rate/Rhythm: regular rate and regular rhythm; not tachycardic Heart Sounds: normal S1 and normal S2; no murmur Extremities: no edema Gastrointestinal (Abdomen): Inspection/Auscultation: normal bowel sounds; abdomen not distended Percussion/Palpation: + abdomen tender (Mildly tender in the epigastrium) and abdomen soft Musculoskeletal: No acute arthritis in any joint Neurologic: normal touch/pain/proprioception and moves all extremities; no focal motor deficits Psychiatric: A+Ox3, euthymic affect Lymphatic: no cervical or axillary lymphadenopathy Results & Data Results & Data ([facility]) Vital Signs (Past 12 Hours) Vital Signs Temp Pulse Pulse Resp BP Pulse Ox O2 Del Method 03/30/22 07:56 37.0 C 60 18 161/69 H 93 03/30/22 07:32 Room Air 03/30/22 07:24 62 03/30/22 04:56 93 Room Air 03/30/22 04:29 37.1 C 72 19 147/74 H 95 Nasal Cannula O2 Flow Rate 03/30/22 07:56 03/30/22 07:32 03/30/22 07:24 03/30/22 04:56 03/30/22 04:29 1 Laboratory Results Short CBC 03/30/22 Range/Units 07:16 WBC 11.72 H (4.8-10.8) K/ul Hgb 12.0 (12.0-16.0) g/dl Hct 36.2 (34.1-44.9) % Plt Count 197 (130-400) K/uL BMP 03/29/22 03/30/22 11:36 07:16 Sodium 139 138 Potassium 4.3 3.8 Chloride 107 106 Carbon Dioxide 24 26 BUN 20 19 Creatinine 0.86 0.85 Glucose 168 H 112 H Calcium 8.5 8.8 Liver Function 03/29/22 03/30/22 Range/Units 11:36 07:16 Total Bilirubin 0.7 5.4 H D (0.2-1.0) mg/dl AST 138 H 269 H (13-39) U/L ALT 67 H 250 H (7-52) U/L Alkaline Phosphatase 81 154 H (34-104) U/L Albumin 3.8 3.9 (3.4-5.0) gm/dl Urine 03/29/22 Range/Units 13:36 Urine Color Yellow Urine Appearance Clear (Clear) Urine pH 5.0 (4.5-7.5) Ur Specific [place] 1.023 (1.000-1.030) Urine Protein Negative (Negative) Urine Glucose (UA) Negative (Negative) Medications Administered Current Inpatient Medications Acetaminophen (Acetaminophen 325 Mg Tab) 650 mg PO Q4H PRN PRN Reason: Pain or Fever Stop: 04/28/22 15:21 Al Hydrox/Mg Hydrox/Simethicone (Aluminum/Magnesium Susp 30 Ml Udc) 15 ml PO Q4H PRN PRN Reason: Dyspepsia Stop: 04/28/22 15:21 Last Admin: 03/30/22 05:07 Dose: 15 ml Albuterol (Albuterol 0.083% Nebu Soln 3 Ml Vial) 2.5 mg NEB Q6R PRN; Protocol PRN Reason: sob/wheezing Stop: 04/28/22 15:21 Ciprofloxacin (Ciprofloxacin 500 Mg Tab) 500 mg PO BID GEENA; Protocol Stop: 04/03/22 10:29 Last Admin: 03/30/22 10:53 Dose: 500 mg Dextromethorphan Polymer Complex (Dextromethorphan Polymr Complx 60 Mg/10 Ml Udp) 60 mg PO Q12H PRN PRN Reason: Cough Stop: 04/28/22 15:21 Levothyroxine Sodium (Levothyroxine Sodium 25 Mcg Tablet) 25 mcg PO DAILYBB GEENA Stop: 04/29/22 06:29 Last Admin: 03/30/22 07:55 Dose: 25 mcg Morphine Sulfate (Morphine Sulfate 4 Mg/Ml 1 Ml Carp\Vial) 3 mg IV Q4H PRN PRN Reason: Pain Stop: 04/12/22 21:17 Last Admin: 03/29/22 22:06 Dose: 3 mg Ondansetron HCl (Ondansetron Inj 2 Mg/Ml 2 Ml Vial) 4 mg IV Q6H PRN PRN Reason: Nausea Stop: 04/28/22 15:21 Last Admin: 03/29/22 17:17 Dose: 4 mg Polyethylene Glycol (Polyethylene (Miralax) 17 Gm Pack) 17 gm PO DAILY PRN PRN Reason: Constipation Stop: 04/28/22 15:21 (1) Aspiration into airway Encounter type: initial encounter Qualified Code(s): T17.908A - Unspecified foreign body in respiratory tract, part unspecified causing other injury, initial encounter
--- NOTE | 2022-03-30 15:40 | Electrocardiogram Report ---
Test Reason : Blood Pressure : / mmHG Vent. Rate : 063 BPM Atrial Rate : 063 BPM P-R Int : 118 ms QRS Dur : 070 ms QT Int : 434 ms P-R-T Axes : 025 037 044 degrees QTc Int : 444 ms Normal sinus rhythm Low voltage QRS Septal infarct , age undetermined Abnormal ECG When compared with ECG of 29-MAR-2022 11:19, Septal infarct is now Present Confirmed by Mikel Monteiro ([id number]) on 03/30/2022 3:40:17 PM Referred By: REFERRED SELF Confirmed By:Mikel Monteiro
--- NOTE | 2022-03-30 15:58 | Electrocardiogram Report ---
Test Reason : Blood Pressure : / mmHG Vent. Rate : 060 BPM Atrial Rate : 060 BPM P-R Int : 160 ms QRS Dur : 080 ms QT Int : 448 ms P-R-T Axes : 040 027 045 degrees QTc Int : 448 ms Normal sinus rhythm Nonspecific ST abnormality Abnormal ECG When compared with ECG of 29-MAR-2022 21:57, (unconfirmed) Criteria for Septal infarct are no longer Present Confirmed by Mikel Monteiro ([id number]) on 03/30/2022 3:58:17 PM Referred By: REFERRED SELF Confirmed By:Mikel Monteiro
--- NOTE | 2022-03-31 07:46 | Discharge Summary ---
Date of Service March 30, 2022 Admission HPI Per Admitting Provider This is a 76-year-old female who has a significant past medical history of hypothyroidism, CKD stage IIIa, recurrent gram-negative bacteremia, fatty liver, elevated LFTs who presents to ED after being referred from outpatient endoscopy suite status post ERCP with concern for aspiration into airway. She underwent ERCP after receiving fentanyl. She did require [id number] after receiving fentanyl. During ERCP she appeared to have aspirated and there was bile noted in the oropharynx and upper airway. She was referred over by anesthesiology from the [facility] due to initially having significant rhonchi And hypoxia. She was treated in the field with DuoNeb and symptoms did improve but continued to remain mildly hypoxic. She was transported to ED for further evaluation. In ED she continued to remain rhonchorous and therefore received additional nebulizer treatment. She was able to be weaned off oxygen. She continues to have a mild dry cough but otherwise denies feeling short of breath or wheezing. She denies any fever, chills, sweats, lightheadedness, dizziness, chest pain, palpitations, hemoptysis, nausea, vomiting, abdominal pain. She does report mild epigastric discomfort rated a 2/10. She feels this may be associated to being hungry as she has been n.p.o. since midnight. She did receive indomethacin suppository post ERCP to prevent post ercp pancreatitis. Admission Exam Per Admitting Provider Physical Exam: Constitutional: WD/WN, vitals as above, NAD, sitting up in bed, pleasant, conversing easily Head: Normocephalic, Atraumatic Eyes: PERRL, conjunctivae normal, anicteric sclerae ENMT: external ear and nose normal, oropharynx normal Neck: trachea midline, no thyromegaly normal visual inspection Respiratory: normal respiratory effort, lungs clear to auscultation with mild bibasilar crackles, no wheeze, or rhonchi. Normal insp/exp effort, no accessory muscle use Cardiovascular: RRR, no murmur, no edema Vessels: no JVD or carotid bruit Chest: normal inspection of chest Abdomen: normal bowel sounds, soft, nontender, no hepatosplenomegaly Musculoskeletal: no cyanosis or clubbing, extremities motor strength 5/5 Skin: no rashes, warm and dry normal turgor Neurologic: PERRL, EOMI, accommodation nl, no face palsy, no dysarthria CN's II-XI intact bilaterally and moves all extremities Psychiatric: A+Ox3, euthymic affect Lymphatic: no cervical or axillary lymphadenopathy : deferred Principal Diagnosis Hypoxia following ERCP-resolved, no aspiration pneumonia, abnormal LFTs Discharge Exam Sitting on the bed without any acute distress Constitutional + ill appearing and average body habitus Eyes PERRL, conjunctivae normal, anicteric sclerae ENMT external ear and nose normal, oropharynx normal Neck trachea midline, no thyromegaly Respiratory no respiratory distress Auscultation: lungs clear to auscultation bilaterally Cardiovascular Rate/Rhythm: regular rate and regular rhythm; not tachycardic Heart Sounds: normal S1 and normal S2; no murmur Extremities: no edema Gastrointestinal (Abdomen) Inspection/Auscultation: normal bowel sounds; abdomen not distended Percussion/Palpation: + abdomen tender (Mildly tender in the epigastrium) and abdomen soft Neurologic normal touch/pain/proprioception and moves all extremities; no focal motor deficits Psychiatric A+Ox3, euthymic affect Lymphatic no cervical or axillary lymphadenopathy Discharge Data Allergies Allergy/AdvReac Type Severity Reaction Status Date / Time cefepime Allergy Intermediate HIVES Verified 03/29/22 13:50 Consultations 03/29/22 12:17 ED Decision to Admit Stat Hospital Course (1) Aspiration into airway: (2) Hypoxia: Plan This is a 76-year-old female who has a significant past medical history of hypothyroidism, CKD stage IIIa, recurrent gram-negative bacteremia, fatty liver, elevated LFTs who presents to ED after being referred from outpatient endoscopy suite status post ERCP with concern for aspiration into airway. Aspiration into airway-ruled out S/P ERCP Secondary to sphincter of Oddi dysfunction/spasm, acquired biliary duct dilatation with biliary sphincterotomy, biliary tree swept and nothing found, 1 plastic pancreatic stent placed in the ventral pancreatic duct hypoxia - resolved continue prn nebs encourage incentive spirometry, flutter valve prn delsym for cough suppression Empiric IV unasyn for aspiration Clinically much better and denies any respiratory symptoms Initial chest x-ray yesterday and repeat chest x-ray this morning did not show any evidence of aspiration She will not require any antibiotic for suspected aspiration which has been ruled out She will be discharged home this afternoon Elevated LFTS pt following GI for elevated LFTS, s/p ERCP Expected to have abnormal LFTs following ERCP No signs of infection Discussed with the GI and was advised to put Cipro for 5 days She will be discharged home and will get an outpatient appointment with the GI hx of gram negative bacteremia x 4 currently undergoing GI w/u had OP c scope which revealed tubular adenoma polyp Had ERCP today, await patholoy Hypothyroidism continue levothyroxine DVT ppx: SCDS, likely d/c in a.m., if to remain hospitalized recommend initiating chemical ppx Dispo: tele PCP: Julio Cesar FULL CODE Discharge home this afternoon Total Time Total Time Spent Total Time Spent (In Minutes): 35 minutes Discharge Plan Discharge Items Patient Disposition: Home - Self-Care Reason For Visit: ASPIRATION S/P ERCP Discharge Diagnosis: Hypoxia following ERCP-resolved, no aspiration pneumonia, abnormal LFTs Condition on Discharge: Good Activity: Resume your previous activity Non-emergency contact: Primary Care Provider Call non-emergency contact if: you have any medication questions and your symptoms worsen Follow-up/Referrals: Antonia Harrell MD [Primary Care Provider] - (Date & Time 04/05/2022 11:20 AM Provider Jaylan Salas MD Department Family Medicine [facility] ) Sybil Sy CRNP [Nurse Practitioner] - (Date & Time 04/24/2022 9:30 AM Provider MADAY Christian Department Gastroenterology, [facility] ) Diet: Regular Addtl Attending Provider Instructions: Please finish the course of her antibiotic Please take precautions to avoid falls Keep appointment with your healthcare providers Pending Studies at Discharge: No Stand-Alone Forms: My [facility], Smoking Cessation Medications and DC Order Prescriptions: New ciprofloxacin HCl 500 mg Tablet 500 mg PO BID Qty: 10 0RF Continued levothyroxine [Synthroid] 25 mcg tablet 25 mcg PO QAM Discharge Orders: Discharge Order (Routine); Ordered 03/30/22 Ordered By: Shravan Naranjo/Other Patient Handouts: A1C, Chest Lung Problems Dx, 5 Steps for Eating Healthier Admission Data Admit Date/Time: 03/29/22 12:22 Attending Provider: Shravan Barrera Admit Provider: Donny Fischer Primary Care Provider: Julio Cesar,Doriann L. Other Providers: Donny Fischer Other Interventions: Discharge Summary Assessment (RN) Last Done: 03/30/22 14:52
== END 2022-03-30 15:55 | disposition home or self-care (01) | DRG 206 ==
LOC: ED 10:47 → EDINP 12:22 → SUATTDRO 12:22 → 2N 20:30